=== PATIENT | female | born 1945 | race Caucasian/White ===

== ENCOUNTER 2023-10-23 15:52 | Inpatient (IN) | payer OTHER ==
[2023-10-23] MEDS ORDERED: ONDANSETRON 4 MG/2 ML VIAL ONE (16:09)
[2023-10-23] MEDS ORDERED: MORPHINE 4 MG/ML SYR ONE (16:09)
[2023-10-23] MEDS ORDERED: PANTOPRAZOLE 40 MG INJ ONE (16:09)
[2023-10-23] MEDS ORDERED: FAMOTIDINE 20 MG/2 ML VIAL IV ONE (16:10)
[2023-10-23] MEDS ORDERED: NA CHLORIDE 0.9% 1,000 ML ONE ×2 (16:10→19:06)
[2023-10-23 16:22] LABS: Absolute Lymphocytes (CBC) 0.3 K/uL (0.7-4.9); Absolute Neutrophil 1.5 K/uL (1.8-8.0); Basophils % 0.4 % (0-1.3); Eosinophils % 0.4 % (0-4.4); Hematocrit 37.2 % (36.0-45.0); Hemoglobin 12.4 g/dL (12.0-15.0); Lymphocytes % 15.1 % (15.3-44.8); MCH 29.7 pg (27.0-35.0); MCHC 33.4 g/dL (32.0-36.0); MPV 8.8 fL (7.6-11.3); Monocytes % 0.6 % (3.3-12.3); Neutrophils % 83.5 % (41.7-73.7); Nucleated Red Blood Cells % 0.7 % (0-0); Platelets 265 thou/uL (152-406); RBC Red Blood Cell Count 4.17 M/uL (3.86-4.86)
[2023-10-23 16:43] LABS: Albumin 3.1 g/dL (3.4-5.0); Anion Gap 18.7 mEq/L (5.0-15.0); Bilirubin Total 0.6 mg/dL (0.2-1.0); Protein, Total 6.1 g/dL (6.4-8.2)
[2023-10-23 16:46] LABS: Potassium 1.7 mEq/L (3.5-5.1)
[2023-10-23] MEDS ORDERED: KCL 20 MEQ/100 mL IVPB 200 ML IV ONE (16:47)
[2023-10-23] MEDS ORDERED: Magnesium Sulfate 2gm IVPB 2 G/50 ML BAG IV ONE (16:47)
[2023-10-23 16:54] LABS: Differential Total Cells Count 100
[2023-10-23 16:55] LABS: Band Neutrophils 1 % (0-1); Blood Morphology Comment NOT SEEN (NOT SEEN); Lymphocytes 16 % (15-42); Monocytes 0 % (0-10); Platelet Estimate ADEQ; Segmented Neutrophils 83 % (40-80); White Blood Cell Scan OK (OK)
[2023-10-23 17:11] LABS: Sqamous Epithelial <5 /HPF (None Seen); Urine Bacteria <20 /HPF (<20); Urine Bilirubin NEGATIVE (Negative); Urine Blood 3+ (OVER) (Negative); Urine Clarity Extremely Turbid (Clear); Urine Color Light-Brown (Yellow); Urine Culture Reflex Order REFLEXED; Urine Glucose 4+ (Over) (Negative); Urine Ketones 1+ (Negative); Urine Microscopic Reflex YN ORDER UMIC; Urine Nitrite NEGATIVE (Negative); Urine Protein 1+ (Negative); Urine RBC >50 /HPF (None Seen); Urine Urobilinogen Normal (Normal); Urine WBC >50 /HPF (<5); Urine Yeast (Budding) Trace /HPF (None Seen)
[2023-10-23 17:43] LABS: CDIFF INTERNAL NEG CONTROL White Background (WHITE BKGD); STOOL CONSISTENCY Formed/Solid (soft)
[2023-10-23 17:44] LABS: C.diff Antigen/Toxin Ag neg : Tox neg (NEG : NEG)
[2023-10-23] MEDS ORDERED: CEFTRIAXONE 1000 MG/VIAL ONE (17:55)
[2023-10-23] MEDS ORDERED: NA CHLORIDE 0.9% 50 ML ONE (17:56)
--- NOTE | 2023-10-23 18:36 | RAD REPORT ---
EXAM DESCRIPTION: CT - Abdomen Pelvis W Contrast - 10/23/2023 5:14 pm CLINICAL HISTORY: ABD PAIN COMPARISON: No comparisons TECHNIQUE: Thin cut axial CT imaging of the abdomen and pelvis was performed following intravenous a dministration of iodinated contrast. Multiplanar reformats were generated and reviewed. All CT scans are performed using dose optimization technique as appropriate and may include automated exposure control or mA/KV adjustment according to patient size. FINDINGS: No suspicious findings in the lung bases. The liver demonstrates areas of hypoattenuation extending along the periportal tracts, suggesting a d egree of periportal edema. Adrenal glands, spleen, and pancreas show no suspicious findings. Mild per icholecystic fluid. Cholelithiasis. Symmetric renal function is seen with no suspicious mass or radiopaque calculi. Mild right perinephri c edema. Mild right hydronephrosis and proximal hydroureter. Small amounts of gas along the proximal to mid right ureter and right upper to mid calices. Small volume of air layering anti dependently in the urinary bladder. Mild bowel wall thickening throughout the ascending through descending colon. Minimally prominent neli rt segments of small bowel with short-segment air-fluid levels, with no clear transition point. No fr ee air, free fluid or inflammatory stranding. No hernia, mass or bulky lymphadenopathy. The urinary b ladder is without significant finding. Moderate vertebral body height loss at L3, likely related to chronic superior endplate compression de formity. Diffuse osteopenia. No other suspicious bony findings. IMPRESSION: Mild bowel wall thickening throughout most of the colon proximally, suggesting segmental colitis. Short segments of mildly prominent fluid-filled small bowel as well, may relate to enteriti s or mild ileus. No evidence of obstruction. Mild right hydronephrosis and proximal hydroureter. Small amounts of gas along the right upper urinar y tract, concerning for ascending infection with gas-forming organism. Findings suggesting periportal edema. Mild pericholecystic fluid. Please correlate clinically for shayla dence of acute hepatitis. Likely chronic superior endplate compression deformity at L3. The findings were communicated to Mark Purdy on 10/23/2023 at 18:25 hours.
[2023-10-23 18:37] LABS: PT Prothrombin Time 11.9 SECONDS (9.5-12.5); Protime INR 1.08
[2023-10-23] MEDS ORDERED: METRONIDAZOLE 500mg IVPB 500 MG/100 ML BAG IV ONE (18:48)
[2023-10-23] MEDS ORDERED: SODIUM CHLORIDE 0.9% 10ML INJ IV PRN (19:02)
[2023-10-23] MEDS: METRONIDAZOLE 500mg IVPB 500 MG/100 ML BAG IV SCH (19:03)
[2023-10-23] MEDS: CEFTRIAXONE 1,000 MG in NA CHLORIDE 0.9% 50 ML IVPB SCH (19:04)
--- NOTE | 2023-10-23 19:05 | P.HP ---
Certification for Inpatient Patient admitted to: Inpatient With expected LOS: >2 Midnights Practitioner: I am a practitioner with admitting privileges, knowledge of patient current condition, hospital course, and medical plan of care. Services: Services provided to patient in accordance with Admission requirements found in Title 42 Section 412.3 of the Code of Federal Regulations Patient History Date of Service: 10/23/23 Reason for admission: Generalized weakness, nausea vomiting and diarrhea History of Present Illness: 77 yrs old Female with past medical history of hypertension, hyperlipidemia, diabetes, hypothyroidism, came in with nausea vomiting and diarrhea which has been going on for last 2 days and has been progressively worsening. Also associated with abdominal discomfort. Patient has baseline dementia and hence could not provide much of a history hence most of the history is obtained from the chart review and also talking to the family member at the bedside. Patient started having abdominal discomfort initially especially on the left lower quadrant lateral spreading to diffuse. Not associate with any fever. Associated with diarrhea. Had some blood in the stool. No sick contacts. Denies any chest pain or shortness of breath. Associated with nausea and vomiting. Patient was assessed in the ER and was found to have UTI as well as colitis and was admitted for further management Home medications list reviewed: Yes - Past Medical/Surgical History Diabetic: Yes Past Medical History: Reviewed- Non-Contributory Past Surgical History: Reviewed- Non-Contributory - Family History Family History: Reviewed- Non-Contributory - Social History Smoking Status: Never smoker Review of Systems is unable to be obtained Physical Examination - Vital Signs Temperature: 98.2 F Blood Pressure: 148/86 Pulse: 88 Respirations: 18 Pulse Ox (%): 94 - Physical Exam General: Alert, Oriented x1, Cooperative, Mild distress HEENT: Atraumatic, Normocephalic Neck: Supple, 2+ carotid pulse no bruit Respiratory: Clear to auscultation bilaterally, Normal air movement Cardiovascular: Regular rate/rhythm, Normal S1 S2 Capillary refill: <2 Seconds Gastrointestinal: W/out hepatosplenomegaly, No masses, No rebound, No guarding, Tenderness Musculoskeletal: No clubbing, No swelling Integumentary: No rashes, No tenderness/swelling Neurological: Normal strength at 5/5 x4 extr, Normal tone, Sensation intact, Normal reflexes 2+, Normal affect Lymphatics: No axilla or inguinal lymphadenopathy - Studies Laboratory Data (last 24 hrs) 10/23/23 10/23/23 10/23/23 18:11 16:01 16:01 WBC 1.80 L Hgb 12.4 Hct 37.2 Plt Count 265 PT 11.9 INR 1.08 APTT 23.0 L Sodium 140 Potassium 1.7 L* BUN 19 H Creatinine 0.96 Glucose 295 H Total Bilirubin 0.6 AST 12 L ALT 16 Alkaline Phosphatase 39 L Lipase 37 Assessment and Plan - Problems (Diagnosis) (1) Colitis Current Visit: Yes Status: Acute Plan: Colitis Monitor closely Started on IV antibiotic C. difficile is negative CT findings noted IV hydration Severe hypokalemia Electrolytes monitor and replace accordingly Lactic acidosis IV hydration Continue antibiotics Will obtain cultures Will change antibiotic as per sensitivity UTI Started on IV antibiotics Empirically Will obtain cultures Change antibiotic as per sensitivity Diabetes Insulin sliding scale Accu-Chek before every meal and at bedtime Hypertension Continue home medications Atarax as needed Leukopenia Monitor CBC in a.m. GI/DVT prophylaxis Advanced directive full code Discharge Plan: Home Plan to discharge in: Greater than 2 days - Advance Directives Does patient have a Living Will: No Does patient have a Durable POA for Healthcare: No - Code Status/Comfort Care Code Status: Full Code Time Spent Managing Pts Care (In Minutes): 49
--- NOTE | 2023-10-23 19:15 | EDPHYS ---
Physician Documentation [facility] Name: Precious Altamirano Age: 77 yrs Sex: Female : 1945 Arrival Date: 10/23/2023 Time: 15:52 Bed 20 Private MD: ED Physician Mark Purdy HPI: 10/22 16:25 This 77 yrs old Female presents to ER via EMS with complaints of diarrhea. rt 16:25 Patient presents to the ED with reported diarrhea, blood in stools. The diarrhea is rt reportedly mostly brown, with blood in the toilet. Patient complains of nausea, vomiting, abdominal pain. Rest the history is limited due to patient with baseline dementia. Unclear what the timing of onset was. Symptoms are moderate in severity, no other aggravating or alleviating factors.. Historical: - Allergies: 16:03 No Known Allergies; mb9 - Home Meds: 16:03 glimepiride 4 mg Oral tablet 1 tab [Active]; hydrochlorothiazide 12.5 mg Oral tablet mb9 [Active]; levothyroxine 112 mcg capsule [Active]; lovastatin 20 mg Oral tablet [Active]; metformin 500 mg Oral tablet [Active]; pioglitazone 30 mg oral tablet [Active]; - PMHx: 16:03 Hypertensive disorder; Hypothyroidism; hyperlipidemia; Diabetes mellitus; mb9 - PSHx: 16:03 None; mb9 - Immunization history:: Adult Immunizations up to date. - Infectious Disease History:: Denies. - Social history:: Smoking status: Patient denies any tobacco usage or history of. - Family history:: not pertinent. ROS: 16:25 Unable to obtain ROS due to baseline dementia, rt Exam: 16:25 Constitutional: This is a well developed, well nourished patient who is awake, alert, rt and in no acute distress. Head/Face: Normocephalic, atraumatic. Chest/axilla: Normal chest wall appearance and motion. Nontender with no deformity. No lesions are appreciated. Cardiovascular: Regular rate and rhythm with a normal S1 and S2. No gallops, murmurs, or rubs. Normal PMI, no JVD. No pulse deficits. Respiratory: Lungs have equal breath sounds bilaterally, clear to auscultation and percussion. No rales, rhonchi or wheezes noted. No increased work of breathing, no retractions or nasal flaring. Skin: Warm, dry with normal turgor. Normal color with no rashes, no lesions, and no evidence of cellulitis. MS/ Extremity: Pulses equal, no cyanosis. Neurovascular intact. Full, normal range of motion. Neuro: Awake and alert, GCS 15, oriented to person, place, time, and situation. Cranial nerves II-XII grossly intact. Motor strength 5/5 in all extremities. Sensory grossly intact. Cerebellar exam normal. Normal gait. 16:25 ECG was reviewed by the Attending Physician. 16:25 Abdomen/GI: Mild abdominal tenderness diffusely without rebound, guarding, distention. Brown stool in rectal vault, external hemorrhoid noted, Vital Signs: 16:00 BP 153 / 80; Pulse 129; Resp 18; Temp 98.2; Pulse Ox 100% on R/A; Weight 61.23 kg; mb9 Height 5 ft. 4 in. ; Pain 10/10; 16:42 BP 107 / 53; Pulse 132; Resp 18; Pulse Ox 100% on R/A; mb9 17:48 BP 147 / 66; Pulse 124; Resp 16; Pulse Ox 99% on R/A; mb9 19:16 BP 108 / 92; Pulse 110; Resp 17; Pulse Ox 97% on R/A; Pain 0/10; tm6 21:11 BP 100 / 57; Pulse 96; Pulse Ox 98% on R/A; Pain 0/10; tm6 16:00 Body Mass Index 23.17 (61.23 kg, 162.56 cm) mb9 16:00 Pain Scale: Adult mb9 19:16 Pain Scale: Adult tm6 21:11 Pain Scale: Adult tm6 MDM: 15:59 Patient medically screened. rt 19:14 Differential Diagnosis UTI, sepsis, colitis. Data reviewed: vital signs, nurses notes, rt lab test result(s), EKG, radiologic studies. Consideration of Admission/Observation Patient was admitted/placed on observation. Management of patient was discussed with the following: Hospitalist: Agrees to admit. Independent interpretation of the following test(s) in the Emergency Department CT Scan: My interpretation is No bowel obstruction seen on interpretation of CT scan images. Care significantly affected by the following chronic conditions: Hypertension. Counseling: I had a detailed discussion with the patient and/or guardian regarding the historical points, exam findings, and any diagnostic results supporting the discharge/admit diagnosis, lab results, radiology results, the need for further work-up and treatment in the hospital. Response to treatment: the patient's symptoms have mildly improved after treatment. ED course: Patient's initial presentation was not thought to be due to sepsis, thought to be due to GI bleed. Once infectious source (UTI) was identified, blood cultures, lactate were drawn, IV fluids were started. Patient did meet septic shock criteria with a lactate greater than 4, at that time, further fluids were added. Patient to be admitted for further care.. 10/22 16:00 Order name: CBC with Diff; Complete Time: 17:52 rt 10/22 16:00 Order name: CMP; Complete Time: 17:52 rt 10/22 16:00 Order name: Lipase; Complete Time: 17:52 rt 10/22 16:00 Order name: Urinalysis w/ reflexes; Complete Time: 17:52 rt 10/22 16:24 Order name: CDIFF; Complete Time: 17:52 rt 10/22 16:26 Order name: CBC Smear Scan; Complete Time: 17:52 EDMS 10/22 16:55 Order name: Manual Differential; Complete Time: 17:52 EDMS 10/22 17:19 Order name: Urine Culture EDMS 10/22 17:53 Order name: Blood Culture Adult (2) rt 10/22 17:53 Order name: Lactate w/ 2H reflex if indic. rt 10/22 17:53 Order name: Protime (+inr); Complete Time: 18:49 rt 10/22 17:53 Order name: Ptt, Activated; Complete Time: 18:49 rt 10/22 19:04 Order name: Urinalysis w/ reflexes EDMS 10/22 19:04 Order name: CBC with Automated Diff EDMS 10/22 19:04 Order name: CBC with Automated Diff EDMS 10/22 19:04 Order name: Comprehensive Metabolic Panel EDMS 10/22 19:04 Order name: Comprehensive Metabolic Panel EDNH 10/22 19:06 Order name: Potassium EDMS 10/22 19:06 Order name: Potassium EDNH 10/22 20:57 Order name: CMP tm6 10/22 16:00 Order name: CT Abd/Pelvis - IV Contrast Only; Complete Time: 18:36 rt 10/22 16:00 Order name: IV Saline Lock; Complete Time: 16:03 rt 10/22 16:00 Order name: Labs collected and sent; Complete Time: 16:03 rt 10/22 16:43 Order name: Straight Cath - Urine; Complete Time: 16:43 mb9 10/22 16:43 Order name: EKG - Nurse/Tech; Complete Time: 16:43 mb9 10/22 17:53 Order name: Accucheck; Complete Time: 17:55 rt 10/22 17:53 Order name: Cardiac monitoring; Complete Time: 17:55 rt 10/22 17:53 Order name: IV Saline Lock - Large Bore; Complete Time: 17:55 rt 10/22 17:53 Order name: O2 Per Protocol; Complete Time: 17:55 rt 10/22 17:53 Order name: O2 Sat Monitoring; Complete Time: 17:55 rt 10/22 17:53 Order name: Vital Signs; Complete Time: 17:55 rt EC:25 Rate is 129 beats/min. Rhythm is regular, Sinus tachycardia with No ectopy. Left axis rt deviation noted. QRS interval is normal. QT interval is normal. No Q waves. Administered Medications: 16:08 Drug: Ondansetron IVP 4 mg IVP once; over 2 minutes Route: IVP; Site: right antecubital;mb9 18:53 Follow up: Response: No adverse reaction mb9 16:10 Drug: NS 0.9% IV 1000 ml IV at 1 bolus Per protocol; 1000 mL bolus Route: IV; Rate: 1 mb9 bolus; Site: right antecubital; 18:53 Follow up: Response: No adverse reaction; IV Status: Completed infusion mb9 16:10 Drug: morphine IVP or IV 2 mg IVP once over 4 mins Route: IVP; Infused Over: 4 mins; mb9 Site: right antecubital; 18:53 Follow up: Response: No adverse reaction mb9 16:16 Drug: Famotidine IVP 20 mg IVP once; dilute with 10 mL 0.9% NaCl; give over 2 minutes mb9 Route: IVP; Site: right antecubital; 18:53 Follow up: Response: No adverse reaction mb9 16:19 Drug: Pantoprazole IVP 40 mg IVP once Route: IVP; Site: right antecubital; mb9 16:53 Follow up: Response: No adverse reaction mb9 16:50 Drug: Magnesium Sulfate IVPB 2 grams IVPB once over 2 hrs Route: IVPB; Infused Over: 2 mb9 hrs; Site: right antecubital; 18:52 Follow up: Response: No adverse reaction; IV Status: Completed infusion mb9 17:00 Drug: Potassium Chloride IV 40 mEq IV at calculated rate once; administer over 4 hours mb9 Route: IV; Rate: calculated rate; Site: right antecubital; 18:15 Drug: Rocephin IV 1 grams IV at calculated rate once; Given slow IV push per pharmacy mb9 instructions Route: IV; Rate: calculated rate; Site: left forearm; 18:52 Follow up: Response: No adverse reaction; IV Status: Completed infusion mb9 18:52 Drug: metroNIDAZOLE IVPB 500 mg 100 ml IVPB at 200 ml/hr once over 30 mins Volume: 100 mb9 ml; Route: IVPB; Rate: 200 ml/hr; Infused Over: 30 mins; Site: left forearm; 19:16 Drug: NS 0.9% IV (30 ml/kg) 30 ml/kg IV at bolus once; Sepsis Protocol, subtract fluids tm6 already given Route: IV; Rate: bolus; Site: left antecubital; Disposition Summary: 10/23/23 19:14 Hospitalization Ordered Notes: Hospitalization Status: Inpatient Admission rt Provider: Gigi Sebastian rt [facility] ([facility] rt Condition: Guarded rt Problem: new rt Symptoms: have improved rt Bed/Room Type: Standard rt Room Assignment: 203(10/23/23 19:30) vk Diagnosis - Colitis rt - UTI rt - Septic shock rt - Hypokalemia rt Forms: - Medication Reconciliation Form rt - SBAR form rt - Leadership Thank You Letter rt Critical care time excluding procedures: 19:14 Critical care time: Bedside Care: 30 minutes, Consultation: 5 minutes. Total time: 35 rt minutes Signatures: Dispatcher [employer] Yolanda Avalos RN RN mb9 Mark Purdy MD MD rt Jag Perera RN RN tm6 Shereen Campbell Corrections: (The following items were deleted from the chart) 17:54 17:54 BLOOD CULTURE*+BA.LAB.BRZ ordered. EDMS EDMS 17:54 17:54 LACTATE+C.LAB.BRZ ordered. EDMS EDMS 17:54 PROTIME (+INR)+COAG.LAB.STACY ordered. EDMS EDMS 17:54 PTT, ACTIVATED+COAG.LAB.STACY ordered. EDMS EDMS :30 19:14 rt vk
--- NOTE | 2023-10-23 19:15 | ER ---
Nurse's Notes [facility] Name: Precious Altamirano Age: 77 yrs Sex: Female : 1945 Arrival Date: 10/23/2023 Time: 15:52 Bed 20 Private MD: Diagnosis: Colitis;UTI;Septic shock;Hypokalemia Presentation: 10/22 16:00 Chief complaint: Patient states: "toned out from [facility] for nausea and mb9 bloody stools that started today. 20 g right AC, 4 mg Zofran, and 1 Liter of NS.". Coronavirus screen: Vaccine status: Patient reports receiving the 2nd dose of the covid vaccine. Ebola Screen: No symptoms or risks identified at this time. Initial Sepsis Screen: Does the patient meet any 2 criteria? No. Patient's initial sepsis screen is negative. Does the patient have a suspected source of infection? No. Patient's initial sepsis screen is negative. Risk Assessment: Do you want to hurt yourself or someone else? Patient reports no desire to harm self or others. Onset of symptoms was October 23, 2023. 16:00 Method Of Arrival: EMS: [facility] mb9 16:00 Acuity: JAILENE 2 mb9 Triage Assessment: 16:01 General: Appears in no apparent distress. Behavior is calm, cooperative. Pain: mb9 Complains of pain in abdomen Pain does not radiate. Pain currently is 10 out of 10 on a pain scale. Quality of pain is described as throbbing, Pain began suddenly, Is continuous. EENT: No signs and/or symptoms were reported regarding the EENT system. Neuro: [place] Agitation-Sedation Scale (RASS): 0 - Alert and Calm Level of Consciousness is awake, confused, Oriented to person. Cardiovascular: Heart tones S1 S2 present Patient's skin is warm and dry. Respiratory: Airway is patent Respiratory effort is even, unlabored, Respiratory pattern is regular, symmetrical, Breath sounds are clear bilaterally. GI: Abdomen is flat, non-distended, Bowel sounds present X 4 quads. Abd is soft Abdomen is tender to palpation X 4 quads. Parent/caregiver reports the patient having nausea, bloody stools. : No signs and/or symptoms were reported regarding the genitourinary system. Derm: Skin is pink, warm \\T\\ dry. Musculoskeletal: Range of motion: intact in all extremities. Historical: - Allergies: 16:03 No Known Allergies; mb9 - Home Meds: 16:03 glimepiride 4 mg Oral tablet 1 tab [Active]; hydrochlorothiazide 12.5 mg Oral tablet mb9 [Active]; levothyroxine 112 mcg capsule [Active]; lovastatin 20 mg Oral tablet [Active]; metformin 500 mg Oral tablet [Active]; pioglitazone 30 mg oral tablet [Active]; - PMHx: 16:03 Hypertensive disorder; Hypothyroidism; hyperlipidemia; Diabetes mellitus; mb9 - PSHx: 16:03 None; mb9 - Immunization history:: Adult Immunizations up to date. - Infectious Disease History:: Denies. - Social history:: Smoking status: Patient denies any tobacco usage or history of. - Family history:: not pertinent. Screenin:16 [facility] ED Fall Risk Assessment (Adult) History of falling in the last 3 months, mb9 including since admission Yes- fall prone (multiple falls) (3 pts) Confusion or Disorientation Yes (5 pts) Intoxicated or Sedated No (0 pts) Impaired Gait No (0 pts) Mobility Assist Device Used No (0 pt) Altered Elimination No (0 pt) Score/Fall Risk Level 3 or more points = High Risk Oriented to surroundings, Maintained a safe environment, Educated pt \\T\\ family on fall prevention, incl call for assistance when getting out of bed, Assessed \\T\\ reinforced patient's understanding of fall precautions, Provided non-skid footwear. Abuse screen: Denies threats or abuse. Nutritional screening: No deficits noted. Tuberculosis screening: No symptoms or risk factors identified. Assessment: 16:54 Reassessment: Patient appears in no apparent distress at this time. No changes from mb9 previously documented assessment. Patient and/or family updated on plan of care and expected duration. Pain level reassessed. 17:54 Reassessment: Patient appears in no apparent distress at this time. No changes from mb9 previously documented assessment. Patient and/or family updated on plan of care and expected duration. Pain level reassessed. 19:16 Reassessment: No changes from previously documented assessment. Patient and/or family tm6 updated on plan of care and expected duration. Pain level reassessed. Patient is alert, oriented x 3, equal unlabored respirations, skin warm/dry/pink. 19:35 Reassessment: per Dr. Sebastian, do not send patient upstairs until potassium infusion is tm6 complete. Redraw potassium level prior to sending patient upstairs, but do not have to wait for the results. 21:12 Reassessment: Patient appears in no apparent distress at this time. No changes from tm6 previously documented assessment. Patient and/or family updated on plan of care and expected duration. Pain level reassessed. Patient is alert, oriented x 3, equal unlabored respirations, skin warm/dry/pink. Vital Signs: 16:00 BP 153 / 80; Pulse 129; Resp 18; Temp 98.2; Pulse Ox 100% on R/A; Weight 61.23 kg; mb9 Height 5 ft. 4 in. ; Pain 10/10; 16:42 BP 107 / 53; Pulse 132; Resp 18; Pulse Ox 100% on R/A; mb9 17:48 BP 147 / 66; Pulse 124; Resp 16; Pulse Ox 99% on R/A; mb9 19:16 BP 108 / 92; Pulse 110; Resp 17; Pulse Ox 97% on R/A; Pain 0/10; tm6 21:11 BP 100 / 57; Pulse 96; Pulse Ox 98% on R/A; Pain 0/10; tm6 16:00 Body Mass Index 23.17 (61.23 kg, 162.56 cm) mb9 16:00 Pain Scale: Adult mb9 19:16 Pain Scale: Adult tm6 21:11 Pain Scale: Adult tm6 ED Course: 15:59 Patient arrived in ED. rt 15:59 Yolanda Merida RN is Primary Nurse. mb9 16:01 Mark Purdy MD is Attending Physician. rt 16:01 Triage completed. mb9 16:01 Arm band placed on. mb9 16:16 Placed in gown. Bed in low position. Call light in reach. Side rails up X 1. Adult w/ mb9 patient. Provided Education on: press call light if needing anything. Client placed on continuous cardiac and pulse oximetry monitoring. NIBP monitoring applied. 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 16:17 Served as a workers compensation paralegal during rectal exam. mb9 16:42 Repositioned patient. Cleaned of incontinence. Linen changed. mb9 16:42 EKG done, by ED staff, reviewed by Mark Purdy MD. Maintain EMS IV. Dressing mb9 intact. Good blood return noted. Site clean \\T\\ dry. Gauge \\T\\ site: 20g right AC. 16:42 Straight cath inserted, using sterile technique, 16 Fr. Specimen obtained. Returned mb9 bloody urine. 16:44 Notified ED physician of a critical lab result(s). K 1.7. hb 17:16 CT Abd/Pelvis - IV Contrast Only In Process Unspecified. EDMS 17:47 Inserted saline lock: 22 gauge in left forearm, using aseptic technique. mb9 18:24 Blood Culture Adult (2) Sent. mb9 18:24 Protime (+inr) Sent. mb9 18:24 Ptt, Activated Sent. mb9 18:53 Notified ED physician of a critical lab result(s). LACTATE 5.7. hb 18:53 Repositioned patient. Cleaned of incontinence. Linen changed. mb9 18:54 Door closed. Noise minimized. Warm blanket given. Pillow given. mb9 18:54 Patient admitted, IV remains in place. mb9 18:58 Report given to FEMI Rm. mb9 19:13 Gigi Sebastian MD is Hospitalizing Provider. rt 21:25 Repositioned patient. Cleaned of incontinence. tm6 Administered Medications: 16:08 Drug: Ondansetron IVP 4 mg IVP once; over 2 minutes Route: IVP; Site: right antecubital;mb9 18:53 Follow up: Response: No adverse reaction mb9 16:10 Drug: NS 0.9% IV 1000 ml IV at 1 bolus Per protocol; 1000 mL bolus Route: IV; Rate: 1 mb9 bolus; Site: right antecubital; 18:53 Follow up: Response: No adverse reaction; IV Status: Completed infusion mb9 16:10 Drug: morphine IVP or IV 2 mg IVP once over 4 mins Route: IVP; Infused Over: 4 mins; mb9 Site: right antecubital; 18:53 Follow up: Response: No adverse reaction mb9 16:16 Drug: Famotidine IVP 20 mg IVP once; dilute with 10 mL 0.9% NaCl; give over 2 minutes mb9 Route: IVP; Site: right antecubital; 18:53 Follow up: Response: No adverse reaction mb9 16:19 Drug: Pantoprazole IVP 40 mg IVP once Route: IVP; Site: right antecubital; mb9 16:53 Follow up: Response: No adverse reaction mb9 16:50 Drug: Magnesium Sulfate IVPB 2 grams IVPB once over 2 hrs Route: IVPB; Infused Over: 2 mb9 hrs; Site: right antecubital; 18:52 Follow up: Response: No adverse reaction; IV Status: Completed infusion mb9 17:00 Drug: Potassium Chloride IV 40 mEq IV at calculated rate once; administer over 4 hours mb9 Route: IV; Rate: calculated rate; Site: right antecubital; 18:15 Drug: Rocephin IV 1 grams IV at calculated rate once; Given slow IV push per pharmacy mb9 instructions Route: IV; Rate: calculated rate; Site: left forearm; 18:52 Follow up: Response: No adverse reaction; IV Status: Completed infusion mb9 18:52 Drug: metroNIDAZOLE IVPB 500 mg 100 ml IVPB at 200 ml/hr once over 30 mins Volume: 100 mb9 ml; Route: IVPB; Rate: 200 ml/hr; Infused Over: 30 mins; Site: left forearm; 19:16 Drug: NS 0.9% IV (30 ml/kg) 30 ml/kg IV at bolus once; Sepsis Protocol, subtract fluids tm6 already given Route: IV; Rate: bolus; Site: left antecubital; Medication: 16:17 VIS not applicable for this client. mb9 Outcome: 19:14 Decision to Hospitalize by Provider. rt 21:25 Admitted to Med/surg accompanied by tech, family with patient, via stretcher, room 203, tm6 with chart, 21:25 Condition: stable 21:25 Instructed on the need for admit, 21:26 Patient left the ED. tm6 Signatures: Dispatcher [employer] EDOK Amanda Bella RN RN Yolanda Merida RN RN mb9 Mark Purdy MD MD rt Jag Perera RN RN tm6
[2023-10-23] MEDS: NS KCL 40MEQ 40 MEQ/1,000 ML BAG IV SCH (20:00)
[2023-10-23] MEDS: PANTOPRAZOLE 40 MG INJ IVP SCH (21:00)
[2023-10-23 22:12] LABS: Albumin 3.1 g/dL (3.4-5.0); Albumin/Globulin Ratio 0.9 (1.1-1.8); Anion Gap 19.4 mEq/L (5.0-15.0); Bilirubin Total 0.4 mg/dL (0.2-1.0); Globulin 3.4 g/dL (2.3-3.5); Protein, Total 6.5 g/dL (6.4-8.2)
[2023-10-23 22:15] LABS: Potassium 2.4 mEq/L (3.5-5.1)
[2023-10-23] MEDS: KCL 20 MEQ/100 mL IVPB 100 ML IV ONE (22:36)
[2023-10-23] MEDS: NA CHLORIDE 0.9% 1,000 ML ONE (22:39)
[2023-10-23 22:42] VITALS: BMI 18.5
[2023-10-24 04:45] LABS: Absolute Lymphocytes (CBC) 0.2 K/uL (0.7-4.9); Absolute Monocytes 1.2 K/uL (0.1-1.3); Absolute Neutrophil 19.8 K/uL (1.8-8.0); Basophils % 0.2 % (0-1.3); Hematocrit 34.1 % (36.0-45.0); Lymphocytes % 1.2 % (15.3-44.8); MCH 29.3 pg (27.0-35.0); MCHC 32.4 g/dL (32.0-36.0); MCV 90.3 fL (80-100); MPV 10.5 fL (7.6-11.3); Monocytes % 5.7 % (3.3-12.3); Neutrophils % 92.9 % (41.7-73.7); Platelets 228 thou/uL (152-406); RBC Red Blood Cell Count 3.77 M/uL (3.86-4.86); Red Cell Distribution Width 13.9 % (12.1-15.2)
[2023-10-24 05:05] LABS: Albumin/Globulin Ratio 0.9 (1.1-1.8); Anion Gap 18.7 mEq/L (5.0-15.0); Bilirubin Total 0.5 mg/dL (0.2-1.0); Globulin 3.3 g/dL (2.3-3.5); Magnesium 1.8 mg/dL (1.6-2.4); Phosphorus 2.7 mg/dL (2.5-4.9); Potassium 2.7 mEq/L (3.5-5.1); Protein, Total 6.3 g/dL (6.4-8.2)
[2023-10-24] MEDS: KCL 20 MEQ/100 mL IVPB 100 ML IV ONE (05:14)
[2023-10-24 05:55] LABS: Band Neutrophils 29 % (0-1); Blood Morphology Comment NOTED (NOT SEEN); Burr Cells 1+; Differential Total Cells Count 100; Lymphocytes 4 % (15-42); Metamyelocytes 5 % (0-0); Monocytes 1 % (0-10); Myelocytes 2 % (0-0); Platelet Estimate ADEQ; Reactive Lymphocytes 2 %; Segmented Neutrophils 57 % (40-80)
[2023-10-24] MEDS ORDERED: D50W 25 GM/50 ML SYRINGE IV PRN (08:40)
[2023-10-24] MEDS ORDERED: GLUCAGON 1 MG/VIAL IM PRN (08:40)
--- NOTE | 2023-10-24 08:41 | P.PN ---
Subjective Date of Service: 10/24/23 Chief Complaint: Generalized weakness, nausea vomiting and diarrhea Subjective: No new changes <Natalie Lin - Last Filed: 10/24/23 08:41> Date of Service: 10/24/23 <BarbaranicJc - Last Filed: 10/24/23 12:16> Review of Systems 10-point ROS is otherwise unremarkable General: As per HPI Gastrointestinal: Other (denies pain this am) <Natalie Lin - Last Filed: 10/24/23 08:41> Physical Examination - Vital Signs Temperature: 97.9 F Blood Pressure: 94/53 Pulse: 88 Respirations: 20 Pulse Ox (%): 94 - Physical Exam General: Alert, Oriented x3, Other (appears dry) HEENT: Atraumatic, Normocephalic Neck: 2+ carotid pulse no bruit Respiratory: Normal air movement Cardiovascular: Normal pulses Capillary refill: <2 Seconds Gastrointestinal: Hypoactive, Soft and benign Musculoskeletal: No swelling, No contractures Integumentary: No rashes Neurological: Normal speech Lymphatics: No axilla or inguinal lymphadenopathy External genitalia: Deferred Rectal: Deferred - Studies Laboratory Data (last 24 hrs) 10/23/23 10/23/23 10/23/23 18:11 16:01 16:01 WBC 1.80 L Hgb 12.4 Hct 37.2 Plt Count 265 PT 11.9 INR 1.08 APTT 23.0 L Sodium 140 Potassium 1.7 L* BUN 19 H Creatinine 0.96 Glucose 295 H Total Bilirubin 0.6 AST 12 L ALT 16 Alkaline Phosphatase 39 L Lipase 37 <aNtalie Lin - Last Filed: 10/24/23 08:41> - Studies Laboratory Data (last 24 hrs) 10/23/23 10/23/23 10/23/23 18:11 16:01 16:01 WBC 1.80 L Hgb 12.4 Hct 37.2 Plt Count 265 PT 11.9 INR 1.08 APTT 23.0 L Sodium 140 Potassium 1.7 L* BUN 19 H Creatinine 0.96 Glucose 295 H Total Bilirubin 0.6 AST 12 L ALT 16 Alkaline Phosphatase 39 L Lipase 37 <Jc Dorman - Last Filed: 10/24/23 12:16> Assessment And Plan - Plan (1) Colitis Current Visit: Yes Status: Acute Plan: Colitis Monitor closely Started on IV antibiotic C. difficile is negative CT findings noted IV hydration Severe hypokalemia Electrolytes monitor and replace accordingly Lactic acidosis IV hydration Continue antibiotics Will obtain cultures Will change antibiotic as per sensitivity UTI Started on IV antibiotics Empirically Will obtain cultures Change antibiotic as per sensitivity Diabetes Insulin sliding scale Accu-Chek before every meal and at bedtime Hypertension Continue home medications Atarax as needed Leukopenia Monitor CBC in a.m. Wide fluctuation in WBC? no noted steroids or KULDEEP administered, will continue to monitor GI/DVT prophylaxis Advanced directive full code Discharge Plan: Home Plan to discharge in: Greater than 2 days <Natalie Lin - Last Filed: 10/24/23 08:41> - Plan Pt seen and examined. I agree with the note by the SHIFT SUPERVISOR RN. Pt was sleeping when I saw her. Will continue rocephin and flagyl for the UTI and colitis. Blood cx is growing GNR. Will increase rocephin to 2gm iv daily. F/u blood cx. Will replete electrolytes and continue home meds for other chronic medical problems. <Jc Dorman - Last Filed: 10/24/23 12:16>
[2023-10-24] MEDS ORDERED: D10W 125 ML IV PRN (08:52)
[2023-10-24] MEDS: CEFTRIAXONE 2,000 MG in NA CHLORIDE 0.9% 100 ML IVPB SCH (09:00)
[2023-10-24] MEDS: KCL 20 MEQ/100 mL IVPB 20 MEQ/100 ML BAG IV SCH (09:00)
[2023-10-24] MEDS ORDERED: CEFTRIAXONE 2,000 MG in NA CHLORIDE 0.9% 50 ML IVPB SCH (09:00)
[2023-10-24] MEDS: INSULIN GLARGINE 100 UNIT/ML SQ SCH (09:25)
[2023-10-24] MEDS: MAGNESIUM SULFATE 1 gm IVPB 1 GM/100 ML BAG IV ONE (09:27)
[2023-10-24] MEDS: POTASSIUM CL SA 10 MEQ TAB PO SCH (09:30)
[2023-10-24] MEDS: NA CHLORIDE 0.9% 1,000 ML with POTASSIUM CL 40 MEQ IV SCH (10:19)
[2023-10-24] MEDS: CEFTRIAXONE 2,000 MG in NA CHLORIDE 0.9% 100 ML IV SCH (11:05)
--- NOTE | 2023-10-24 12:22 | EKG ---
Test Date: 2023-10-23 Test Time: 16:21:18 Chartered Accountant: MAGO MEASUREMENT RESULTS: Intervals: Rate: 129 MI: QRSD: 90 QT: 420 QTc: 615 [place]: P: MI: QRS: 253 T: 77 INTERPRETIVE STATEMENTS: Suspect arm lead reversal, interpretation assumes no reversal Accelerated Junctional rhythm Inferior infarct, age undetermined Anterolateral infarct, age undetermined Abnormal ECG No previous ECG available for comparison Electronically Signed On 10-24-23 12:20:[address]
[2023-10-24] MEDS: INSULIN LISPRO 100 UNIT/ML SQ SCH (13:25)
[2023-10-24] MEDS: ACETAMINOPHEN 325 MG TABLET PO PRN (17:44)
[2023-10-24] MEDS: POTASSIUM 25 MEQ EFFERV TAB PO ONE (17:44)
[2023-10-24] MEDS: MELATONIN 5 MG TABLET PO PRN (21:01)
[2023-10-25 04:33] LABS: Absolute Lymphocytes (CBC) 0.5 K/uL (0.7-4.9); Absolute Monocytes 0.7 K/uL (0.1-1.3); Absolute Neutrophil 16.3 K/uL (1.8-8.0); Basophils % 0.1 % (0-1.3); Eosinophils % 0.2 % (0-4.4); Hematocrit 30.6 % (36.0-45.0); Hemoglobin 10.1 g/dL (12.0-15.0); Lymphocytes % 3.1 % (15.3-44.8); MCH 29.4 pg (27.0-35.0); MCHC 32.9 g/dL (32.0-36.0); MCV 89.4 fL (80-100); MPV 10.5 fL (7.6-11.3); Platelets 204 thou/uL (152-406); RBC Red Blood Cell Count 3.42 M/uL (3.86-4.86); Red Cell Distribution Width 14.2 % (12.1-15.2)
[2023-10-25 04:36] LABS: Neutrophils % 92.6 % (41.7-73.7)
[2023-10-25 04:47] LABS: Albumin 2.7 g/dL (3.4-5.0); Albumin/Globulin Ratio 0.8 (1.1-1.8); Bilirubin Total 0.3 mg/dL (0.2-1.0); Globulin 3.5 g/dL (2.3-3.5); Magnesium 2.1 mg/dL (1.6-2.4); Protein, Total 6.2 g/dL (6.4-8.2)
[2023-10-25] MEDS: POTASSIUM 25 MEQ EFFERV TAB PO ONE (05:56)
[2023-10-25] MEDS: GLUCERNA SHAKE 237 ML CAN PO SCH (09:49)
--- NOTE | 2023-10-25 11:20 | P.PN ---
Subjective Date of Service: 10/25/23 Chief Complaint: Generalized weakness, nausea vomiting and diarrhea Pt is resting comfortably in bed. She was agitated last night. She ate most of her breakfast this am. She is getting rocephina nd flagyl. No complaints this am. Review of Systems Unremarkable (Due to dementia) Physical Examination - Vital Signs Temperature: 97.1 F Blood Pressure: 95/52 Pulse: 91 Respirations: 14 Pulse Ox (%): 96 - Physical Exam General: Alert, In no apparent distress HEENT: Atraumatic, Normocephalic, PERRLA Neck: Supple, 2+ carotid pulse no bruit Respiratory: Clear to auscultation bilaterally, Normal air movement Cardiovascular: No edema, Normal pulses, Regular rate/rhythm, Normal S1 S2 Capillary refill: <2 Seconds Gastrointestinal: Normal bowel sounds, Soft and benign, Non-distended Musculoskeletal: No clubbing, No swelling Integumentary: No breakdown, No significant lesion Neurological: Normal strength at 5/5 x4 extr, Normal tone, Sensation intact Lymphatics: No axilla or inguinal lymphadenopathy - Studies Microbiology Data (last 24 hrs): 10/23/23 16:40 Clean Catch Urine [place] Count - Final >100,000 CFU/ML. 10/23/23 16:40 Clean Catch Urine - Final Escherichia Coli 10/23/23 18:05 Blood - Blood Blood Culture Gram Stain - Final 10/23/23 18:05 Blood - Blood Gram Stain - Final 10/23/23 18:11 Blood - Blood Blood Culture Gram Stain - Final 10/23/23 18:11 Blood - Blood Gram Stain - Final Assessment And Plan - Plan Colitis: Will continue IVF, rocephin and flagyl. F/u blood cx. C. diff is negative. Severe hypokalemia: Will replete and monitor. K is 3.5. Lactic acidosis: Continue IVF and trend lactate. UTI: Will continue rocephin. Urine cx is growing E. coli. . Diabetes: Continue accuchek, SSI and ADA diet Hypertension: Will continue home med. Leukopenia: WBC is now 8. Will trend GI ppx: protonix DVT ppx: SCD Code: full code Dispo: Pending hospital course
[2023-10-26 06:47] LABS: Absolute Eosinophils 0.1 K/uL (0-0.5); Absolute Lymphocytes (CBC) 0.6 K/uL (0.7-4.9); Absolute Monocytes 0.3 K/uL (0.1-1.3); Absolute Neutrophil 10.6 K/uL (1.8-8.0); Basophils % 0.2 % (0-1.3); Eosinophils % 0.6 % (0-4.4); Hematocrit 28.9 % (36.0-45.0); Hemoglobin 9.7 g/dL (12.0-15.0); MCH 29.5 pg (27.0-35.0); MCHC 33.4 g/dL (32.0-36.0); MCV 88.4 fL (80-100); MPV 9.9 fL (7.6-11.3); Monocytes % 2.6 % (3.3-12.3); Neutrophils % 91.6 % (41.7-73.7); Nucleated Red Blood Cells % 0.1 % (0-0); Platelets 173 thou/uL (152-406); RBC Red Blood Cell Count 3.27 M/uL (3.86-4.86); Red Cell Distribution Width 14.6 % (12.1-15.2)
[2023-10-26 07:00] LABS: Anion Gap 7.3 mEq/L (5.0-15.0); Potassium 3.3 mEq/L (3.5-5.1)
[2023-10-26 08:50] LABS: Band Neutrophils 13 % (0-1); Differential Total Cells Count 100; Lymphocytes 6 % (15-42); Monocytes 4 % (0-10); Segmented Neutrophils 77 % (40-80)
[2023-10-26 08:51] LABS: Dohle Bodies PRESENT; Platelet Estimate ADEQ
[2023-10-26 08:52] LABS: Anisocytosis 1+; Blood Morphology Comment NOTED (NOT SEEN)
--- NOTE | 2023-10-26 10:59 | P.PN ---
Subjective Date of Service: 10/26/23 Chief Complaint: Generalized weakness, nausea vomiting and diarrhea Pt is resting comfortably in bed. She is more alert and interactive. Will obtain repeat blood cx today. She is getting rocephin and flagyl. No complaints this am. Review of Systems General: Unremarkable Eyes: Unremarkable ENT: Unremarkable Respiratory: Unremarkable Cardiovascular: Unremarkable Gastrointestinal: Unremarkable Genitourinary: Unremarkable Musculoskeletal: Unremarkable Integumentary: Unremarkable Neurological: Unremarkable Lymphatics: Unremarkable Physical Examination - Vital Signs Temperature: 97.4 F Blood Pressure: 125/58 Pulse: 85 Respirations: 16 Pulse Ox (%): 97 - Physical Exam General: Alert, In no apparent distress, Oriented x3 HEENT: Atraumatic, Normocephalic, PERRLA Neck: Supple, 2+ carotid pulse no bruit, JVD not distended Respiratory: Clear to auscultation bilaterally, Normal air movement, Diminished Cardiovascular: No edema, Normal pulses, Regular rate/rhythm, Normal S1 S2 Capillary refill: <2 Seconds Gastrointestinal: Normal bowel sounds, Soft and benign, Non-distended Musculoskeletal: No clubbing, No swelling, No contractures Integumentary: No rashes, No breakdown, No significant lesion Neurological: Normal speech, Normal strength at 5/5 x4 extr, Normal tone, Sensation intact Lymphatics: No axilla or inguinal lymphadenopathy - Studies Microbiology Data (last 24 hrs): 10/23/23 18:05 Blood - Blood Blood Culture Gram Stain - Final 10/23/23 18:05 Blood - Blood Gram Stain - Final 10/23/23 18:11 Blood - Blood Blood Culture Gram Stain - Final 10/23/23 18:11 Blood - Blood Gram Stain - Final 10/23/23 16:40 Clean Catch Urine [place] Count - Final >100,000 CFU/ML. 10/23/23 16:40 Clean Catch Urine - Final Escherichia Coli Assessment And Plan - Plan Colitis: Will continue IVF, rocephin and flagyl. F/u blood cx. C. diff is negative. E. coli Bacteremia: Will continue rocephin 2gm iv daily. Will repeat blood cx. Severe hypokalemia: Will replete and monitor. K is 3.3 <- 3.5. Lactic acidosis: Continue IVF and trend lactate. UTI: Will continue rocephin. Urine cx is growing E. coli. . Diabetes: Continue accuchek, SSI and ADA diet Hypertension: Will continue home med. Leukopenia: WBC is now 11.6<- 8. Will trend GI ppx: protonix DVT ppx: SCD Code: full code Dispo: Pending hospital course
[2023-10-26] MEDS: ONDANSETRON 4 MG/2 ML VIAL IV PRN (15:06)
[2023-10-27 03:51] LABS: Absolute Eosinophils 0.1 K/uL (0-0.5); Absolute Lymphocytes (CBC) 0.8 K/uL (0.7-4.9); Absolute Monocytes 0.4 K/uL (0.1-1.3); Absolute Neutrophil 6.7 K/uL (1.8-8.0); Basophils % 0.3 % (0-1.3); Eosinophils % 0.7 % (0-4.4); Hematocrit 29.2 % (36.0-45.0); Hemoglobin 9.8 g/dL (12.0-15.0); Lymphocytes % 9.8 % (15.3-44.8); MCH 29.9 pg (27.0-35.0); MCHC 33.6 g/dL (32.0-36.0); MCV 89.1 fL (80-100); MPV 10.6 fL (7.6-11.3); Platelets 149 thou/uL (152-406); RBC Red Blood Cell Count 3.28 M/uL (3.86-4.86); Red Cell Distribution Width 14.8 % (12.1-15.2)
[2023-10-27 04:07] LABS: Anion Gap 8.6 mEq/L (5.0-15.0); Potassium 3.6 mEq/L (3.5-5.1)
[2023-10-27 04:12] LABS: Neutrophils % 84.2 % (41.7-73.7)
[2023-10-27] MEDS: POTASSIUM CL SA 10 MEQ TAB PO ONE (09:03)
--- NOTE | 2023-10-27 10:38 | P.PN ---
Subjective Date of Service: 10/27/23 Chief Complaint: Generalized weakness, nausea vomiting and diarrhea Pt is resting comfortably in bed. She is more alert and interactive. She does not want to eat or get out of bed. I encouraged her to eat. No growth on blood cx. She is getting rocephin and flagyl. No complaints this am. Review of Systems General: Unremarkable Eyes: Unremarkable ENT: Unremarkable Respiratory: Unremarkable Cardiovascular: Unremarkable Gastrointestinal: Unremarkable Genitourinary: Unremarkable Musculoskeletal: Unremarkable Integumentary: Unremarkable Neurological: Unremarkable Lymphatics: Unremarkable Physical Examination - Vital Signs Temperature: 97.7 F Blood Pressure: 131/69 Pulse: 73 Respirations: 16 Pulse Ox (%): 98 - Physical Exam General: Alert, In no apparent distress, Oriented x3 HEENT: Atraumatic, Normocephalic, PERRLA Neck: Supple, 2+ carotid pulse no bruit, JVD not distended Respiratory: Clear to auscultation bilaterally, Normal air movement, Diminished Cardiovascular: No edema, Normal pulses, Regular rate/rhythm Capillary refill: <2 Seconds Gastrointestinal: Normal bowel sounds, Soft and benign, Non-distended Musculoskeletal: No clubbing, No swelling, No contractures Integumentary: No rashes, No breakdown, No significant lesion Neurological: Normal speech, Normal strength at 5/5 x4 extr, Normal tone, Sensation intact Lymphatics: No axilla or inguinal lymphadenopathy - Studies Microbiology Data (last 24 hrs): 10/23/23 18:05 Blood - Blood Aerobic Blood Culture - Final Escherichia Coli 10/23/23 18:05 Blood - Blood Blood Culture Gram Stain - Final 10/23/23 18:05 Blood - Blood Anaerobic Blood Culture - Final Escherichia Coli 10/23/23 18:05 Blood - Blood Gram Stain - Final 10/23/23 18:11 Blood - Blood Aerobic Blood Culture - Final Escherichia Coli 10/23/23 18:11 Blood - Blood Blood Culture Gram Stain - Final 10/23/23 18:11 Blood - Blood Anaerobic Blood Culture - Final Escherichia Coli 10/23/23 18:11 Blood - Blood Gram Stain - Final Assessment And Plan - Plan Colitis: Will continue IVF, rocephin and flagyl. F/u blood cx. C. diff is negative. E. coli Bacteremia: Will continue rocephin 2gm iv daily. No growth on repeat blood cx. Severe hypokalemia: Will replete and monitor. K is 3.6<- 3.3 <- 3.5. Lactic acidosis: Continue IVF and trend lactate. UTI: Will continue rocephin. Urine cx is growing E. coli. . Diabetes: Continue accuchek, SSI and ADA diet Hypertension: Will continue home med. Leukopenia: WBC is now 8<- 11.6<- 8. Will trend GI ppx: protonix DVT ppx: SCD Code: full code Dispo: Pending hospital course
[2023-10-28 04:22] LABS: Absolute Eosinophils 0.1 K/uL (0-0.5); Absolute Lymphocytes (CBC) 0.7 K/uL (0.7-4.9); Absolute Monocytes 0.5 K/uL (0.1-1.3); Absolute Neutrophil 4.9 K/uL (1.8-8.0); Basophils % 0.5 % (0-1.3); Eosinophils % 2.2 % (0-4.4); Hematocrit 34.5 % (36.0-45.0); Hemoglobin 11.4 g/dL (12.0-15.0); Lymphocytes % 11.4 % (15.3-44.8); MCH 29.4 pg (27.0-35.0); MCHC 32.9 g/dL (32.0-36.0); MCV 89.3 fL (80-100); MPV 10.1 fL (7.6-11.3); Monocytes % 8.4 % (3.3-12.3); Neutrophils % 77.5 % (41.7-73.7); Nucleated Red Blood Cells % 0.1 % (0-0); Platelets 189 thou/uL (152-406); RBC Red Blood Cell Count 3.86 M/uL (3.86-4.86); Red Cell Distribution Width 14.7 % (12.1-15.2)
[2023-10-28 04:49] LABS: Anion Gap 11.2 mEq/L (5.0-15.0); Potassium 4.2 mEq/L (3.5-5.1)
--- NOTE | 2023-10-28 10:45 | P.PN ---
Subjective Date of Service: 10/28/23 Chief Complaint: Generalized weakness, nausea vomiting and diarrhea Pt is resting comfortably in bed. She is pulled out the iv line. Pt refused to get up and work with PT. I encouraged her to eat and work with PT. No growth on repeat blood cx. She is getting rocephin and flagyl. No complaints this am. Review of Systems General: Unremarkable Eyes: Unremarkable ENT: Unremarkable Respiratory: Unremarkable Cardiovascular: Unremarkable Gastrointestinal: Unremarkable Genitourinary: Unremarkable Musculoskeletal: Unremarkable Integumentary: Unremarkable Neurological: Unremarkable Lymphatics: Unremarkable Physical Examination - Vital Signs Temperature: 97.8 F Blood Pressure: 136/68 Pulse: 77 Respirations: 14 Pulse Ox (%): 98 - Physical Exam General: Alert, In no apparent distress, Oriented x3 HEENT: Atraumatic, Normocephalic, PERRLA Neck: Supple, 2+ carotid pulse no bruit, JVD not distended Respiratory: Clear to auscultation bilaterally, Normal air movement Cardiovascular: No edema, Normal pulses, Regular rate/rhythm, Normal S1 S2 Capillary refill: <2 Seconds Gastrointestinal: Normal bowel sounds, Soft and benign, Non-distended Musculoskeletal: No clubbing, No swelling Integumentary: No rashes, No breakdown Neurological: Normal speech, Normal strength at 5/5 x4 extr, Normal tone, Sensation intact Lymphatics: No axilla or inguinal lymphadenopathy - Studies Microbiology Data (last 24 hrs): 10/23/23 18:05 Blood - Blood Aerobic Blood Culture - Final Escherichia Coli 10/23/23 18:05 Blood - Blood Blood Culture Gram Stain - Final 10/23/23 18:05 Blood - Blood Anaerobic Blood Culture - Final Escherichia Coli 10/23/23 18:05 Blood - Blood Gram Stain - Final 10/23/23 18:11 Blood - Blood Aerobic Blood Culture - Final Escherichia Coli 10/23/23 18:11 Blood - Blood Blood Culture Gram Stain - Final 10/23/23 18:11 Blood - Blood Anaerobic Blood Culture - Final Escherichia Coli 10/23/23 18:11 Blood - Blood Gram Stain - Final Assessment And Plan - Plan Colitis: Will continue IVF, rocephin and flagyl. F/u blood cx. C. diff is negative. E. coli Bacteremia: Will continue rocephin 2gm iv daily. No growth on repeat blood cx. Will likely dc pt with cipro Severe hypokalemia: Will replete and monitor. K is 3.6<- 3.3 <- 3.5. Lactic acidosis: Continue IVF and trend lactate. UTI: Will continue rocephin. Urine cx is growing E. coli. . Diabetes: Continue accuchek, SSI and ADA diet Hypertension: Will continue home med. Leukopenia: WBC is now 6.4 <- 8<- 11.6<- 8. Will trend Deconditioning: Consulted PT GI ppx: protonix DVT ppx: SCD Code: full code Dispo: Pending hospital course
[2023-10-29 09:03] VITALS: O2SAT 92
[2023-10-29 09:21] VITALS: BP 146/71; TEMP 96.9
--- NOTE | 2023-10-29 10:30 | P.DS ---
Admission Date: 10/23/23 Discharge Date: 10/29/23 Disposition: TRANSFER TO PENITENTIARY Discharge Condition: GOOD Reason for Admission: Generalized weakness, nausea vomiting and diarrhea Brief History of Present Illness: 77 yrs old Female with past medical history of hypertension, hyperlipidemia, diabetes, hypothyroidism, came in with nausea vomiting and diarrhea which has been going on for last 2 days and has been progressively worsening. Also associated with abdominal discomfort. Patient has baseline dementia and hence could not provide much of a history hence most of the history is obtained from the chart review and also talking to the family member at the bedside. Patient started having abdominal discomfort initially especially on the left lower quadrant lateral spreading to diffuse. Not associate with any fever. A ssociated with diarrhea. Had some blood in the stool. No sick contacts. Denies any chest pain or shortness of breath. Associated with nausea and vomiting. Patient was assessed in the ER and was found to have UTI as well as colitis and was admitted for further management Hospital Course: Pt is a 77 yo female with past medical history of hypertension, dementia, hyperlipidemia, diabetes, and hypothyroidism who presented with nausea, vomiting and diarrhea for 2 days. It progressively worsened and became associated with diffuse abdominal pain and diarrhea. On admission, lab studies show evidence of UTI. CT abd shows evidence of colitis. We admitted pt for colitis and iv rocephin and flagyl. Pt later developed E. coli bacteremia and we increased rocephin to 2gm iv daily. Repeat blood cx on 10/26/23 did not show any growth. We continued home meds for other chronic medical problems. Pt was in NAD prior to discharge. Vital Signs/Physical Exam: Temp Pulse Resp BP Pulse Ox 96.9 F 76 16 146/71 H 98 10/29/23 08:00 10/29/23 08:00 10/29/23 08:00 10/29/23 08:00 10/29/23 08:00 Laboratory Data at Discharge: WBC 6.40 thou/uL (4.3-10.9) 10/28/23 03:15 Hgb 11.4 g/dL (12.0-15.0) L D 10/28/23 03:15 Hct 34.5 % (36.0-45.0) L 10/28/23 03:15 Plt Count 189 thou/uL (152-406) D 10/28/23 03:15 PT 11.9 SECONDS (9.5-12.5) 10/23/23 18:11 INR 1.08 10/23/23 18:11 APTT 23.0 SECONDS (24.3-36.9) L 10/23/23 18:11 Sodium 136 mEq/L (136-145) 10/28/23 03:15 Potassium 4.2 mEq/L (3.5-5.1) D 10/28/23 03:15 BUN 12 mg/dL (7-18) 10/28/23 03:15 Creatinine 0.59 mg/dL (0.55-1.02) 10/28/23 03:15 Glucose 272 mg/dL (74-106) H 10/28/23 03:15 Phosphorus 2.7 mg/dL (2.5-4.9) 10/24/23 04:06 Magnesium 2.1 mg/dL (1.6-2.4) 10/25/23 03:26 Total Bilirubin 0.3 mg/dL (0.2-1.0) 10/25/23 03:26 AST 17 U/L (15-37) 10/25/23 03:26 ALT 18 U/L (13-56) 10/25/23 03:26 Alkaline Phosphatase 45 U/L (45-117) D 10/25/23 03:26 Lipase 37 U/L (13-75) 10/23/23 16:01 Home Medications: Glimepiride 4 mg PO BIDWM 10/23/23 Levothyroxine [Synthroid*] 112 mcg PO [id number] 10/23/23 Lovastatin 20 mg PO BEDTIME 10/23/23 Metformin HCl [Glucophage*] 500 mg PO BIDWM 10/23/23 Pioglitazone HCl [Actos] 30 mg PO DAILY 10/23/23 hydroCHLOROthiazide [Hydrochlorothiazide*] 12.5 mg PO DAILY 10/23/23 Ciprofloxacin HCl [Cipro 500 MG Tablet] 500 mg PO DAILY 7 Days #7 tab 10/29/23 Pantoprazole [Protonix Tab] 40 mg PO DAILY 30 Days #30 tab 10/29/23 metroNIDAZOLE [Flagyl] 500 mg PO Q8H 7 Days #21 tab 10/29/23 New Medications: Ciprofloxacin HCl [Cipro 500 MG Tablet] 500 mg PO DAILY 7 Days #7 tab metroNIDAZOLE [Flagyl] 500 mg PO Q8H 7 Days #21 tab Pantoprazole [Protonix Tab] 40 mg PO DAILY 30 Days #30 tab Diet: AHA Activity: Ad long Followup: Shaylee Verdugo MD [Primary Care Provider] -
== END 2023-10-29 11:22 | DRG 871 ==
LOC: ER 15:52 → ERHOLD 18:59 → 2ND 20:38
PROVIDERS: ADMIT Family Medicine; ATTEND Hospitalist
DX: A41.51 Sepsis due to Escherichia coli [E. coli] (principal); R65.21 Severe sepsis with septic shock; N39.0 Urinary tract infection, site not specified; E87.20 Acidosis, unspecified; F03.911 Unspecified dementia, unspecified severity, with agitation; E87.6 Hypokalemia; I10 Essential (primary) hypertension; E78.5 Hyperlipidemia, unspecified; E11.9 Type 2 diabetes mellitus without complications; E03.9 Hypothyroidism, unspecified; K52.9 Noninfective gastroenteritis and colitis, unspecified; D72.819 Decreased white blood cell count, unspecified; Z79.84 Long term (current) use of oral hypoglycemic drugs; Z79.890 Hormone replacement therapy; Z79.899 Other long term (current) drug therapy
CPT/HCPCS: 36415; 51702; 74177; 80048; 80053; 81001; 82947; 83605; 83690; 83735; 84100; 84132; 85025; 85610; 85730; 87040; 87077; 87086; 87088; 87186; 87205; 87324; 93005; 94760; 97116; 97161; 97530; 99285; C9113; J0696; J1815; J2405; J3475; J3480; J7030; Q9967

== ENCOUNTER 2023-12-08 06:49 | Emergency (ER) | payer OTHER ==
--- NOTE | 2023-12-08 07:43 | RAD REPORT ---
EXAM DESCRIPTION: CT - Head C Spine Cap Wo Con - 12/08/2023 7:16 am CLINICAL HISTORY: fall, head/rib pain COMPARISON: Hip Right 2 View dated 11/04/2023; Abdomen Pelvis W Contrast dated 11/03/2023 TECHNIQUE: CT head without contrast. CT cervical spine without contrast with coronal and sagittal reformatted images. CT chest, abdomen and pelvis with coronal and sagittal reformatted images of the spine. All CT scans are performed using dose optimization technique as appropriate and may include automated exposure control or mA/KV adjustment according to patient size. FINDINGS: CT HEAD WITHOUT CONTRAST: No intracranial hemorrhage, hydrocephalus or extra-axial fluid collection. No acute large vascular te rritory infarct. Cerebral atrophy. Chronic small vessel ischemic changes. The paranasal sinuses and mastoids are clear. The calvarium is intact. CT CERVICAL SPINE WITHOUT CONTRAST: No fracture or subluxation. The prevertebral soft tissues are normal in thickness.Cervical spondylosis. increased neural foramina l narrowing. This is most pronounced at C3-4 secondary to uncovertebral joint and facet hypertrophy. No high-grade central spinal stenosis identified. CT CHEST, ABDOMEN, PELVIS: Thorax: Chest Wall: Calcified thyroid nodules. Lungs: Dependent atelectasis and/or scarring. Pleura: No effusions or pneumothorax. Brittny/Mediastinum: No lymphadenopathy. Aorta/Pulmonary Arteries: Unremarkable Heart: Normal size. Coronary artery calcifications. Abdomen/Pelvis: Liver: No acute abnormality or suspicious lesions. Biliary: No biliary ductal dilatation. Cholelithiasis. Stomach: No significant focal abnormality. Duodenum: No significant focal abnormality. Pancreas: No significant abnormality. Spleen: No significant abnormality. Adrenal: No suspicious lesions. Kidney/ureter: No hydronephrosis. No renal calculi. Retroperitoneum: No retroperitoneal adenopathy. Vascular: No aneurysm. Bowel: No significant focal abnormality. Peritoneum: No ascites or free air. Bladder: Grossly unremarkable. Reproductive: No adnexal masses. Bones: Status post right hip ORIF for intertrochanteric hip fracture. No acute fractures identified. Remote L3 compression fracture with approximately 30% loss of height anteriorly. Remote appearing T7 compression fracture with up to 90% height loss centrally. Neither has significant bony retropulsion. Mild deformity at the superior endplate of T11 that is also chronic. Other: n/a IMPRESSION: Negative for acute traumatic findings.
--- NOTE | 2023-12-08 08:04 | ER ---
Nurse's Notes [facility] Name: Precious Altamirano Age: 78 yrs Sex: Female : 1945 Arrival Date: 12/08/2023 Time: 06:49 Bed 7 Private MD: Diagnosis: Fall on same level, unspecified;Unspecified injury of head, initial encounter Presentation: 12/07 06:52 Chief complaint: EMS states[facility] Staff reports kd3 that she had an unwitnessed fall this morning after trying to get up from bed. Pt possibly hit her head on her desk that is beside the bed. Pt has a hematoma to the back of the head and is complaining of headache and left rib pain. Pt is holding her left side. employees report that the patient is at her baseline. Pt typically has generalized weakness and is a\T\o x 2 to 3. Pt VSS. Coronavirus screen: Vaccine status: Patient reports receiving the 2nd dose of the covid vaccine. Ebola Screen: No symptoms or risks identified at this time. Initial Sepsis Screen: Does the patient meet any 2 criteria? No. Patient's initial sepsis screen is negative. Does the patient have a suspected source of infection? No. Patient's initial sepsis screen is negative. Risk Assessment: Do you want to hurt yourself or someone else? Patient reports no desire to harm self or others. Onset of symptoms was December 08, 2023. 06:52 Method Of Arrival: EMS: [facility] kd3 06:52 Acuity: JAILENE 3 kd3 Triage Assessment: 06:56 General: Appears uncomfortable, Behavior is calm, cooperative. Pain: Complains of pain kd3 in left parietal area and right lateral posterior chest. Neuro: Level of Consciousness is awake, alert, obeys commands, Oriented to person, place, situation. Cardiovascular: Patient's skin is warm and dry. Respiratory: Airway is patent Trachea midline Respiratory effort is even, unlabored, Respiratory pattern is regular, symmetrical. Historical: - PMHx: 06:56 diabetes mellitus; Hypertensive disorder; Hyperlipidemia; Hypothyroidism; kd3 - Immunization history:: Adult Immunizations up to date. - Infectious Disease History:: Denies. - Social history:: Smoking status: unknown. - Family history:: not pertinent. - Hospitalizations: : No recent hospitalization is reported. Screenin:00 [facility] ED Fall Risk Assessment (Adult) History of falling in the last 3 months, ko1 including since admission Yes- single mechanical fall (1 pt) Confusion or Disorientation Yes (5 pts) Intoxicated or Sedated No (0 pts) Impaired Gait Yes (1 pt) Mobility Assist Device Used Yes (1 pt) Altered Elimination No (0 pt) Score/Fall Risk Level 3 or more points = High Risk Oriented to surroundings, Maintained a safe environment, Educated pt \T\ family on fall prevention, incl call for assistance when getting out of bed, Assessed \T\ reinforced patient's understanding of fall precautions, Provided non-skid footwear, Hourly rounding (assess needs \T\ fall precautionary measures) done, Used ambulatory aids as needed (educated on \T\ assisted with), Used gait belt as appropriate Implemented a Fall Risk Plan of Care, Apply high fall risk patient identification: yellow non skid footwear/ fall signage, Remained w/in arm's length of patient and in sight while toileting, Offered frequent toileting (1:1 observation), Remained with patient while ambulating, Utilized family, sitter, or virtual budget technician as indicated. Abuse screen: Denies threats or abuse. Denies injuries from another. Nutritional screening: No deficits noted. Tuberculosis screening: No symptoms or risk factors identified. Assessment: 07:00 General: Appears uncomfortable, Behavior is calm, cooperative, appropriate for age. ko1 Pain: Complains of pain in right lateral posterior chest and left parietal area. Neuro: No deficits noted. Cardiovascular: No deficits noted. Respiratory: No deficits noted. GI: No deficits noted. : No deficits noted. EENT: No deficits noted. Derm: No deficits noted. Musculoskeletal: Swelling present in left parietal area. Injury Description: Head injury sustained to left parietal area is closed, did not have loss of consciousness, was sustained 30-60 minutes ago. 08:31 Reassessment: patients daughter is calling someone to bring a vehicle the patient can ko1 get into. [facility] does not have transportation today, patient has had a recent hip replacement and is non wt bearing on that leg currently. She cannot sit in a wheelchair for very long so we will let the patient stay in the room/bed until her ride gets here. Vital Signs: 06:52 BP 133 / 73; Pulse 77; Resp 16; Temp 98.2(O); Pulse Ox 100% on R/A; Weight 48.53 kg; kd3 07:49 BP 143 / 75; Pulse 75; Resp 16; Pulse Ox 99% ; ko1 ED Course: 06:52 Patient arrived in ED. kd3 06:52 Lucy Baldwin, RN is Primary Nurse. kd3 06:56 Triage completed. kd3 06:56 Arm band placed on. kd3 06:58 Armaan Mirza MD is Attending Physician. rn 07:00 Patient has correct armband on for positive identification. Placed in gown. Bed in low ko1 position. Call light in reach. Side rails up X2. Provided Education on: call light. Pulse ox on. NIBP on. Door closed. Noise minimized. Lights dimmed. Warm blanket given. Pillow given. 07:00 No provider procedures requiring assistance completed. Patient did not have IV access ko1 during this emergency room visit. 07:16 CT Traumagram (Head C Spine CAP wo con) In Process Unspecified. EDMS Administered Medications: No medications were administered Medication: 07:00 VIS not applicable for this client. ko1 Outcome: 08:03 Discharge ordered by . rn 08:30 Discharged to [facility]. Report called to Jackeline contreras 08:30 Condition: stable 08:30 Discharge instructions given to family, usp, Instructed on discharge instructions, follow up and referral plans. Demonstrated understanding of instructions, follow-up care, 08:38 Discharge ordered by . rn 08:39 Patient left the ED. ko1 Signatures: Dispatcher [employer] EDMS Armaan Mirza MD MD rn Doucette, Kyli, RN FEMI kd3 Nicolasa Gamez RN RN ko1
--- NOTE | 2023-12-08 08:04 | EDPHYS ---
Physician Documentation [facility] Name: Precious Altamirano Age: 78 yrs Sex: Female : 1945 Arrival Date: 12/08/2023 Time: 06:49 Bed 7 Private MD: ED Physician Armaan Mirza HPI: 12/07 07:06 This 78 yrs old Female presents to ER via EMS with complaints of fall. rn 07:06 Onset: The symptoms/episode began/occurred just prior to arrival. Associated injuries: rn The patient sustained injury to the head, injury to the chest. Severity of symptoms: At their worst the symptoms were mild, in the emergency department the symptoms are unchanged. It is unknown whether or not the patient has had similar symptoms in the past. EMS reports [facility] fell at [facility]. Unwitnessed fall. Unknown if LOC. Patient does not recall events but has dementia. Patient reports mild pain to the back of the head but mainly complains of rib pain on the left side. No known blood thinners. No lower extremity injury. Patient thinks got up on her own.. Historical: - PMHx: 06:56 diabetes mellitus; Hypertensive disorder; Hyperlipidemia; Hypothyroidism; kd3 - Immunization history:: Adult Immunizations up to date. - Infectious Disease History:: Denies. - Social history:: Smoking status: unknown. - Family history:: not pertinent. - Hospitalizations: : No recent hospitalization is reported. ROS: 07:06 Constitutional: Negative for fever, chills, and weight loss, Eyes: Negative for injury, rn pain, redness, and discharge, ENT: Negative for injury, pain, and discharge, Neck: Negative for injury, pain, and swelling, Cardiovascular: + for chest pain on left side Respiratory: Negative for shortness of breath, cough, wheezing, and pleuritic chest pain, Abdomen/GI: Negative for abdominal pain, nausea, vomiting, diarrhea, and constipation, Back: Negative for injury and pain, MS/Extremity: Negative for injury and deformity, Neuro: Negative for headache, weakness, numbness, tingling, and seizure, Exam: 07:06 Constitutional: This is a well developed, well nourished patient who is awake, alert, rn and in no acute distress. Head/Face: Normocephalic, atraumatic. Eyes: Pupils equal round and reactive to light, extra-ocular motions intact. ENT: No oral trauma noted Neck: No midline cervical tenderness Chest/axilla: Positive for left lateral rib tenderness without ecchymosis or crepitus Cardiovascular: Regular rate and rhythm. No pulse deficits. Respiratory: No increased work of breathing, no retractions or nasal flaring. Abdomen/GI: Soft, non-tender Back: No spinal tenderness. MS/ Extremity: Pulses equal, no cyanosis. Neurovascular intact. Full, normal range of motion. Equal circumference. Neuro: Awake and alert, GCS 15 Vital Signs: 06:52 BP 133 / 73; Pulse 77; Resp 16; Temp 98.2(O); Pulse Ox 100% on R/A; Weight 48.53 kg; kd3 07:49 BP 143 / 75; Pulse 75; Resp 16; Pulse Ox 99% ; ko1 MDM: 06:58 Patient medically screened. rn 08:02 Differential diagnosis: contusion, fracture, sprain, strain. Data reviewed: vital rn signs, nurses notes, radiologic studies, CT scan, and as a result, I will discharge patient. Counseling: I had a detailed discussion with the patient and/or guardian regarding the historical points, exam findings, and any diagnostic results supporting the discharge/admit diagnosis, radiology results, the need for outpatient follow up, to return to the emergency department if symptoms worsen or persist or if there are any questions or concerns that arise at home. Special discussion: Based on the patient's history, exam and DX evaluation, there is no indication for emergent intervention or inpatient TX. It is understood by the patient/guardian that if the SXs persist or worsen they need to return immediately for re-evaluation. I discussed with the patient/guardian in detail that at this point there is no indication for admission to the hospital. It is understood, however, that if the symptoms persist or worsen the patient needs to return immediately for re-evaluation. ED course: Discharge images. 12/07 07:03 Order name: CT Traumagram (Head C Spine CAP wo con); Complete Time: 08:01 rn Administered Medications: No medications were administered Disposition Summary: 12/08/23 08:38 Discharge Ordered Notes: Location: Home(12/08/23 08:38) rn Problem: new(12/08/23 08:38) rn Symptoms: have improved(12/08/23 08:38) rn Condition: Stable(12/08/23 08:38) rn Diagnosis - Fall on same level, unspecified(12/08/23 08:38) rn - Unspecified injury of head, initial encounter(12/08/23 08:38) rn Followup: rn - With: Private Physician - When: As needed - Reason: Recheck today's complaints, Re-evaluation by your physician Discharge Instructions: - Discharge Summary Sheet rn - Head Injury, Adult rn - Fall Prevention in the Home, Adult rn Forms: - Medication Reconciliation Form rn - Antibiotic mold 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
[2023-12-08 08:54] VITALS: BP 143/75; TEMP 98.2; O2SAT 99
== END 2023-12-08 08:39 | disposition home or self-care (01) ==
LOC: ER 06:49
DX: S09.90XA Unspecified injury of head, initial encounter (principal); W18.30XA Fall on same level, unspecified, initial encounter
CPT/HCPCS: 70450; 71250; 72125; 99283

== ENCOUNTER 2023-12-14 03:01 | Emergency (ER) | payer OTHER ==
--- OUTSIDE RECORDS SUMMARY | 2023-12-14 03:04 | XMS REPORT | Continuity of Care Document ---
Author Name Unknown Address [address] [place] [address] [facility] Address [address] [place] [address] Care Team Providers Care Flour Blender Helper Name Role Phone PCP, PATIENT DOES NOT HAVE A Primary Care Physic horace Unavailable HARSH GARY Attending Clinician HARSH Henry Attending Clinician Harsh Henry MD Attending Clinician [phone] Payers Payer Name Policy Type Policy Number Effective Date Expirati on Date Source [facility] DUAL COMP CHOICE PPO [id number] 2023 00:00:00 Allergies, Adverse Reactions, Alerts Allergy Name Allergy Type Status Severity Reaction(s) Onset Date Inactive Date Treating Clinician Comments Source NO KNOWN ALLERGIE S Drug Class Active [facility] Social History Social Habit Start Date Stop Date Quantity Comments Source Sexual orientation [facility] History of Social function 2023-12-13 00:00:00 2023-12-13 00:00:00 [facility] Tobacco use and exposure 2023-12-13 00:00:00 2023-12-13 00:00:00 Smokeless tobacco non-user [facility] Alcoholic beverage intake 2023-12-13 00:00:00 2023-12-13 00:00:00 Lifetime non-drinker (finding) [facility] Sex assigned at 1945 00:00:00 1945 00:00:00 [facility] Smoking Status Start Date Stop Date Source Never smoked tobacco [facility] Encounters Start Date/Time End Date/Time Encounter Type Admission Type Attending Clinicians Care Facility Care Department Encounter ID Source 2023-12-13 11:04:18 2023-12-13 23:59:00 Outpatient R HARSH GARY CRAIG [facility] [id number] [facility] 2023-12-13 11:04:18 2023-12-13 23:59:00 Hospital Encounter Harsh Gary [facility] [id number] [facility]
--- NOTE | 2023-12-14 04:08 | RAD REPORT ---
EXAM DESCRIPTION: CT - Head C Spine Cap Wo Con - 12/14/2023 3:35 am CLINICAL HISTORY: Trauma, head and neck injury. Chest, abdomen and pelvis pain. TRAUMA COMPARISON: Head C Spine Cap Wo Con dated 12/08/2023 TECHNIQUE: CT head without contrast. CT cervical spine without contrast with coronal and sagittal reformatted images. CT chest, abdomen and pelvis without contrast with coronal and sagittal reformatted images of the spi ne. All CT scans are performed using dose optimization technique as appropriate and may include automated exposure control or mA/KV adjustment according to patient size. FINDINGS: CT HEAD WITHOUT CONTRAST: No intracranial hemorrhage, hydrocephalus or extra-axial fluid collection. No areas of brain edema o r midline shift. Cerebral atrophy. Mild chronic small vessel ischemic changes. The paranasal sinuses and mastoids are clear. The calvarium is intact. CT CERVICAL SPINE WITHOUT CONTRAST: No fracture or subluxation. The prevertebral soft tissues are normal in thickness.Multilevel degener ative changes are present in the spine. CT CHEST, ABDOMEN, PELVIS WITHOUT CONTRAST: NOTE: Lack of contrast is a significant limitation in the assessment of trauma related findings. Spec ifically, solid organ, vascular and bowel evaluation is significantly limited. The lungs are clear.No pneumothorax or pericardial/pleural fluid. Coronary artery calcifications. No evidence of intra-abdominal visceral injury, free fluid or free air is seen within the above detai led limitations. Cholelithiasis. Atherosclerosis. Moderate stool in the colon. No concerning pelvic findings. Status post right hip ORIF for intertrochanteric hip fracture. No acute fractures identified. Remote L3 compression fracture with approximately 30% loss of height anteriorly. Remote appearing T7 compression fracture with up to 90% height loss centrally. Neither has significant bony retropulsion. Mild deformity at the superior endplate of T11 that is also chronic. IMPRESSION: Negative for acute traumatic findings within the above detailed limitations. No signific ant change compared with 12/08/2023.
--- NOTE | 2023-12-14 04:12 | ER ---
Nurse's Notes [facility] Name: Precious Atlamirano Age: 78 yrs Sex: Female : 1945 Arrival Date: 12/14/2023 Time: 03:01 Bed 8 Private MD: Diagnosis: Scalp hematoma, scalp abrasion, fall, closed head injury, chest contusion left side Presentation: 12/13 03:03 Chief complaint: EMS states: Left lateral chest wall pain and contusion to back of head hb after unwitnessed mechanical fall from standing 20 mins ago. Coronavirus screen: At this time, the client does not indicate any symptoms associated with coronavirus-19. Ebola Screen: No symptoms or risks identified at this time. Initial Sepsis Screen: Does the patient meet any 2 criteria? No. Patient's initial sepsis screen is negative. Does the patient have a suspected source of infection? No. Patient's initial sepsis screen is negative. Risk Assessment: Do you want to hurt yourself or someone else? Patient reports no desire to harm self or others. Onset of symptoms was December 14, 2023. 03:03 Method Of Arrival: EMS: [facility] 03:03 Acuity: JAILENE 3 hb Triage Assessment: 03:06 General: Appears in no apparent distress. uncomfortable, Behavior is calm, cooperative. hb Pain: Pain currently is 10 out of 10 on a pain scale. Neuro: Level of Consciousness is awake, alert, obeys commands, Oriented to person, place, situation. Cardiovascular: Patient's skin is warm and dry. Respiratory: Respiratory effort is even, unlabored, Respiratory pattern is regular, symmetrical. Musculoskeletal: Reports left lateral chest wall pain. Historical: - Allergies: 03:04 No Known Allergies; hb - Home Meds: 03:04 cefdinir 300 mg Oral capsule 1 cap 2 times per day for for infection [Active]; Farxiga hb 10 mg Oral tablet daily [Active]; glimepiride 4 mg Oral tablet 1 tab 2 times per day [Active]; hydrochlorothiazide 12.5 mg Oral tablet [Active]; levothyroxine 112 mcg capsule 1 cap daily [Active]; lovastatin 20 mg Oral tablet [Active]; metformin 1 Oral tablet 1 tab 2 times per day [Active]; metronidazole 500 mg Oral tablet 1 tab 3 times per day [Active]; pantoprazole 40 mg Oral tablet 1 tab daily [Active]; pioglitazone 30 mg Oral tablet 1 tab daily [Active]; potassium chloride 20 mEq Oral tablet 1 tab 2 times per day [Active]; prednisone 20 mg Oral tablet 1 tab daily for ulcerative colitis [Active]; rosuvastatin 10 mg Oral tablet 1 tab nightly [Active]; - PMHx: 03:04 diabetes mellitus; Hyperlipidemia; Hypertensive disorder; Hypothyroidism; hb 03:06 Alzheimer's disease; hb - Immunization history:: Adult Immunizations up to date. - Infectious Disease History:: Denies. - Social history:: Smoking status: Patient denies any tobacco usage or history of. Screenin:15 [facility] ED Fall Risk Assessment (Adult) History of falling in the last 3 months, rg5 including since admission No falls in past 3 months (0 pts) Confusion or Disorientation No (0 pts) Intoxicated or Sedated No (0 pts) Impaired Gait Yes (1 pt) Mobility Assist Device Used Yes (1 pt) Altered Elimination No (0 pt) Score/Fall Risk Level 0 - 2 = Low Risk Oriented to surroundings, Maintained a safe environment, Educated pt \T\ family on fall prevention, incl call for assistance when getting out of bed, Assessed \T\ reinforced patient's understanding of fall precautions, Hourly rounding (assess needs \T\ fall precautionary measures) done. Abuse screen: Denies threats or abuse. Nutritional screening: No deficits noted. Tuberculosis screening: No symptoms or risk factors identified. Vital Signs: 03:03 BP 135 / 66; Pulse 64; Resp 18; Temp 98.2(O); Pulse Ox 100% on R/A; Weight 45.36 kg; hb Height 5 ft. 3 in. ; Pain 10/10; 04:00 BP 149 / 70; Pulse 87; Resp 17; Pulse Ox 100% on R/A; rg5 03:03 Body Mass Index 17.71 (45.36 kg, 160.02 cm) hb 03:03 Pain Scale: Adult hb ED Course: 03:03 Patient arrived in ED. hb 03:03 Patricia Allen MD is Attending Physician. sp3 03:04 Triage completed. hb 03:07 Arm band placed on. hb 03:37 CT Traumagram (Head C Spine CAP wo con) In Process Unspecified. EDMS 04:15 Bed in low position. Call light in reach. Side rails up X2. Adult w/ patient. Provided rg5 Education on: post ER care. 04:15 No provider procedures requiring assistance completed. Patient did not have IV access rg5 during this emergency room visit. Administered Medications: No medications were administered Medication: 04:29 VIS not applicable for this client. rg5 Outcome: 04:12 Discharge ordered by . frank 04:15 Discharged to home via wheelchair, rg5 04:15 Condition: stable 04:15 Discharge instructions given to patient, family, 04:32 Patient left the ED. rg5 Signatures: Dispatcher [employer] EDMS Amanda Bella, RN RN Patricia Reed MD MD sp3 Santhosh Davila RN RN rg5
--- NOTE | 2023-12-14 04:13 | EDPHYS ---
Physician Documentation [facility] Name: Precious Altamirano Age: 78 yrs Sex: Female : 1945 Arrival Date: 12/14/2023 Time: 03:01 Bed 8 Private MD: ED Physician Patricia Allen HPI: 12/13 03:04 This 78 yrs old Female presents to ER via Unassigned with complaints of Fall Injury. sp3 03:04 78-year-old female with history of dementia, Alzheimer's, frequent falls now presents sp3 [facility] ground-level [facility] where patient was found on floor. Patient is at her baseline neurological status as per EMS as reported by [facility]. Mild amount of bleeding to the posterior occiput noted. Also pain to the left side of the ribs. Remainder of history, physical and ROS limited secondary to dementia.. Historical: - Allergies: 03:04 No Known Allergies; hb - Home Meds: 03:04 cefdinir 300 mg Oral capsule 1 cap 2 times per day for for infection [Active]; Farxiga hb 10 mg Oral tablet daily [Active]; glimepiride 4 mg Oral tablet 1 tab 2 times per day [Active]; hydrochlorothiazide 12.5 mg Oral tablet [Active]; levothyroxine 112 mcg capsule 1 cap daily [Active]; lovastatin 20 mg Oral tablet [Active]; metformin 1 Oral tablet 1 tab 2 times per day [Active]; metronidazole 500 mg Oral tablet 1 tab 3 times per day [Active]; pantoprazole 40 mg Oral tablet 1 tab daily [Active]; pioglitazone 30 mg Oral tablet 1 tab daily [Active]; potassium chloride 20 mEq Oral tablet 1 tab 2 times per day [Active]; prednisone 20 mg Oral tablet 1 tab daily for ulcerative colitis [Active]; rosuvastatin 10 mg Oral tablet 1 tab nightly [Active]; - PMHx: 03:04 diabetes mellitus; Hyperlipidemia; Hypertensive disorder; Hypothyroidism; hb 03:06 Alzheimer's disease; hb - Immunization history:: Adult Immunizations up to date. - Infectious Disease History:: Denies. - Social history:: Smoking status: Patient denies any tobacco usage or history of. ROS: 03:05 Unable to obtain ROS due to baseline dementia, sp3 Exam: 03:05 Constitutional: This is a well developed, well nourished patient who is awake, alert, sp3 and in no acute distress. Eyes: Pupils equal round and reactive to light, extra-ocular motions intact. Lids and lashes normal. Conjunctiva and sclera are non-icteric and not injected. Cornea within normal limits. Periorbital areas with no swelling, redness, or edema. ENT: Nares patent. No nasal discharge, no septal abnormalities noted. External auditory canals are clear. Oropharynx with no redness, swelling, or masses, exudates, or evidence of obstruction, uvula midline. Mucous membranes moist. Neck: Trachea midline, no thyromegaly or masses palpated, and no cervical lymphadenopathy. Supple, full range of motion without nuchal rigidity, or vertebral point tenderness. No Meningismus. Chest/axilla: Normal chest wall appearance and motion. Nontender with no deformity. No lesions are appreciated. Cardiovascular: Regular rate and rhythm with a normal S1 and S2. No gallops, murmurs, or rubs. Normal PMI, no JVD. No pulse deficits. Respiratory: Lungs have equal breath sounds bilaterally, clear to auscultation and percussion. No rales, rhonchi or wheezes noted. No increased work of breathing, no retractions or nasal flaring. Abdomen/GI: Soft, non-tender, with normal bowel sounds. No distension or tympany. No guarding or rebound. No evidence of tenderness throughout. Back: No spinal tenderness. No costovertebral tenderness. Full range of motion. Skin: Warm, dry with normal turgor. Normal color with no rashes, no lesions, and no evidence of cellulitis. MS/ Extremity: Pulses equal, no cyanosis. Neurovascular intact. Full, normal range of motion. Psych: Awake, alert, with orientation to person, place and time. Behavior, mood, and affect are within normal limits. 03:05 Head/face: Abrasion and hematoma to posterior occiput noted without laceration.. 03:06 Chest/axilla: Pain to palpation left sided ribs. Breath sounds are equal bilaterally.. sp3 Vital Signs: 03:03 BP 135 / 66; Pulse 64; Resp 18; Temp 98.2(O); Pulse Ox 100% on R/A; Weight 45.36 kg; hb Height 5 ft. 3 in. ; Pain 10/10; 04:00 BP 149 / 70; Pulse 87; Resp 17; Pulse Ox 100% on R/A; rg5 03:03 Body Mass Index 17.71 (45.36 kg, 160.02 cm) hb 03:03 Pain Scale: Adult hb MDM: 03:03 Patient medically screened. sp3 03:06 Data reviewed: vital signs, nurses notes, EMS record, old medical records, radiologic sp3 studies. ED course: 78-year-old female with fall. Will obtain CT scan of the head, C-spine, chest abdomen pelvis and a full noncontrast trauma gram. Vital signs are normal. Patient is alert however not oriented as per her baseline dementia. [facility] if no significant findings that cannot be managed outpatient.. 04:11 ED course: CT scan's are negative as per radiology read. We will safely discharge sp3 patient home at this time. Wound care to the scalp prior to discharge.. 12/13 03:03 Order name: CT Traumagram (Head C Spine CAP wo con); Complete Time: 04:10 sp3 12/13 03:03 Order name: NPO; Complete Time: 03:08 sp3 Administered Medications: No medications were administered Disposition Summary: 12/14/23 04:12 Discharge Ordered Notes: Location: Home sp3 Condition: Stable sp3 Diagnosis - Scalp hematoma, scalp abrasion, fall, closed head injury, chest contusion left side sp3 Followup: sp3 - With: Private Physician - When: Upon discharge from the Emergency Department - Reason: Continuance of care Discharge Instructions: - Discharge Summary Sheet sp3 - Fall Prevention in Hospitals, Adult sp3 Forms: - Medication Reconciliation Form sp3 - Antibiotic Education sp3 - Prescription Opioid Use sp3 - Patient Portal Instructions sp3 - Leadership Thank You Letter sp3 Signatures: Dispatcher [employer] Amanda Vizcarra RN RN hb Patel, Setul, MD MD sp3
[2023-12-14 06:01] VITALS: BP 149/70; TEMP 98.2; O2SAT 100
== END 2023-12-14 04:32 | disposition home or self-care (01) ==
LOC: ER 03:01
DX: S00.01XA Abrasion of scalp, initial encounter (principal); S20.212A Contusion of left front wall of thorax, initial encounter; W18.30XA Fall on same level, unspecified, initial encounter; G30.9 Alzheimer's disease, unspecified; F02.80 Dementia in other diseases classified elsewhere, unspecified severity, without behavioral disturbance, psychotic disturbance, mood disturbance, and anxiety
CPT/HCPCS: 70450; 71250; 72125; 99283

== ENCOUNTER 2024-01-14 14:23 | Inpatient (IN) | payer OTHER ==
--- OUTSIDE RECORDS SUMMARY | 2024-01-14 14:25 | XMS REPORT | Continuity of Care Document ---
Author Name Unknown Address [address] [facility] [address] [place] [address] [facility] thconnect Address [address] [facility] [place] [address] Care Team Providers Care Terra Cotta [employer] Maker Name Role Phone MARCI PRESTON Primary Care Physician Unavailab DALTON Aparicio Attending Clinician Unavailable DALTON GUEVARA Attending Clinician Unavailable Harsh Gary MD Attending Clinician [phone] HARSH GARY Attending Clinician HARSH Damon Attending Clinician UnavailDALTON Rodriguez Admitting Clinician Unavailable Payers Payer Name Policy Type Policy Number Effective Date Expirati on Date Source [facility] DUAL COMP CHOICE PPO DSNP [id number] 2023 00:00:00 Allergies, Adverse Reactions, Alerts Allergy Name Allergy Type Status Severity Reaction(s) Onset Date Inactive Date Treating Clinician Comments Source NO KNOWN ALLERGIE S Drug Class Active [facility] Social History Social Habit Start Date Stop Date Quantity Comments Source [facility] Alcoholic beverage intake 2023-12-23 00:00:00 2023-12-23 00:00:00 Lifetime non-drinker (finding) [facility] History of Social function 2023-12-13 00:00:00 2023-12-13 00:00:00 [facility] Tobacco use and exposure 2023-12-13 00:00:00 2023-12-13 00:00:00 Smokeless tobacco non-user [facility] Sex assigned at 1945 00:00:00 1945 00:00:00 [facility] Smoking Status Start Date Stop Date Source Never smoked tobacco [facility] Vital Signs Vital Name Observation Time Observation Value Comments Fede chapman Systolic blood pressure 2023-12-23 15:00:00 132 mm[Hg] [facility] Diastolic blood pressure 2023-12-23 15:00:00 83 mm[Hg] [facility] Heart rate 2023-12-23 15:00:00 92 /min [facility] Respiratory rate 2023-12-23 15:00:00 14 /min [facility] Oxygen saturation in Arterial blood by Pulse oximetry 2023-12-23 15:00:00 98 /min [facility] Body temperature 2023-12-23 12:50:[address] [facility] Body height 2023-12-23 12:50:00 162.6 cm [facility] Body weight 2023-12-23 12:50:00 44.453 kg [facility] BMI 2023-12-23 12:50:00 16.82 kg/m2 [facility] Systolic blood pressure 2023-12-13 14:22:00 115 mm[Hg] [facility] Diastolic blood pressure 2023-12-13 14:22:00 71 mm[Hg] [facility] Heart rate 2023-12-13 14:22:00 86 /min [facility] Respiratory rate 2023-12-13 14:22:00 18 /min [facility] Body height 2023-12-13 14:22:00 167.6 cm [facility] Body weight 2023-12-13 14:22:00 56.246 kg [facility] BMI 2023-12-13 14:22:00 20.01 kg/m2 [facility] Procedures Procedure Date / Time Performed Performing Clinicia n Source URINALYSIS 2023-12-23 14:23:00 Dalton Guevara [facility] XR HAND 3+ VW RIGHT 2023-12-23 13:25:[address] [facility] TROPONIN I 2023-12-23 13:10:00 Dalton Guevara [facility] COMP. METABOLIC PANEL (11299) 2023-12-23 13:10:[address] [facility] CBC WITH DIFF 2023-12-23 13:10:00 Dalton Guevara [facility] N-TERMINAL PRO-BNP 2023-12-23 13:10:[address] [facility] Encounters Start Date/Time End Date/Time Encounter Type Admission Type Attending [facility] Care Facility Care Department Encounter ID Source 2023-12-23 07:48:00 2023-12-23 11:01:00 Emergency X DALTON GUEVARA [facility] ERT [id number] [facility] 2023-12-23 07:48:00 2023-12-23 11:01:00 Emergency Dalton Guevara [facility] [id number] [facility] 2023-12-20 00:00:00 2023-12-20 11:14:02 Letter (Out) [facility] [id number] [facility] 2023-12-13 11:04:18 2023-12-13 23:59:00 Hospital Encounter Harsh Gary [facility] [id number] [facility] 2023-12-13 09:00:00 2023-12-13 15:40:21 Office Visit Harsh Gary [facility] [id number] [facility] 2023-12-13 09:00:00 2023-12-13 15:40:21 Outpatient R HARSH GARY CRAIG [facility] [id number] [facility] Results Test Description Test Time Test Comments Results Result Comments Source XR HAND 3+ VW RIGHT 14:11:22 EXAM: XR HAND 3+ VW RIGHT HISTORY: hand pain COMPARISON: None available FINDINGS: Imaging of the hand demonstrates osteopenia. TFC chondrocalcinosis ispresent. Volar plate fixation hardware secures the distal radius with nohardware complication. Moderate joint space narrowing, subchondralsclerosis and marginal osteophyte formation involve the STT, thumb CMC andthumb IP joints. Diffuse interphalangeal joint space loss withosteophytosis is seen throughout the second through fifth digits. There issubchondral bone plate collapse and erosion seen at the index and smallfinger DIP joints resulting in gullwing deformities. No acute bonyabnormality is demonstrated. [facility] Notes Date/Time Note Provider Source 2023-12-23 10:44:11 Discharge instructions given to daughter of patient. No further questions. Daughter will take patient back to [facility]. Tanja Stubbs RN [facility] 2023-12-23 07:48:47 Patient to ED for a fall from [facility]. Arrived via EMS A&Ox1. Complaining of right arm pain. EMS reports she has had multiple falls recently. Eliceo Medrano RN [facility]
[2024-01-14] MEDS ORDERED: CEFTRIAXONE 1000 MG/VIAL ONE (15:06)
[2024-01-14] MEDS ORDERED: NA CHLORIDE 0.9% 500 ML ONE (15:07)
[2024-01-14 15:08] LABS: Absolute Basophils 0.1 K/uL (0-0.5); Absolute Lymphocytes (CBC) 1.6 K/uL (0.7-4.9); Absolute Monocytes 0.6 K/uL (0.1-1.3); Absolute Neutrophil 8.4 K/uL (1.8-8.0); Basophils % 0.7 % (0-1.3); Eosinophils % 0.1 % (0-4.4); Hematocrit 39.6 % (36.0-45.0); Hemoglobin 12.2 g/dL (12.0-15.0); Lymphocytes % 14.6 % (15.3-44.8); MCH 29.8 pg (27.0-35.0); MCHC 30.7 g/dL (32.0-36.0); MCV 96.9 fL (80-100); Monocytes % 5.7 % (3.3-12.3); Neutrophils % 78.9 % (41.7-73.7); Nucleated Red Blood Cells % 0.1 % (0-0); Platelets 469 thou/uL (152-406); RBC Red Blood Cell Count 4.09 M/uL (3.86-4.86); Red Cell Distribution Width 16.3 % (12.1-15.2)
[2024-01-14 15:23] LABS: PT Prothrombin Time 10.9 SECONDS (9.4-12.5); Protime INR 0.97
--- NOTE | 2024-01-14 15:37 | RAD REPORT ---
EXAM DESCRIPTION: CT - Head C Spine Cap Wo Con - 01/14/2024 3:06 pm CLINICAL HISTORY: Head and neck injury with chest and abdominal pain status post fall TECHNIQUE: Computed axial tomography of head, neck, chest, abdomen and pelvis obtained. IV and oral contrast not requested. Coronal and sagittal reconstruction performed. All CT scans are performed using dose optimization technique as appropriate and may include automated exposure control or mA/KV adjustment according to patient size. COMPARISON: December 2023 FINDINGS: An intracranial bleed is not seen. The ventricles are normal in caliber. An extra-axial fluid collection is not noted. Fluid within the sinuses/mastoids is not seen. A cervical fracture is not seen. No dislocation is noted. Spondylosis cervical spine results mild to moderate central spinal stenosis The evaluation of mediastinum, anjel, vessels, solid organs and bowel are limited secondary to the lac k of contrast administration. Images are degraded by patient motion artifact A mediastinal hematoma is not noted. A pleural effusion is not seen. A lung contusion is not present. The liver,spleen, pancreas, adrenals,kidneys and bladder do not demonstrate an acute traumatic injury Cholelithiasis. Gallbladder wall does not appear thickened. Development of an acute compression fracture T12 vertebral body estimated 20% compression. Additional old thoracic and lumbar vertebral body compression fractures Compression screw and intramedullary rods placed into the right femur affixing a fracture IMPRESSION: No acute intracranial abnormality is seen. A cervical fracture is not visualized. If the patient continues to have symptoms to suggest intracran ial/spinal cord pathology MRI be recommended Mild acute compression fracture T12 vertebral body Images are degraded by patient motion artifact
[2024-01-14 15:38] LABS: ALT/SGPT 17 U/L (13-56); Albumin 3.8 g/dL (3.4-5.0); Albumin/Globulin Ratio 0.8 (1.1-1.8); Alkaline Phosphatase 133 U/L (45-117); Anion Gap 31.4 mEq/L (5.0-15.0); Bilirubin Total 0.4 mg/dL (0.2-1.0); Globulin 4.9 g/dL (2.3-3.5); Glomerular Filtration Rate 41 ml/min (=/>90); Lipase 40 U/L (13-75); Magnesium 2.2 mg/dL (1.6-2.4); NT PRO-BNP 804 pg/mL (<450); Potassium 4.4 mEq/L (3.5-5.1); Protein, Total 8.7 g/dL (6.4-8.2); Sodium Level 136 mEq/L (136-145); Troponin High Sensitivity 9.7 pg/mL (<58.9)
[2024-01-14 16:02] LABS: SARS-CoV-2 Antigen CONTROL BLUE LINE VIS/BG OK; SARS-CoV-2 Antigen Rapid Res Negative (Negative)
--- NOTE | 2024-01-14 16:26 | RAD REPORT ---
EXAM DESCRIPTION: Nguyễn Single View01/14/2024 3:53 pm CLINICAL HISTORY: cough COMPARISON: October 2023 FINDINGS: Lungs are moderately hyperaerated consistent COPD The lungs appear clear of acute infiltrate. The heart is normal size IMPRESSION: No acute abnormalities displayed
[2024-01-14 16:52] LABS: Sqamous Epithelial <5 /HPF (None Seen); Urine Bacteria <20 /HPF (<20); Urine Microscopic Reflex YN ORDER UMIC; Urine Mucus 1+ /HPF (None Seen); Urine RBC >50 /HPF (None Seen); Urine WBC None Seen /HPF (<5); Urine Yeast (Budding) Many /HPF (None Seen)
[2024-01-14 16:53] LABS: Specific Gravity 1.024 (1.005-1.030); Urine Bilirubin NEGATIVE (Negative); Urine Blood 2+ (Negative); Urine Clarity Extremely Turbid (Clear); Urine Color Light-Yellow (Yellow); Urine Glucose 4+ (Over) (Negative); Urine Ketones 2+ (Negative); Urine Nitrite NEGATIVE (Negative); Urine Protein 2+ (Negative); Urine Urobilinogen Normal (Normal); Urine pH 5.5 (5.0-7.0)
[2024-01-14 17:19] LABS: Glucose Level 495 mg/dL (74-106)
[2024-01-14 17:20] LABS: BUN Blood Urea Nitrogen 29 mg/dL (7-18)
[2024-01-14 17:22] LABS: AST/SGOT < 10 U/L (15-37); Bicarbonate < 8 mEq/L (21-32); Bilirubin Direct < 0.2 mg/dL (0-0.2); Bilirubin Indirect, Calculated 0.2 mg/dL (0.2-0.8)
[2024-01-14] MEDS ORDERED: NA CHLORIDE 0.9% 2,000 ML ONE (17:38)
[2024-01-14] MEDS ORDERED: FAMOTIDINE 20 MG/2 ML VIAL IV ONE (17:38)
[2024-01-14 17:42] LABS: Arterial Blood Carboxyhemoglob 0.7 % (0-1.5); Blood Gas Oxyhemoglobin 93.6 % (94-97); Blood Gas THB 11.4 g/dl (12-18); Blood O2 Saturation 96.2 % (92-98.5)
[2024-01-14] MEDS ORDERED: SODIUM BICARB 50 MEQ/50ML VIAL ONE (17:55)
[2024-01-14] MEDS ORDERED: INSULIN REGULAR (HUMAN) 100 UNIT/ML ONE (18:04)
[2024-01-14] MEDS ORDERED: NA CHLORIDE 0.9% 1,000 ML ONE (18:06)
[2024-01-14] MEDS ORDERED: NA CHLORIDE 0.9% 100 ML ONE (18:06)
--- NOTE | 2024-01-14 18:10 | ER ---
Nurse's Notes [facility] Name: Precious Altamirano Age: 78 yrs Sex: Female : 1945 Arrival Date: 01/14/2024 Time: 14:23 Bed 8 Private MD: Diagnosis: Diabetes mellitus due to underlying condition with ketoacidosis;Type 1 diabetes mellitus with ketoacidosis;Altered mental status, unspecified;Severe sepsis without septic shock;History of falling;Wedge compression fracture of unspecified thoracic vertebra-T12 MILD ACUTE Presentation: 01/13 14:45 Chief complaint: EMS states: patient started complaining of back pain last night, worse ko1 this morning, seems altered as well. Coronavirus screen: At this time, the client does not indicate any symptoms associated with coronavirus-19. Ebola Screen: No symptoms or risks identified at this time. Initial Sepsis Screen: Does the patient meet any 2 criteria? No. Patient's initial sepsis screen is negative. Does the patient have a suspected source of infection? No. Patient's initial sepsis screen is negative. Risk Assessment: Do you want to hurt yourself or someone else? Patient reports no desire to harm self or others. Onset of symptoms was January 14, 2024. Care prior to arrival: IV initiated. 20 GA, in the right forearm, Glucose check: 355 Oxygen administered. Transition of care: patient was received from another setting of care (long-term care facility), [facility], [place]. 14:45 Method Of Arrival: EMS: [facility] ko1 14:45 Acuity: JAILENE 2 ko1 Triage Assessment: 15:11 General: Appears ill, Behavior is drowsy. Pain: Complains of pain in back. EENT: No ko1 deficits noted. Neuro: Level of Consciousness is lethargic, Facial symmetry appears normal, Pupils are Pupil Size: 2mm. Cardiovascular: No deficits noted. Respiratory: Respiratory effort is labored, Respiratory pattern is regular, symmetrical. GI: No deficits noted. : No deficits noted. Derm: Bruising that is green, yellow, on right side of forehead, right shoulder and right chest area. Musculoskeletal: Circulation, motion, and sensation intact. Range of motion: intact in all extremities. Historical: - Allergies: 15:11 No Known Allergies; ko1 - PMHx: 15:11 Alzheimer's disease; diabetes mellitus; Hyperlipidemia; Hypertensive disorder; ko1 Hypothyroidism; - PSHx: 15:11 Unable to Obtain; ko1 - Immunization history:: Adult Immunizations up to date. - Infectious Disease History:: Denies. - Social history:: Smoking status: Patient denies any tobacco usage or history of. Screenin:16 [facility] ED Fall Risk Assessment (Adult) History of falling in the last 3 months, ko1 including since admission Yes- single mechanical fall (1 pt) Confusion or Disorientation Yes (5 pts) Intoxicated or Sedated No (0 pts) Impaired Gait Yes (1 pt) Mobility Assist Device Used Yes (1 pt) Altered Elimination Yes (1 pt) Score/Fall Risk Level 3 or more points = High Risk Oriented to surroundings, Maintained a safe environment, Educated pt \T\ family on fall prevention, incl call for assistance when getting out of bed, Assessed \T\ reinforced patient's understanding of fall precautions, Provided non-skid footwear, Hourly rounding (assess needs \T\ fall precautionary measures) done, Used ambulatory aids as needed (educated on \T\ assisted with), Used gait belt as appropriate Implemented a Fall Risk Plan of Care, Apply high fall risk patient identification: yellow non skid footwear/ fall signage, Remained w/in arm's length of patient and in sight while toileting, Offered frequent toileting (1:1 observation), Remained with patient while ambulating, Utilized family, sitter, or virtual ethics officer as indicated. Abuse screen: Denies threats or abuse. Denies injuries from another. Nutritional screening: No deficits noted. Tuberculosis screening: No symptoms or risk factors identified. Assessment: 15:16 Reassessment: see triage note. Neuro: Level of Consciousness is lethargic, hx of ko1 alzheimers. Vital Signs: 14:45 BP 110 / 58; Pulse 108; Resp 20; Temp 97; Pulse Ox 100% on R/A; ko1 16:38 BP 115 / 55; Pulse 102; Resp 18; Pulse Ox 100% on R/A; ko1 17:00 BP 116 / 54; Pulse 100; Resp 19; Pulse Ox 100% on R/A; dd2 17:30 BP 113 / 54; Pulse 99; Resp 20; Pulse Ox 100% on R/A; dd2 18:00 BP 104 / 48 (/lg); Pulse 97; Resp 18; Pulse Ox 100% ; dd2 18:30 BP 95 / 45; Pulse 91; Resp 20; Pulse Ox 100% on R/A; dd2 19:33 BP 106 / 53; Pulse 99; Resp 20; Temp 98.4; Pulse Ox 100% ; me1 [place] Coma Score: 18:03 Eye Response: to pain(2). Motor Response: withdraws from pain(4). Verbal Response: paco confused(4). Total: 10. ED Course: 14:43 Patient arrived in ED. ko1 14:44 Wilder Veronica MD is Attending Physician. paco 14:45 Initial lab(s) drawn, by ED staff, sent to lab. First set of blood cultures drawn by ED ko1 staff, Second set of blood cultures drawn by ED staff, EKG done, by ED staff, reviewed by Wilder Veronica MD COVID swab sent to lab. Maintain EMS IV. Dressing intact. Site clean \T\ dry. Gauge \T\ site: 20g right FA. Flushed right forearm with 5 ml normal saline. Inserted saline lock: 20 gauge in right antecubital area, using aseptic technique. Blood collected. Flushed with 10 mL NS. 14:46 Yeimy Roldan, RN is Primary Nurse. nj1 15:04 Basic Metabolic Panel Sent. ko1 15:04 CBC with Diff Sent. ko1 15:04 LFT's Sent. ko1 15:05 Magnesium Sent. ko1 15:05 NT PRO-BNP Sent. ko1 15:05 PT-INR Sent. ko1 15:05 Troponin HS Sent. ko1 15:05 Lipase Sent. ko1 15:08 CT Traumagram (Head C Spine CAP wo con) In Process Unspecified. EDMS 15:11 Triage completed. ko1 15:11 Arm band placed on right wrist. Patient placed in an exam room, on a stretcher, on ko1 cardiac surgeon, on pulse oximetry, Patient notified of wait time. 15:16 Patient has correct armband on for positive identification. Fall risk band placed. ko1 Placed in gown. Bed in low position. Call light in reach. Side rails up X2. Provided Education on: call light, labs. Client placed on continuous cardiac and pulse oximetry monitoring. NIBP monitoring applied. school lunch monitor on. Door closed. Noise minimized. Lights dimmed. Warm blanket given. Pillow given. 15:55 XRAY Chest (1 view) In Process Unspecified. EDMS 16:19 Nicolasa Gamez, RN is Primary Nurse. ko1 16:35 No provider procedures requiring assistance completed. Urine collected: straight cath ko1 specimen, cloudy, Amount Returned: 150mL. 17:41 ABG Sent. ko1 18:05 Gigi Sebastain MD is Hospitalizing Provider. [facility] 18:21 [place]re cath inserted, using sterile technique, 16 Fr., by pr, balloon inflated, to dd2 gravity drainage. 19:35 Urinalysis w/ reflexes Sent. me1 19:36 Patient admitted, IV remains in place. me1 Administered Medications: 16:13 Drug: NS 0.9% IV 500 ml IV at bolus once Route: IV; Rate: bolus; Site: right ko1 antecubital; 17:00 Follow up: Response: No adverse reaction; IV Status: Completed infusion; IV Intake: ko1 500ml 16:13 Drug: Rocephin IV 1 grams IV at per protocol once; Given slow IV push per pharmacy ko1 instructions Route: IV; Rate: per protocol; Site: right antecubital; 16:30 Follow up: Response: No adverse reaction; IV Status: Completed infusion; IV Intake: [id number] 17:42 Drug: NS 0.9% IV 1000 ml IV at 1 bolus Per protocol; 1000 mL bolus Route: IV; Rate: 1 ko1 bolus; Site: right antecubital; 18:18 Follow up: Response: No adverse reaction; IV Status: Completed infusion; IV Intake: ko1 1000ml 17:42 Drug: Famotidine IVP 20 mg IVP once; dilute with 10 mL 0.9% NaCl; give over 2 minutes ko1 Route: IVP; Site: right antecubital; 17:57 Follow up: Response: No adverse reaction ko1 17:43 Drug: NS 0.9% IV 1000 ml IV at 1 bolus Per protocol; 1000 mL bolus Route: IV; Rate: 1 ko1 bolus; Site: right antecubital; 18:19 Follow up: Response: No adverse reaction; IV Status: Completed infusion; IV Intake: ko1 1000ml 18:01 Drug: Sodium Bicarbonate IVP 1 amp IVP once; (50 mL); equals 50 mEq Route: IVP; Site: ko1 left antecubital; 18:16 Follow up: Response: No adverse reaction ko1 18:11 Drug: Insulin Drip - (Insulin Regular Human IVP 100 units, NS 0.9% IV 100 ml) IV at 5 ko1 ml/hr continuous; Standard concentration 1unit/ml; Dose for DKA is 0.1 units/kg/hr {Co-Signature: dd2 (FAN BONNER RN).} Route: IV; Rate: 5 ml/hr; Site: right antecubital; 19:27 Follow up: IV Status: Infusion continued upon transfer me1 18:35 Drug: NS 0.9% IV 1000 ml IV at 125 ml/hr continuous Route: IV; Rate: 125 ml/hr; Site: ko1 right antecubital; 19:26 Follow up: IV Status: Infusion continued upon admission me1 Medication: 16:35 VIS not applicable for this client. ko1 Intake: 16:30 IV: 10ml; Total: 10ml. ko1 17:00 IV: 500ml; Total: 510ml. ko1 18:18 IV: 1000ml; Total: 1510ml. ko1 18:19 IV: 1000ml; Total: 2510ml. ko1 Outcome: 18:09 Decision to Hospitalize by Provider. paco 19:35 Admitted to ICU accompanied by nurse, via stretcher, room -3, on monitor, with chart, pr1 Report called to FEMI Lehman 19:35 Condition: stable 19:35 Instructed on the need for admit, 20:09 [place] [facility] [place] Signatures: Dispatcher [employer] Wilder Shipley MD MD cha Oliver, Kathy, RN RN ko1 Yeimy Roldan RN RN nj1 Eddleman, Michelle, RN RN me1 FAN BONNER RN RN dd2 FAN BONNER RN dd2
--- NOTE | 2024-01-14 18:10 | EDPHYS ---
Physician Documentation [facility] Name: Precious Altamirano Age: 78 yrs Sex: Female : 1945 Arrival Date: 01/14/2024 Time: 14:23 Bed 8 Private MD: ED Physician Wilder Veronica HPI: 01/13 17:57 This 78 yrs old Female presents to ER via EMS with complaints of Back Pain, paco Altered Mental Status. 17:57 The patient presents with pain that is chronic. paco Historical: - Allergies: 15:11 No Known Allergies; ko1 - PMHx: 15:11 Alzheimer's disease; diabetes mellitus; Hyperlipidemia; Hypertensive disorder; ko1 Hypothyroidism; - PSHx: 15:11 Unable to Obtain; ko1 - Immunization history:: Adult Immunizations up to date. - Infectious Disease History:: Denies. - Social history:: Smoking status: Patient denies any tobacco usage or history of. ROS: 17:58 Constitutional: Positive for fatigue, malaise, poor PO intake, paco 17:58 Cardiovascular: Positive for palpitations, 17:58 Abdomen/GI: Positive for nausea and vomiting, 17:58 Unable to obtain ROS due to baseline dementia, obtunded state, Exam: 17:58 Constitutional: The patient appears in obvious distress, moderately distressed, paco 17:58 ENT: Mouth: Oral mucosa: dry, Gums: normal with healthy appearance, PARCHED, Posterior pharynx: no acute changes, Airway: normal, no evidence of obstruction, Tonsils: are normal in appearance, peritonsillar mass, is not appreciated, 17:58 Cardiovascular: Rate: tachycardic, actual rate is 110 bpm, Rhythm: regular, Pulses: Pulses are 4+ in bilateral radial, brachial, femoral, popliteal, posterior tibial and and dorsalis pedis arteries.. Heart sounds: normal, Edema: is not appreciated, JVD: is not appreciated, 17:58 ECG was reviewed by the Attending Physician. 18:03 Constitutional: This is a well developed, well nourished patient who is awake, alert, paco and in no acute distress. 18:03 Musculoskeletal/extremity: Circulation is intact in all extremities. Compartment Syndrome exam of affected extremity: is normal. Weight bearing: is unable to bear weight, DVT Exam: No signs of deep vein thrombosis. no pain, no swelling, no tenderness, negative Homans' sign noted on exam, no appreciated bluish discoloration, no erythema, no increased warmth, 18:03 Neuro: Orientation: unable to test, Mentation: confused, responsive to pain, unable to test, Memory: unable to test, Cranial nerves: unable to test, Cerebellar function: unable to test, Motor: moves all fours, unable to test, Sensation: unable to test, Gait: not tested. seizure activity, is not displayed by the patient, Vital Signs: 14:45 BP 110 / 58; Pulse 108; Resp 20; Temp 97; Pulse Ox 100% on R/A; ko1 16:38 BP 115 / 55; Pulse 102; Resp 18; Pulse Ox 100% on R/A; ko1 17:00 BP 116 / 54; Pulse 100; Resp 19; Pulse Ox 100% on R/A; dd2 17:30 BP 113 / 54; Pulse 99; Resp 20; Pulse Ox 100% on R/A; dd2 18:00 BP 104 / 48 (/lg); Pulse 97; Resp 18; Pulse Ox 100% ; dd2 18:30 BP 95 / 45; Pulse 91; Resp 20; Pulse Ox 100% on R/A; dd2 19:33 BP 106 / 53; Pulse 99; Resp 20; Temp 98.4; Pulse Ox 100% ; me1 [place] Coma Score: 18:03 Eye Response: to pain(2). Motor Response: withdraws from pain(4). Verbal Response: paco confused(4). Total: 10. MDM: 14:44 Patient medically screened. paco 18:00 Differential diagnosis: Basilar Pneumonia chronic back pain, Fatigue Hydronephrosis paco Osteoarthritis Pyelonephritis Renal Infarction ruptured disc, spinal injury, sprain, Ureterolithiasis vertebral fracture. Differential Diagnosis altered mental status, sepsis, flu. Differential Diagnosis: CVA, electrolyte abnormality, hypoglycemia, intracranial bleed, meningitis, overdose, pneumonia, seizure, sepsis, TIA, UTI, volume depletion. Data reviewed: vital signs, nurses notes, EMS record, lab test result(s), EKG, radiologic studies, CT scan, plain films. Consideration of Admission/Observation Patient was admitted/placed on observation. Escalation of care including admission/observation considered. I considered the following discharge prescriptions or medication management in the emergency department Medications were administered in the Emergency Department. See MAR. Independent interpretation of the following test(s) in the Emergency Department EKG: See my EKG interpretation above. Test considered but Not performed: Ultrasound NO ABD USG. Historians other than the Patient: EMS: EMS WELL INFORMED. Care significantly affected by the following chronic conditions: Diabetes, Hypertension, ALZHEIMERS, HYPERLIPID, HYPOTHYROID. Counseling: I had a detailed discussion with the patient and/or guardian regarding the historical points, exam findings, and any diagnostic results supporting the discharge/admit diagnosis, lab results, radiology results, the need for further work-up and treatment in the hospital. 01/13 14:46 Order name: Basic Metabolic Panel; Complete Time: 17:25 [facility] 01/13 14:46 Order name: CBC with Diff; Complete Time: 17: [facility] 01/13 14:46 Order name: LFT's; Complete Time: 17:25 [facility] 01/13 14:46 Order name: Magnesium; Complete Time: 17:25 [facility] 01/13 14:46 Order name: NT PRO-BNP; Complete Time: 17:25 [facility] 01/13 14:46 Order name: PT-INR; Complete Time: 17:25 [facility] 01/13 14:46 Order name: Troponin HS; Complete Time: 17:25 [facility] 01/13 14:46 Order name: Lipase; Complete Time: 17:25 [facility] 01/13 14:46 Order name: Urinalysis w/ reflexes; Complete Time: 17:25 [facility] 01/13 14:46 Order name: Blood Culture Adult (2) [facility] 01/13 14:46 Order name: Lactate w/ 2H reflex if indic.; Complete Time: 17:53 [facility] 01/13 14:46 Order name: Flu; Complete Time: 17:25 [facility] 01/13 14:46 Order name: SARS RAPID; Complete Time: 17:25 [facility] 01/13 17:26 Order name: ABG; Complete Time: 17:53 [facility] 01/13 18:38 Order name: Urinalysis w/ reflexes [facility] 01/13 18:39 Order name: BETA HYDROXYBUTYRATE [facility] 01/13 19:28 Order name: Ghost Lactate-NO COLLECT Timer [facility] 01/13 14:46 Order name: XRAY Chest (1 view); Complete Time: 17:25 [facility] 01/13 14:46 Order name: CT Traumagram (Head C Spine CAP wo con); Complete Time: 17:25 [facility] 01/13 14:46 Order name: EKG; Complete Time: 14:47 [facility] 01/13 14:46 Order name: Cardiac monitoring; Complete Time: 15:04 [facility] 01/13 14:46 Order name: EKG - Nurse/Tech; Complete Time: 15:04 [facility] 01/13 14:46 Order name: IV Saline Lock; Complete Time: 15:04 [facility] 01/13 14:46 Order name: Labs collected and sent; Complete Time: 15:04 [facility] 01/13 14:46 Order name: O2 Per Protocol; Complete Time: 15:04 [facility] 01/13 14:46 Order name: O2 Sat Monitoring; Complete Time: 15:04 [facility] 01/13 17:26 Order name: Izaguirre; Complete Time: 17:52 [facility] 01/13 17:26 Order name: IV Saline Lock - Large Bore; Complete Time: 17:28 [facility] EC:58 Rate is 114 beats/min. Rhythm is regular. QRS [place] is Normal. [place] interval is normal. paco QRS interval is normal. QT interval is normal. No Q waves. T waves are Normal. No ST changes noted. Clinical impression: Sinus tachycardia and No evidence of ischemia. Interpreted by me. Reviewed by me. Administered Medications: 16:13 Drug: NS 0.9% IV 500 ml IV at bolus once Route: IV; Rate: bolus; Site: right [facility] antecubital; 17:00 Follow up: Response: No adverse reaction; IV Status: Completed infusion; IV Intake: ko1 500ml 16:13 Drug: Rocephin IV 1 grams IV at per protocol once; Given slow IV push per pharmacy ko1 instructions Route: IV; Rate: per protocol; Site: right antecubital; 16:30 Follow up: Response: No adverse reaction; IV Status: Completed infusion; IV Intake: [id number] 17:42 Drug: NS 0.9% IV 1000 ml IV at 1 bolus Per protocol; 1000 mL bolus Route: IV; Rate: 1 ko1 bolus; Site: right antecubital; 18:18 Follow up: Response: No adverse reaction; IV Status: Completed infusion; IV Intake: ko1 1000ml 17:42 Drug: Famotidine IVP 20 mg IVP once; dilute with 10 mL 0.9% NaCl; give over 2 minutes ko1 Route: IVP; Site: right antecubital; 17:57 Follow up: Response: No adverse reaction ko1 17:43 Drug: NS 0.9% IV 1000 ml IV at 1 bolus Per protocol; 1000 mL bolus Route: IV; Rate: 1 ko1 bolus; Site: right antecubital; 18:19 Follow up: Response: No adverse reaction; IV Status: Completed infusion; IV Intake: ko1 1000ml 18:01 Drug: Sodium Bicarbonate IVP 1 amp IVP once; (50 mL); equals 50 mEq Route: IVP; Site: ko1 left antecubital; 18:16 Follow up: Response: No adverse reaction ko1 18:11 Drug: Insulin Drip - (Insulin Regular Human IVP 100 units, NS 0.9% IV 100 ml) IV at 5 ko1 ml/hr continuous; Standard concentration 1unit/ml; Dose for DKA is 0.1 units/kg/hr {Co-Signature: dd2 (IRIS BONNER RN).} Route: IV; Rate: 5 ml/hr; Site: right antecubital; 19:27 Follow up: IV Status: Infusion continued upon transfer me1 18:35 Drug: NS 0.9% IV 1000 ml IV at 125 ml/hr continuous Route: IV; Rate: 125 ml/hr; Site: ko1 right antecubital; 19:26 Follow up: IV Status: Infusion continued upon admission me1 Disposition: 18:00 Critical Care:. paco Disposition Summary: 01/14/24 18:09 Hospitalization Ordered Notes: Hospitalization Status: Inpatient Admission paco Provider: Gigi Sebastian cha Location: Intensive Care Unit paco Condition: Critical paco Problem: new paco Symptoms: are unchanged paco Bed/Room Type: Standard paco Room Assignment: 3-(01/14/24 18:47) dw Diagnosis - Diabetes mellitus due to underlying condition with ketoacidosis paco - Type 1 diabetes mellitus with ketoacidosis paco - Altered mental status, unspecified paco - Severe sepsis without septic shock paco - History of falling paco - Wedge compression fracture of unspecified thoracic vertebra - T12 MILD ACUTE paco Forms: - Medication Reconciliation Form paco - SBAR form paco - Leadership Thank You Letter paco Critical care time excluding procedures: 18:00 Critical care time: Bedside Care: 40 minutes, Consultation: 10 minutes, Family paco Intervention: 10 minutes. Total time: 60 minutes Signatures: Dispatcher [employer] Iris Iverson, RN Wilder Yoder MD MD cha Oliver, Kathy, RN RN ko1 Najma López RN me1 IRIS BONNER RN dd2 Corrections: (The following items were deleted from the chart) 14:47 14:47 BASIC METABOLIC PANEL+C.LAB.BRZ ordered. EDMS EDMS 14:47 14:47 CBC+H.LAB.BRZ ordered. EDMS EDMS 14:47 14:47 HEPATIC FUNCTION+C.LAB.BRZ ordered. EDMS EDMS 14:47 14:47 MAGNESIUM+C.LAB.BRZ ordered. EDMS EDMS 14:47 14:47 PROBNP+C.LAB.BRZ ordered. EDMS EDMS 14:47 14:47 PROTIME (+INR)+COAG.LAB.BRZ ordered. EDMS EDMS 14:47 14:47 Troponin High Sensitivity+C.LAB.BRZ ordered. EDMS EDMS 14:47 14:47 LIPASE+C.LAB.BRZ ordered. EDMS EDMS 14:47 14:47 Urinalysis+U.LAB.BRZ ordered. EDMS EDMS 14:47 14:47 BLOOD CULTURE*+BA.LAB.BRZ ordered. EDMS EDMS 14:47 14:47 LACTATE+C.LAB.BRZ ordered. EDMS EDMS 14:47 14:47 Influenza Screen (A \T\ B)+BA.LAB.BRZ ordered. EDMS EDMS 14:47 14:47 SARS-COV-2 Antigen Rapid+I.LAB.BRZ ordered. EDMS EDMS 18:47 18:09 paco [place]
[2024-01-14] MEDS ORDERED: ACETAMINOPHEN 325 MG TABLET PO PRN (18:33)
[2024-01-14] MEDS ORDERED: ONDANSETRON 4 MG/2 ML VIAL IV PRN (18:33)
[2024-01-14] MEDS ORDERED: D50W 25 GM/50 ML SYRINGE IV PRN (18:41)
[2024-01-14] MEDS ORDERED: GLUCAGON 1 MG/VIAL IM PRN (18:41)
[2024-01-14] MEDS ORDERED: D10W 125 ML IV PRN (19:26)
[2024-01-14] MEDS: INSULIN REGULAR, HUMAN 100 UNIT in NA CHLORIDE 0.9% 100 ML IV SCH (20:00)
[2024-01-14 20:18] VITALS: O2SAT 100
[2024-01-14 21:20] LABS: Anion Gap 27.8 mEq/L (5.0-15.0); BUN Blood Urea Nitrogen 31 mg/dL (7-18); Glomerular Filtration Rate 59 ml/min (=/>90); Glucose Level 388 mg/dL (74-106); Potassium 3.8 mEq/L (3.5-5.1); Sodium Level 144 mEq/L (136-145)
[2024-01-14 21:28] LABS: Bicarbonate < 8 mEq/L (21-32)
[2024-01-14] MEDS: NACHLORIDE 0.45% 1,000 ML IV SCH (22:12)
[2024-01-15] MEDS: D5 0.45 NS 1,000 ML IV SCH (00:03)
[2024-01-15 01:13] LABS: Anion Gap 20.4 mEq/L (5.0-15.0); Potassium 3.4 mEq/L (3.5-5.1)
[2024-01-15 02:09] LABS: Specific Gravity 1.018 (1.005-1.030); Sqamous Epithelial <5 /HPF (None Seen); Urine Bacteria <20 /HPF (<20); Urine Bilirubin NEGATIVE (Negative); Urine Blood 1+ (Negative); Urine Clarity Extremely Turbid (Clear); Urine Color Light-Yellow (Yellow); Urine Culture Reflex Order REFLEXED; Urine Glucose 4+ (Over) (Negative); Urine Ketones 3+ (Negative); Urine Microscopic Reflex YN ORDER UMIC; Urine Mucus Slight /HPF (None Seen); Urine Nitrite NEGATIVE (Negative); Urine Protein TRACE (Negative); Urine Urobilinogen Normal (Normal); Urine WBC >50 /HPF (<5); Urine Yeast (Budding) Many /HPF (None Seen)
[2024-01-15 02:19] LABS: Anion Gap 18.7 mEq/L (5.0-15.0); Potassium 3.7 mEq/L (3.5-5.1)
--- NOTE | 2024-01-15 04:15 | P.HP ---
Certification for Inpatient Patient admitted to: Inpatient With expected LOS: >2 Midnights Practitioner: I am a practitioner with admitting privileges, knowledge of patient current condition, hospital course, and medical plan of care. Services: Services provided to patient in accordance with Admission requirements found in Title 42 Section 412.3 of the Code of Federal Regulations Patient History Date of Service: 01/14/24 Reason for admission: AMS History of Present Illness: 78 yrs old Female with past medical history of Alzheimer's dementia, diabetes, hyperlipidemia, hypertension, hypothyroidism who was in dementia care brought to ER with altered mental status. Patient is altered hence most of the history is obtained from the chart review and also talking to the family member at the bedside. Daughter stated that the patient has not been eating the recent few days. Patient has a history of hip fracture since which she has been on the decline. She also has a history of recurrent UTI and history of multiple falls. Patient was assessed in the ER and was admitted for further management. Patient found to be in DKA and admitted to the ICU with insulin drip Allergies No Known Allergies Allergy (Unverified 10/23/23 22:23) Home medications list reviewed: Yes Home Medications: Glimepiride 4 mg PO BIDWM 10/23/23 Levothyroxine [Synthroid*] 112 mcg PO [id number] 10/23/23 Metformin HCl [Glucophage*] 500 mg PO BIDWM 10/23/23 Pioglitazone HCl [Actos] 30 mg PO DAILY 10/23/23 Pantoprazole [Protonix Tab*] 40 mg PO DAILY 30 Days #30 tab 10/29/23 Acetaminophen 500 mg PO Q6HR PRN 11/02/23 Rosuvastatin Calcium [Crestor] 10 mg PO DAILY 11/02/23 Acidophilus/Bulgaricus [Lactinex Packet] 1 each PO TID #90 tab 11/03/23 Cefdinir [Cefdinir*] 300 mg PO BID #14 cap 11/03/23 Ensure High Protein 240 ml PO TIDWM #90 can 11/03/23 Magnesium Chloride [Slow-Mag*] 64 mg PO BID #30 tab 11/03/23 Potassium Chloride 20 meq PO BID #30 tab 11/03/23 metroNIDAZOLE [Flagyl*] 500 mg PO Q8H 7 Days #21 tab 11/03/23 predniSONE [Prednisone*] 20 mg PO DAILY #5 tab 11/03/23 Hydrocodone 5/APAP 325 [[place] 5/325*] 1 tab PO Q4HP PRN 3 Days #18 tab 11/12/23 - Past Medical/Surgical History Diabetic: Yes Past Medical History: Reviewed- Non-Contributory -: DM -: HTN -: Hypothyroidism -: HLD -: chronic UTI Past Surgical History: Reviewed- Non-Contributory -: Hysterectomy -: Thumb Joint Surgery -: right hip sx - Social History Smoking Status: Never smoker Alcohol use: No CD- Drugs: No Caffeine use: No Place of Residence: Long-Term Review of Systems is unable to be obtained Physical Examination - Vital Signs Temperature: 96.8 F Blood Pressure: 102/52 Pulse: 85 Respirations: 15 Pulse Ox (%): 100 - Physical Exam General: Cachectic, Demented, Other (Altered mental status) HEENT: Atraumatic, Normocephalic Neck: Supple Respiratory: Diminished Cardiovascular: Regular rate/rhythm, Normal S1 S2 Capillary refill: <2 Seconds Gastrointestinal: Soft and benign, W/out hepatosplenomegaly Musculoskeletal: No clubbing, No swelling Integumentary: No rashes, No breakdown Neurological: Other (Drowsy , not arousable ) Lymphatics: No axilla or inguinal lymphadenopathy - Studies Laboratory Data (last 24 hrs) 01/14/24 01/14/24 01/14/24 14:45 14:45 14:45 WBC 10.70 Hgb 12.2 Hct 39.6 Plt Count 469 H PT 10.9 INR 0.97 Sodium 136 Potassium 4.4 BUN 29 H Creatinine 1.33 H Glucose 495 H* Magnesium 2.2 Total Bilirubin 0.4 AST < 10 L ALT 17 Alkaline Phosphatase 133 H Lipase 40 Microbiology Data (last 24 hrs): 01/14/24 15:30 Nasopharnyx Influenza Type A Antigen Screen - Final 01/14/24 15:30 Nasopharnyx Influenza Type B Antigen Screen - Final Assessment and Plan - Plan Diabetic ketoacidosis Admit to ICU Insulin drip Aggressive hydration BMP VBG monitored Acute encephalopathy metabolic Possibly induced by UTI/DKA Patient has baseline dementia CT head showing no acute changes Neuro vital signs monitor closely UTI Started on IV antibiotics Monitor cultures Change antibiotic as per sensitivity Dementia Hypertension Hyperlipidemia Continue home medications and titrate as needed Discussed in detail with the daughter Goals of care was discussed as well Her brother is medical power of health care attorney Will keep full code for now Prognosis guarded GI/DVT prophylaxis Advanced directive full code for now Patient was seen and examined on 01/14/2024 This note is for the encounter on the day 01/14/2024 Discharge Plan: Long-Term - Advance Directives Does patient have a Living Will: No Does patient have a Durable POA for Healthcare: Yes - Code Status/Comfort Care Code Status: Full Code Time Spent Managing Pts Care (In Minutes): 65
[2024-01-15 04:49] LABS: Blood Gas Oxyhemoglobin 36.9 % (94-97); Blood Gas THB 10.1 g/dl (12-18); Blood O2 Saturation 37.7 % (92-98.5)
[2024-01-15 05:12] LABS: Absolute Basophils 0.1 K/uL (0-0.5); Absolute Lymphocytes (CBC) 1.3 K/uL (0.7-4.9); Absolute Monocytes 0.9 K/uL (0.1-1.3); Absolute Neutrophil 12.6 K/uL (1.8-8.0); Basophils % 0.7 % (0-1.3); Eosinophils % 0.1 % (0-4.4); Hematocrit 29.7 % (36.0-45.0); Hemoglobin 9.6 g/dL (12.0-15.0); Lymphocytes % 8.6 % (15.3-44.8); MCH 29.5 pg (27.0-35.0); MCHC 32.5 g/dL (32.0-36.0); MCV 90.7 fL (80-100); MPV 9.2 fL (7.6-11.3); Neutrophils % 84.6 % (41.7-73.7); Platelets 356 thou/uL (152-406); RBC Red Blood Cell Count 3.27 M/uL (3.86-4.86); Red Cell Distribution Width 14.9 % (12.1-15.2)
[2024-01-15 05:18] LABS: Anion Gap 19.6 mEq/L (5.0-15.0); Potassium 3.6 mEq/L (3.5-5.1)
[2024-01-15] MEDS: KCL 20 MEQ/100 mL IVPB 20 MEQ/100 ML BAG IV ONE (05:48)
[2024-01-15] MEDS: MAGNESIUM SULFATE 1 gm IVPB 1 GM/100 ML BAG IV ONE (05:49)
[2024-01-15 08:39] LABS: Blood Morphology Comment NOT SEEN (NOT SEEN); Platelet Estimate ADEQ; White Blood Cell Scan OK (OK)
[2024-01-15] MEDS: CEFTRIAXONE 1,000 MG in NA CHLORIDE 0.9% 50 ML IVPB SCH (08:46)
[2024-01-15 09:53] LABS: Anion Gap 12.7 mEq/L (5.0-15.0); Potassium 3.7 mEq/L (3.5-5.1)
[2024-01-15] MEDS: KCL 20 MEQ/100 mL IVPB 20 MEQ/100 ML BAG IV SCH ×2 (11:42→23:17)
--- NOTE | 2024-01-15 13:18 | P.PN ---
Subjective Date of Service: 01/15/24 Chief Complaint: AMS Patient remained unresponsive. Metabolic acidosis has improved and bicarb level improved. No recorded fever. Physical Examination - Vital Signs Temperature: 97.0 F Blood Pressure: 126/58 Pulse: 75 Respirations: 16 Pulse Ox (%): 100 - Studies Laboratory Data (last 24 hrs) 01/14/24 01/14/24 01/14/24 14:45 14:45 14:45 WBC 10.70 Hgb 12.2 Hct 39.6 Plt Count 469 H PT 10.9 INR 0.97 Sodium 136 Potassium 4.4 BUN 29 H Creatinine 1.33 H Glucose 495 H* Magnesium 2.2 Total Bilirubin 0.4 AST < 10 L ALT 17 Alkaline Phosphatase 133 H Lipase 40 Microbiology Data (last 24 hrs): 01/14/24 16:42 Blood - Blood Anaerobic Blood Culture - Final 01/14/24 15:30 Nasopharnyx Influenza Type A Antigen Screen - Final 01/14/24 15:30 Nasopharnyx Influenza Type B Antigen Screen - Final Assessment And Plan - Plan Physical examination General: Obtunded, NAD HEENT: Conjunctiva not pale, anicteric sclera Neck: Supple, no elevated JVD Heart: Heart sounds 1 and 2 normal, regular rhythm, normal rate, no pedal edema Lungs: Clear to auscultation bilaterally, adequate breath sounds bilaterally, no rhonchi or crackles. Abdomen: Soft, nondistended, nontender, normal bowel sounds. Extremities: No tenderness, no deformity Skin: Normal skin turgor, no rash, no nodules or ulcers. Neuro: Patient moves all extremities, obtunded Psychiatry: Obtunded Diabetic ketoacidosis Acidosis is improving Continue insulin drip Continue hydration Monitor BMP every 6 hours. Acute encephalopathy metabolic Secondary to DKA and UTI Patient has baseline dementia CT head showing no acute changes Neuro vital signs monitor closely UTI Continue IV Rocephin Monitor cultures Change antibiotic as per sensitivity Dementia Hypertension Hyperlipidemia Continue home medications and titrate as needed Prognosis guarded GI/DVT prophylaxis: Heparin SQ Advanced directive full code
[2024-01-15 14:27] LABS: Anion Gap 16.1 mEq/L (5.0-15.0); Potassium 4.1 mEq/L (3.5-5.1)
[2024-01-15] MEDS: NA CHLORIDE 0.9% 100 ML ONE (16:47)
[2024-01-15] MEDS: INSULIN REGULAR (HUMAN) 100 UNIT/ML ONE (16:47)
[2024-01-15] MEDS: MORPHINE 4 MG/ML SYR IV PRN (18:18)
[2024-01-15 20:11] LABS: Anion Gap 14.7 mEq/L (5.0-15.0); Potassium 3.7 mEq/L (3.5-5.1)
[2024-01-15] MEDS: HEPARIN 5000 UNIT/ML 1 ML VIAL SQ SCH (20:38)
[2024-01-16 01:59] LABS: Anion Gap 13.7 mEq/L (5.0-15.0); Potassium 3.7 mEq/L (3.5-5.1)
[2024-01-16 07:39] LABS: Absolute Lymphocytes (CBC) 1.3 K/uL (0.7-4.9); Absolute Monocytes 0.5 K/uL (0.1-1.3); Basophils % 0.2 % (0-1.3); Eosinophils % 0.5 % (0-4.4); Hematocrit 28.8 % (36.0-45.0); Hemoglobin 9.5 g/dL (12.0-15.0); Lymphocytes % 14.5 % (15.3-44.8); MCH 29.3 pg (27.0-35.0); MCHC 33.1 g/dL (32.0-36.0); MCV 88.4 fL (80-100); MPV 8.4 fL (7.6-11.3); Neutrophils % 78.8 % (41.7-73.7); Platelets 328 thou/uL (152-406); RBC Red Blood Cell Count 3.26 M/uL (3.86-4.86); Red Cell Distribution Width 15.5 % (12.1-15.2)
[2024-01-16 07:47] LABS: Anion Gap 12.5 mEq/L (5.0-15.0); Potassium 3.5 mEq/L (3.5-5.1)
[2024-01-16] MEDS ORDERED: D50W 25 GM/50 ML SYRINGE IV PRN (11:52)
[2024-01-16] MEDS ORDERED: GLUCAGON 1 MG/VIAL IM PRN (11:52)
[2024-01-16] MEDS: INSULIN REGULAR (HUMAN) 100 UNIT/ML SQ SCH (12:10)
--- NOTE | 2024-01-16 12:55 | P.PN ---
Subjective Date of Service: 01/16/24 Chief Complaint: AMS Patient is more interactive today. It appears her mental status is improving Metabolic acidosis has improved. No recorded fever. Physical Examination - Vital Signs Temperature: 97.6 F Blood Pressure: 118/98 Pulse: 76 Respirations: 18 Pulse Ox (%): 100 - Studies Microbiology Data (last 24 hrs): 01/14/24 16:42 Blood - Blood Anaerobic Blood Culture - Final Assessment And Plan - Plan Physical examination General: Drowsy but easily arousable, NAD HEENT: Conjunctiva not pale, anicteric sclera Neck: Supple, no elevated JVD Heart: Heart sounds 1 and 2 normal, regular rhythm, normal rate, no pedal edema Lungs: Clear to auscultation bilaterally, adequate breath sounds bilaterally, no rhonchi or crackles. Abdomen: Soft, nondistended, nontender, normal bowel sounds. Extremities: No tenderness, no deformity Skin: Normal skin turgor, no rash, no nodules or ulcers. Neuro: Patient moves all extremities, obtunded Psychiatry: Drowsy, no agitation. Assessment and plan Diabetic ketoacidosis DKA resolved Insulin drip transition to subcutaneous insulin Continue IV hydration Monitor BMP Start full liquid diet and advance as tolerated. Acute encephalopathy metabolic Secondary to DKA and UTI Patient has baseline dementia CT head showing no acute changes Neuro vital signs monitor closely UTI Continue IV Rocephin Urine culture still pending. Dementia Hypertension Hyperlipidemia Continue home medications and titrate as needed Prognosis guarded GI/DVT prophylaxis: Heparin SQ Advanced directive full code
--- NOTE | 2024-01-16 13:50 | EKG ---
Test Date: 2024-01-14 Test Time: 14:39:02 Bridge Attacher: JHONY MEASUREMENT RESULTS: Intervals: Rate: 111 WA: 158 QRSD: 78 QT: 354 QTc: 481 [place]: P: 70 WA: 158 QRS: -88 T: 66 INTERPRETIVE STATEMENTS: Sinus tachycardia Right atrial enlargement Left axis deviation Inferior infarct, age undetermined Possible Anterolateral infarct, age undetermined Abnormal ECG Compared to ECG 10/31/2023 22:15:20 Atrial abnormality now present Sinus rhythm no longer present Prolonged QT interval no longer present Myocardial infarct finding still present Electronically Signed On 01-16-24 13:45:43 CDT by Tian Gomes
[2024-01-16] MEDS: NA CHLORIDE 0.9% 1,000 ML IV SCH (15:51)
[2024-01-16] MEDS: TRAZODONE 50 MG TABLET PO ONE (23:11)
[2024-01-17 05:49] LABS: Absolute Lymphocytes (CBC) 1.1 K/uL (0.7-4.9); Absolute Monocytes 0.4 K/uL (0.1-1.3); Basophils % 0.4 % (0-1.3); Eosinophils % 0.7 % (0-4.4); Hematocrit 26.8 % (36.0-45.0); Hemoglobin 9.2 g/dL (12.0-15.0); Lymphocytes % 24.3 % (15.3-44.8); MCHC 34.3 g/dL (32.0-36.0); MCV 87.6 fL (80-100); MPV 9.3 fL (7.6-11.3); Monocytes % 8.2 % (3.3-12.3); Neutrophils % 66.4 % (41.7-73.7); Nucleated Red Blood Cells % 0.1 % (0-0); Platelets 319 thou/uL (152-406); RBC Red Blood Cell Count 3.06 M/uL (3.86-4.86); Red Cell Distribution Width 15.2 % (12.1-15.2)
[2024-01-17 06:12] LABS: Anion Gap 12.8 mEq/L (5.0-15.0); Magnesium 1.2 mg/dL (1.6-2.4); Potassium 2.8 mEq/L (3.5-5.1)
[2024-01-17 06:47] VITALS: BMI 17.4
[2024-01-17 07:24] LABS: Phosphorus 1.9 mg/dL (2.5-4.9)
[2024-01-17] MEDS: Magnesium Sulfate 2gm IVPB 2 G/50 ML BAG IV ONE (07:54)
[2024-01-17] MEDS: KCL 20 MEQ/100 mL IVPB 20 MEQ/100 ML BAG IV SCH (07:54)
[2024-01-17] MEDS: POTASSIUM PHOS IN 0.9 % NACL 15 MMOL/250 ML BAG IV SCH ×2 (08:00→12:54)
--- NOTE | 2024-01-17 14:22 | P.PN ---
Subjective Date of Service: 01/17/24 Chief Complaint: AMS Patient's mental status continue to improve. She has been tolerating diet. No issues overnight. No recorded fever. Physical Examination - Vital Signs Temperature: 97.3 F Blood Pressure: 127/99 Pulse: 85 Respirations: 16 Pulse Ox (%): 99 Assessment And Plan - Plan Physical examination General: Awake, NAD Neck: No elevated JVD Heart: Heart sounds 1 and 2 normal, regular rhythm, normal rate, no pedal edema Lungs: Clear to auscultation bilaterally, adequate breath sounds bilaterally, no rhonchi or crackles. Abdomen: Soft, nondistended, nontender, normal bowel sounds. Extremities: No tenderness, no deformity Skin: Normal skin turgor, no rash, no nodules or ulcers. Neuro: Patient moves all extremities, no focal motor deficit Psychiatry: No agitation. Assessment and plan Diabetic ketoacidosis DKA resolved Insulin drip transition to subcutaneous insulin Continue IV hydration Advance diet as tolerated Monitor BMP Acute metabolic encephalopathy. Secondary to DKA and UTI Patient has baseline advanced dementia and lives in [facility] memory unit. CT head showing no acute changes. Mental status is improving slowly. UTI Urine culture shows yeast Patient completed 3 days of IV Rocephin. UA suggested significant UTI. Will treat yeast UTI with Diflucan. Dementia Hypertension Hyperlipidemia Continue home medications. GI/DVT prophylaxis: Heparin SQ Advanced directive: DNR
[2024-01-17] MEDS: TENECTEPLASE 50 MG/10 ML VIAL IV ONE (14:31)
[2024-01-17] MEDS: TRAZODONE 50 MG TABLET PO SCH (21:02)
[2024-01-18 05:31] LABS: Absolute Eosinophils 0.1 K/uL (0-0.5); Absolute Lymphocytes (CBC) 1.1 K/uL (0.7-4.9); Absolute Monocytes 0.4 K/uL (0.1-1.3); Absolute Neutrophil 2.8 K/uL (1.8-8.0); Basophils % 0.6 % (0-1.3); Eosinophils % 1.3 % (0-4.4); Hematocrit 30.9 % (36.0-45.0); Hemoglobin 10.5 g/dL (12.0-15.0); Lymphocytes % 24.8 % (15.3-44.8); MCH 29.9 pg (27.0-35.0); MCHC 34.1 g/dL (32.0-36.0); MCV 87.8 fL (80-100); MPV 8.7 fL (7.6-11.3); Neutrophils % 64.3 % (41.7-73.7); Nucleated Red Blood Cells % 0.2 % (0-0); Platelets 343 thou/uL (152-406); RBC Red Blood Cell Count 3.52 M/uL (3.86-4.86)
[2024-01-18 05:53] LABS: Anion Gap 16.3 mEq/L (5.0-15.0); Potassium 3.3 mEq/L (3.5-5.1)
--- NOTE | 2024-01-18 09:34 | P.PN ---
Date of Service: 01/18/24 Subjective: feeling better today. able to get some rest overnight pulled out IV yesterday evening appetite okay doesn't feel anything is getting worse ROS: 10 point ROS as noted above, otherwise negative Physical Exam: GEN: awake, oriented x1, NAD HEENT: Normal conjunctiva, sclera anicteric, CV: Regular rate and rhythm, no edema Pulm: Nonlabored respirations on room air, clear bilaterally ABD: soft, nontender, nondistended\ Neuro: Normal speech, normal affect Problem List: DKA, resolved UTI, secondary to yeast Acute metabolic encephalopathy secondary to DKA Hypokalemia Dementia Hypertension Hyperlipidemia DKA, resolved DKA resolved s/p Insulin drip; transitioned to subcutaneous insulin 01/15 Continue IV hydration Tolerating liquid diet. Advance diet as tolerated PRN glucagon / dextrose Daily labs UTI, secondary to yeast Urine cx (01/14): 3+ yeast blood cx (01/13): NGTD s/p IV Rocephin (01/14-01/16) Start PO diflucan to cover yeast; added 01/17 Acute metabolic encephalopathy secondary to DKA encephalopathy secondary to DKA Patient has baseline advanced dementia and lives in [facility] memory unit. CT head was negative for any acute findings. Mental status ~baseline Hypokalemia Monitor and replete electrolytes as needed potassium improving Dementia Hypertension Hyperlipidemia Continue home medications VTE: heparin sq Code: DNR Dispo: back to [facility], anticipate tomorrow Time Spent Managing Pts Care (In Minutes): 39
[2024-01-18] MEDS: FLUCONAZOLE 100 MG TAB PO SCH (10:22)
--- NOTE | 2024-01-18 16:33 | EKG ---
Test Date: 2024-01-14 Test Time: 14:40:57 Drier Helper: JHONY MEASUREMENT RESULTS: Intervals: Rate: 114 OR: 160 QRSD: 82 QT: 346 QTc: 476 [place]: P: 69 OR: 160 QRS: -88 T: 75 INTERPRETIVE STATEMENTS: Sinus tachycardia Biatrial enlargement Left axis deviation Inferior infarct, age undetermined Anterolateral infarct, age undetermined Abnormal ECG Compared to ECG 01/14/2024 14:39:02 No significant changes Electronically Signed On 01-18-24 16:30:46 CDT by Tian Gomes
[2024-01-19 06:19] LABS: Absolute Eosinophils 0.1 K/uL (0-0.5); Absolute Lymphocytes (CBC) 1.3 K/uL (0.7-4.9); Absolute Monocytes 0.5 K/uL (0.1-1.3); Absolute Neutrophil 3.1 K/uL (1.8-8.0); Basophils % 0.5 % (0-1.3); Eosinophils % 1.5 % (0-4.4); Hematocrit 34.8 % (36.0-45.0); Hemoglobin 11.7 g/dL (12.0-15.0); Lymphocytes % 26.9 % (15.3-44.8); MCHC 33.7 g/dL (32.0-36.0); MCV 89.1 fL (80-100); Monocytes % 9.2 % (3.3-12.3); Neutrophils % 61.9 % (41.7-73.7); Platelets 343 thou/uL (152-406); RBC Red Blood Cell Count 3.91 M/uL (3.86-4.86); Red Cell Distribution Width 15.1 % (12.1-15.2)
[2024-01-19 06:45] LABS: Anion Gap 12.7 mEq/L (5.0-15.0); Magnesium 1.7 mg/dL (1.6-2.4); Potassium 3.7 mEq/L (3.5-5.1)
[2024-01-19] MEDS: POTASSIUM CL SA 10 MEQ TAB PO ONE (08:02)
[2024-01-19] MEDS: GLIMEPIRIDE 2 MG TABLET PO SCH (08:02)
[2024-01-19] MEDS: METFORMIN HCL 500 MG TAB PO SCH (08:02)
[2024-01-19] MEDS: PANTOPRAZOLE 40MG TABLET PO SCH (08:03)
[2024-01-19] MEDS: LEVOTHYROXINE SOD 0.112 MG TAB PO SCH (08:07)
--- NOTE | 2024-01-19 08:20 | P.PN ---
Date of Service: 01/19/24 Subjective: mentation ~same, near baseline tolerating liquid diet without issues no issues overnight doesn't think anything is getting worse ROS: 10 point ROS as noted above, otherwise negative Physical Exam: GEN: awake, oriented x1, NAD HEENT: Normal conjunctiva, sclera anicteric, CV: Regular rate and rhythm, no edema Pulm: Non-labored respirations on room air, clear bilaterally ABD: soft, nontender, nondistended Neuro: Normal speech, normal affect Problem List: DKA, resolved UTI, secondary to yeast Acute metabolic encephalopathy secondary to DKA Hypokalemia Dementia Hypertension Hyperlipidemia DKA, resolved DKA resolved s/p Insulin drip; transitioned to [facility] subcutaneous insulin 01/15 restarted metformin and glimepiride 01/18 Continue IV hydration Advance to regular diet 01/18 Daily labs UTI, secondary to yeast Urine cx (01/14): 3+ yeast blood cx (01/13): NGTD s/p IV Rocephin (01/14-01/16) continue PO diflucan 2 wks; added 01/17 Acute metabolic encephalopathy secondary to DKA encephalopathy secondary to DKA Patient has baseline advanced dementia and lives in [facility] memory unit. CT head was negative for any acute findings. Mental status ~baseline Hypokalemia Monitor and replete electrolytes as needed potassium improving Dementia Hypertension Hyperlipidemia Continue home medications VTE: heparin sq Code: DNR Dispo: back to [facility] anticipate tomorrow pending glc stable, tolerating diet Time Spent Managing Pts Care (In Minutes): 39
[2024-01-19] MEDS: ROSUVASTATIN 10 MG TAB PO SCH (20:46)
[2024-01-20 06:32] LABS: Anion Gap 8.5 mEq/L (5.0-15.0); Magnesium 1.4 mg/dL (1.6-2.4); Potassium 3.5 mEq/L (3.5-5.1)
--- NOTE | 2024-01-20 07:53 | P.DS ---
Admission Date: 01/14/24 Discharge Date: 01/20/24 Disposition: TRANSFER TO ASSISTED Discharge Condition: GOOD Reason for Admission: AMS Brief History of Present Illness: 78yo F, PMH: Alzheimer's dementia, diabetes, hyperlipidemia, hypertension, hypothyroidism who was in dementia care Patient was brought to ER with altered mental status. Patient is altered hence most of the history is obtained from the chart review and also talking to the family member at the bedside. Daughter stated that the patient has not been eating the recent few days. Patient has a history of hip fracture since which she has been on the decline. She also has a history of recurrent UTI and history of multiple falls. Patient was assessed in the ER and was admitted for further management. Patient found to be in DKA and admitted to the ICU with insulin drip Hospital Course: Problem List: DKA, resolved UTI, secondary to yeast Acute metabolic encephalopathy secondary to DKA; improved Hypokalemia, improved Dementia Hypertension Hyperlipidemia Physician discharge instructions: Patient presented with fatigue, altered mentation. She was found to be in diabetic ketoacidosis with anion gap 31.4, uncontrolled glucose in 400-500s on admission. Patient was given IVF in ED and started on an insulin drip and had improvement of her symptoms. Anion gap closed, acidosis improved 01/14. She was transitioned of insulin drip and received sliding scale insulin and continued to show improvement each day. Glucose levels remained in the 120-200 range without much insulin while she was not having much appetite. As her appetite improved and glucose levels slowly began to rise, she was restarted on her oral metformin and half dose of her glimepiride with glucose levels 150-220. Recommend continue home medications, continue to monitor with accucheks ACHS. Mentation improved to baseline once DKA resolved. Suspect encephalopathy secondary to baseline dementia further exacerbated by DKA. Patient was feeling better clsoe to her normal self, strength improving, glucose stable, and was deemed stable for discharge. Urinalysis in ED noted +leuk esterase, yeast, ketones, no WBCs, no bacteria. She was started on empiric rocephin to cover possible bacterial infection/UTI. Final urine culture grew 3+ yeast and no bacteria. Blood cultures were without growth. Rocephin was discontinued after 2 days, patient was started on diflucan and had continued improvement of her symptoms. Remained afebrile throughout hospitalization, and leukocytosis of 14.9 on 01/14 resolved the following day and remained normal. Medications: Diflucan 200 mg daily for 2 weeks total to cover acute cystitis- started 01/17, end date:01/30 continue other chronic meds as previously prescribed. Follow up: PCP 3-5 days Please call to schedule / confirm appointments Physical Exam: GEN: awake, oriented x1-2, NAD HEENT: Normal conjunctiva, sclera anicteric, CV: Regular rate and rhythm, no edema Pulm: Non-labored respirations on room air, clear bilaterally ABD: soft, nontender, nondistended Neuro: Normal speech, normal affect Vital Signs/Physical Exam: Temp Pulse Resp BP Pulse Ox 98 F 95 H 18 106/51 L 91 01/19/24 20:00 01/19/24 20:00 01/19/24 20:00 01/19/24 20:00 01/19/24 20:00 Laboratory Data at Discharge: WBC 4.90 thou/uL (4.3-10.9) 01/19/24 05:11 Hgb 11.7 g/dL (12.0-15.0) L D 01/19/24 05:11 Hct 34.8 % (36.0-45.0) L 01/19/24 05:11 Plt Count 343 thou/uL (152-406) 01/19/24 05:11 PT 10.9 SECONDS (9.4-12.5) 01/14/24 14:45 INR 0.97 01/14/24 14:45 Sodium 130 mEq/L (136-145) L 01/20/24 05:55 Potassium 3.5 mEq/L (3.5-5.1) 01/20/24 05:55 BUN 14 mg/dL (7-18) 01/20/24 05:55 Creatinine 0.55 mg/dL (0.55-1.02) 01/20/24 05:55 Glucose 256 mg/dL (74-106) H 01/20/24 05:55 Phosphorus 1.9 mg/dL (2.5-4.9) L 01/17/24 05:05 Magnesium 1.4 mg/dL (1.6-2.4) L 01/20/24 05:55 Total Bilirubin 0.4 mg/dL (0.2-1.0) 01/14/24 14:45 AST < 10 U/L (15-37) L 01/14/24 14:45 ALT 17 U/L (13-56) 01/14/24 14:45 Alkaline Phosphatase 133 U/L (45-117) H 01/14/24 14:45 Lipase 40 U/L (13-75) 01/14/24 14:45 Home Medications: Acetaminophen 1,000 mg PO TID PRN 01/15/24 Acetaminophen 500 mg PO Q6H PRN 01/15/24 Dapagliflozin Propanediol [Farxiga] 10 mg PO DAILY 01/15/24 Ferrous Sulfate 325 mg PO DAILY 01/15/24 Glimepiride 4 mg PO BID 01/15/24 Levothyroxine [Synthroid*] 112 mcg PO DAILY 01/15/24 Magnesium Chloride [Slow-Mag*] 71.5 mg PO BID 01/15/24 Metformin HCl 1,000 mg PO BID 01/15/24 Mirtazapine 15 mg PO DAILY 01/15/24 Pantoprazole [Protonix Tab*] 40 mg PO DAILY 01/15/24 Pioglitazone HCl 30 mg PO DAILY 01/15/24 Potassium Chloride 20 meq PO BID 01/15/24 Rosuvastatin [Crestor*] 10 mg PO BEDTIME 01/15/24 Trazodone HCl 50 mg PO BEDTIME 01/15/24 Fluconazole [Diflucan] 200 mg PO DAILY 11 Days #11 tab 01/20/24 New Medications: Fluconazole [Diflucan] 200 mg PO DAILY 11 Days #11 tab Physician Discharge Instructions: Physician discharge instructions: Patient presented with fatigue, altered mentation. She was found to be in diabetic ketoacidosis with anion gap 31.4, uncontrolled glucose in 400-500s on admission. Patient was given IVF in ED and started on an insulin drip and had improvement of her symptoms. Anion gap closed, acidosis improved 01/14. She was transitioned of insulin drip and received sliding scale insulin and continued to show improvement each day. Glucose levels remained in the 120-200 range without much insulin while she was not having much appetite. As her appetite improved and glucose levels slowly began to rise, she was restarted on her oral metformin and half dose of her glimepiride with glucose levels 150-220. Recommend continue home medications, continue to monitor with accucheks ACHS. Mentation improved to baseline once DKA resolved. Suspect encephalopathy secondary to baseline dementia further exacerbated by DKA. Patient was feeling better clsoe to her normal self, strength improving, glucose stable, and was deemed stable for discharge. Urinalysis in ED noted +leuk esterase, yeast, ketones, no WBCs, no bacteria. She was started on empiric rocephin to cover possible bacterial infection/UTI. Final urine culture grew 3+ yeast and no bacteria. Blood cultures were without growth. Rocephin was discontinued after 2 days, patient was started on diflucan and had continued improvement of her symptoms. Remained afebrile throughout hospitalization, and leukocytosis of 14.9 on 01/14 resolved the following day and remained normal. Medications: Diflucan 200 mg daily for 2 weeks total to cover acute cystitis- started 01/17, end date:01/30 continue other chronic meds as previously prescribed. Follow up: PCP 3-5 days Please call to schedule / confirm appointments Home health services to resume with: [facility] Home Health P:[phone] Followup: Shaylee Verdugo MD [Primary Care Provider] - Time spent managing pt's care (in minutes): 45
[2024-01-20] MEDS: MAGNESIUM CHLORIDE 64 MG TAB PO SCH (09:06)
[2024-01-20] MEDS: POTASSIUM CL SA 10 MEQ TAB PO ONE (09:06)
[2024-01-20] MEDS: GLIMEPIRIDE 2 MG TABLET PO SCH (09:07)
[2024-01-20 13:14] VITALS: BP 129/62; TEMP 97.5
== END 2024-01-20 14:14 | DRG 637 ==
LOC: ER 14:23 → ERHOLD 18:33 → 3RD-ICU 19:36 → 2ND 01-17 15:22
PROVIDERS: ADMIT Family Medicine; ATTEND Hospitalist
PROC: 0T9B70Z Drainage of Bladder with Drainage Device, Via Natural or Artificial Opening (ICD-10-PCS; 2024-01-14)
PROC: 4A033R1 Measurement of Arterial Saturation, Peripheral, Percutaneous Approach (ICD-10-PCS; principal; 2024-01-17)
DX: E10.10 Type 1 diabetes mellitus with ketoacidosis without coma (principal); E43 Unspecified severe protein-calorie malnutrition; G93.41 Metabolic encephalopathy; S22.080A Wedge compression fracture of T11-T12 vertebra, initial encounter for closed fracture; R64 Cachexia; N39.0 Urinary tract infection, site not specified; L89.151 Pressure ulcer of sacral region, stage 1; E87.6 Hypokalemia; I10 Essential (primary) hypertension; E78.5 Hyperlipidemia, unspecified; E03.9 Hypothyroidism, unspecified; G30.9 Alzheimer's disease, unspecified; F02.80 Dementia in other diseases classified elsewhere, unspecified severity, without behavioral disturbance, psychotic disturbance, mood disturbance, and anxiety; R29.6 Repeated falls; Z66 Do not resuscitate; Z91.81 History of falling; Z11.52 Encounter for screening for COVID-19; Z79.52 Long term (current) use of systemic steroids; Z79.84 Long term (current) use of oral hypoglycemic drugs; Z79.890 Hormone replacement therapy; Z79.899 Other long term (current) drug therapy; Z90.710 Acquired absence of both cervix and uterus
CPT/HCPCS: 36415; 36600; 51702; 70450; 71045; 71250; 72125; 80048; 80076; 81001; 82010; 82805; 82947; 83605; 83690; 83735; 83880; 84100; 84484; 85025; 85610; 87040; 87086; 87088; 87804; 87811; 93005; 97110; 97161; 99285; J0696; J1644; J3101; J3475; J3480; J7030; J7040; J7799

== ENCOUNTER 2024-01-28 18:12 | Inpatient (IN) | payer OTHER ==
--- OUTSIDE RECORDS SUMMARY | 2024-01-28 18:15 | XMS REPORT | Continuity of Care Document ---
Author Name Unknown Address [address] [place] [address] [facility] Address [address] [place] [address] Care Team Providers Care Work Measurement Engineer Name Role Phone BILL PRESTONE Primary Care Physician Unavailab DALTON Aparicio Attending Clinician Unavailable DALTON GUEVARA Attending Clinician Unavailable Harsh Gary MD Attending Clinician [phone] HARSH GARY Attending Clinician HARSH Damon Attending Clinician DALTON Edwards Admitting Clinician Unavailable Payers Payer Name Policy Type Policy Number Effective Date Expirati on Date Source [facility] DUAL COMP CHOICE PPO [id number] 2023 00:00:00 Allergies, Adverse Reactions, Alerts Allergy Name Allergy Type Status Severity Reaction(s) Onset Date Inactive Date Treating Clinician Comments Source NO KNOWN ALLERGIE S Drug Class Active [facility] Social History Social Habit Start Date Stop Date Quantity Comments Source [facility] Alcoholic beverage intake 2023-12-23 00:00:00 2023-12-23 00:00:00 Lifetime non-drinker (finding) [facility] History of Social function 2023-12-13 00:00:00 2023-12-13 00:00:00 [facility] Tobacco use and exposure 2023-12-13 00:00:00 2023-12-13 00:00:00 Smokeless tobacco non-user [facility] Sex assigned at 1945 00:00:00 1945 00:00:00 [facility] Smoking Status Start Date Stop Date Source Never smoked tobacco [facility] Vital Signs Vital Name Observation Time Observation Value Comments S ource Systolic blood pressure 2023-12-23 15:00:00 132 mm[Hg] [facility] Diastolic blood pressure 2023-12-23 15:00:00 83 mm[Hg] [facility] Heart rate 2023-12-23 15:00:00 92 /min [facility] Respiratory rate 2023-12-23 15:00:00 14 /min [facility] Oxygen saturation in Arterial blood by Pulse oximetry 2023-12-23 15:00:00 98 /min [facility] Body temperature 2023-12-23 12:50:00 36.94 Marcy [facility] Body height 2023-12-23 12:50:00 162.6 cm [facility] Body weight 2023-12-23 12:50:00 44.453 kg [facility] BMI 2023-12-23 12:50:00 16.82 kg/m2 [facility] Systolic blood pressure 2023-12-13 14:22:00 115 mm[Hg] [facility] Diastolic blood pressure 2023-12-13 14:22:00 71 mm[Hg] [facility] Heart rate 2023-12-13 14:22:00 86 /min [facility] Respiratory rate 2023-12-13 14:22:00 18 /min [facility] Body height 2023-12-13 14:22:00 167.6 cm [facility] Body weight 2023-12-13 14:22:00 56.246 kg [facility] BMI 2023-12-13 14:22:00 20.01 kg/m2 [facility] Procedures Procedure Date / Time Performed Performing Clinicia n Source URINALYSIS 2023-12-23 14:23:00 Dalton Guevara [facility] XR HAND 3+ VW RIGHT 2023-12-23 13:25:33 Kong Guevara [facility] TROPONIN I 2023-12-23 13:10:00 Guevara, Dalton [facility] COMP. METABOLIC PANEL ([id number]) 2023-12-23 13:10:00 Dalton Guevara [facility] CBC WITH DIFF 2023-12-23 13:10:00 Dalton Guevara [facility] N-TERMINAL PRO-BNP 2023-12-23 13:10:00 Dalton Guevara [facility] Encounters Start Date/Time End Date/Time Encounter Type Admission Type Attending [facility] Care Facility Care Department Encounter ID Source 2023-12-23 07:48:00 2023-12-23 11:01:00 Emergency X DALTON GUEVARA [facility] ERT [id number] [facility] 2023-12-23 07:48:00 2023-12-23 11:01:00 Emergency Dalton Guevara [facility] [id number] [facility] 2023-12-20 00:00:00 2023-12-20 11:14:02 Letter (Out) [facility] [id number] [facility] 2023-12-13 11:04:18 2023-12-13 23:59:00 Hospital Encounter Harsh Gary [facility] [id number] [facility] 2023-12-13 09:00:00 2023-12-13 15:40:21 Office Visit Harsh Gary [facility] [id number] [facility] 2023-12-13 09:00:00 2023-12-13 15:40:21 Outpatient R HARSH GARY [facility] [id number] [facility] Results Test Description Test Time Test [...] gullwing deformities. No acute bonyabnormality is demonstrated. [facility] Notes Date/Time Note Provider Source 2023-12-23 10:44:11 Discharge instructions given to daughter of patient. No further questions. Daughter will take patient back to [facility]. Tanja Stubbs RN [facility] 2023-12-23 07:48:47 Patient to ED for a fall [facility]. Arrived via EMS A&Ox1. Complaining of right arm pain. EMS reports she has had multiple falls recently. Eliceo Medrano RN [facility]
[2024-01-28] MEDS ORDERED: NA CHLORIDE 0.9% 1,000 ML ONE ×2 (18:29→19:49)
[2024-01-28 18:37] LABS: Arterial Blood Carboxyhemoglob 0.4 % (0-1.5); Blood Gas Oxyhemoglobin 93.8 % (94-97); Blood Gas THB 12.4 g/dl (12-18)
[2024-01-28 18:47] LABS: Absolute Lymphocytes (CBC) 1.2 K/uL (0.7-4.9); Absolute Monocytes 0.6 K/uL (0.1-1.3); Absolute Neutrophil 17.2 K/uL (1.8-8.0); Basophils % 0.2 % (0-1.3); Eosinophils % 0.1 % (0-4.4); Hematocrit 42.5 % (36.0-45.0); Hemoglobin 12.4 g/dL (12.0-15.0); Lymphocytes % 6.4 % (15.3-44.8); MCH 29.7 pg (27.0-35.0); MCHC 29.1 g/dL (32.0-36.0); MCV 102.1 fL (80-100); MPV 9.2 fL (7.6-11.3); Monocytes % 3.4 % (3.3-12.3); Neutrophils % 89.9 % (41.7-73.7); Platelets 480 thou/uL (152-406); RBC Red Blood Cell Count 4.16 M/uL (3.86-4.86); Red Cell Distribution Width 17.5 % (12.1-15.2)
--- NOTE | 2024-01-28 18:56 | RAD REPORT ---
EXAM DESCRIPTION: RAD - Chest Single View - 01/28/2024 6:48 pm CLINICAL HISTORY: DYSPNEA Chest pain. COMPARISON: <Comparisons> FINDINGS: Portable technique limits examination quality. The lungs are grossly clear. The heart is normal in size. No displaced fractures. IMPRESSION: No acute intrathoracic process suspected.
--- NOTE | 2024-01-28 19:04 | RAD REPORT ---
EXAM DESCRIPTION: CT - Head Brain Wo Cont - 01/28/2024 6:57 pm CLINICAL HISTORY: CONFUSED Headache, drowsiness COMPARISON: <Comparisons> TECHNIQUE: All CT scans are performed using dose optimization technique as appropriate and may inclu de automated exposure control or mA/KV adjustment according to patient size. FINDINGS: No intracranial hemorrhage, hydrocephalus or extra-axial fluid collection.Mild generalized brain atrophy is present with mild periventricular and deep white matter chronic microvascular ische orsaura changes.No areas of brain edema or evidence of midline shift. The paranasal sinuses and mastoids are clear. The calvarium is intact. IMPRESSION: No acute intracranial abnormality.
[2024-01-28] MEDS ORDERED: SODIUM BICARB 50 MEQ/50ML VIAL ONE (19:15)
[2024-01-28 19:24] LABS: ALT/SGPT 16 U/L (13-56); AST/SGOT < 10 U/L (15-37); Albumin 3.9 g/dL (3.4-5.0); Albumin/Globulin Ratio 0.8 (1.1-1.8); Alkaline Phosphatase 149 U/L (45-117); Anion Gap 33.4 mEq/L (5.0-15.0); BUN Blood Urea Nitrogen 44 mg/dL (7-18); Bilirubin Total 0.4 mg/dL (0.2-1.0); Globulin 4.9 g/dL (2.3-3.5); Glomerular Filtration Rate 35 ml/min (=/>90); Glucose Level 656 mg/dL (74-106); Potassium 5.4 mEq/L (3.5-5.1); Protein, Total 8.8 g/dL (6.4-8.2); Sodium Level 133 mEq/L (136-145)
[2024-01-28 19:26] LABS: Bicarbonate < 8 mEq/L (21-32)
[2024-01-28] MEDS ORDERED: INSULIN REGULAR (HUMAN) 100 UNIT/ML ONE (19:34)
[2024-01-28] MEDS ORDERED: NA CHLORIDE 0.9% 100 ML ONE (19:35)
--- NOTE | 2024-01-28 20:04 | EDPHYS ---
Physician Documentation [facility] Name: Precious Altamirano Age: 78 yrs Sex: Female : 1945 Arrival Date: 01/28/2024 Time: 18:12 Bed 19 Private MD: ED Physician Wilder Veronica HPI: 01/27 20:02 This 78 yrs old Female presents to ER via EMS with complaints of Altered Mental Status, kb Unresponsive, High Blood Sugar. 20:02 Pt is a 78 year old female who was brought in by EMS for unresponsiveness. EMS reports kb this is pt's typical presentation when she is in DKA. long term staff reported pt was acting normally earlier today and then they found her in her room about an hour ago with heavy breathing and unresponsive. . Historical: - Allergies: 18:12 No Known Allergies; kc6 - PMHx: 18:12 Alzheimer's disease; diabetes mellitus; Hyperlipidemia; Hypertensive disorder; kc6 Hypothyroidism; - PSHx: 18:12 Unable to Obtain; kc6 - Immunization history:: Adult Immunizations unknown. - Infectious Disease History:: Denies. - Social history:: Smoking status: unknown. ROS: 20:00 Constitutional: As per HPI kb Exam: 18:17 ECG was reviewed by the Attending Physician. kb 20:00 Constitutional: This is a well developed, well nourished patient who is awake, alert, kb and in no acute distress. Head/Face: Normocephalic, atraumatic. ENT: Moist Mucous membranes Cardiovascular: Regular rate Respiratory: Respirations even and unlabored. No increased work of breathing. Talking in full sentences Abdomen/GI: Soft, non-tender. No distention Skin: Warm, dry with normal turgor. Normal color. MS/ Extremity: Pulses equal, no cyanosis. Neurovascular intact. Full, normal range of motion. 20:00 Neuro: Mentation: responsive to pain, Vital Signs: 18:12 BP 112 / 63; Pulse 100; Resp 20 S; Pulse Ox 100% on R/A; kc6 19:09 BP 120 / 56; Pulse 90; Resp 17 S; Pulse Ox 100% on R/A; Weight 34.93 kg (M); Height 5 kc6 ft. 4 in. (R); 19:27 Weight 39.46 kg; me1 20:00 BP 101 / 50; Pulse 87; Resp 14; Pulse Ox 100% on R/A; me1 21:00 BP 109 / 70; Pulse 93; Resp 18; Pulse Ox 98% on R/A; me1 22:00 BP 106 / 60; Pulse 94; Resp 12; Pulse Ox 100% on R/A; me1 19:09 Body Mass Index 13.22 (39.46 kg, 162.56 cm) kc6 MDM: 18:14 Patient medically screened. kb 18:17 Data reviewed: vital signs, nurses notes. kb 20:01 Differential Diagnosis DKA, CVA, abnormal electrolytes, dehydration. Consideration of kb Admission/Observation Patient was admitted/placed on observation. Escalation of care including admission/observation considered. Management of patient was discussed with the following: Hospitalist: Dr Sebastian accepts pt for admission. Historians other than the Patient: EMS: [facility]. Counseling: I had a detailed discussion with the patient and/or guardian regarding the historical points, exam findings, and any diagnostic results supporting the discharge/admit diagnosis, lab results, radiology results, the need for further work-up and treatment in the hospital. 01/27 18:15 Order name: Blood Culture Adult (2) kb 01/27 18:15 Order name: CBC with Diff; Complete Time: 21:57 kb 01/27 18:15 Order name: CMP; Complete Time: 20:12 kb 01/27 18:15 Order name: Lactate w/ 2H reflex if indic.; Complete Time: 19:16 kb 01/27 18:15 Order name: Protime (+inr); Complete Time: 20:32 kb 01/27 18:15 Order name: Ptt, Activated; Complete Time: 20:32 kb 01/27 18:15 Order name: Urinalysis w/ reflexes kb 01/27 18:16 Order name: BETA HYDROXYBUTYRATE; Complete Time: 20:12 kb 01/27 18:16 Order name: ABG; Complete Time: 18:48 kb 01/27 18:45 Order name: Glucose, Ancillary Testing; Complete Time: 18:46 EDMS 01/27 20:27 Order name: Urinalysis w/ reflexes EDMS 01/27 20:27 Order name: CBC with Automated Diff EDMS 01/27 20:27 Order name: CBC with Automated Diff EDMS 01/27 20:27 Order name: Comprehensive Metabolic Panel EDMS 01/27 20:27 Order name: Comprehensive Metabolic Panel EDMS 01/27 20:41 Order name: Glucose me1 01/27 20:50 Order name: Glucose, Ancillary Testing; Complete Time: 20:50 EDMS 01/27 21:10 Order name: Ghost Lactate-NO COLLECT Timer; Complete Time: 21:17 EDMS 01/27 21:19 Order name: Glucose Level; Complete Time: 21:19 EDMS 01/27 21:56 Order name: CBC Smear Scan; Complete Time: 21:57 EDMS 01/27 18:15 Order name: Chest Single View XRAY; Complete Time: 18:57 kb 01/27 18:15 Order name: CT Head Brain wo Cont; Complete Time: 19:08 kb 01/27 18:15 Order name: Accucheck; Complete Time: 18:34 kb 01/27 18:15 Order name: Cardiac monitoring; Complete Time: 18:18 kb 01/27 18:15 Order name: EKG - Nurse/Tech; Complete Time: 18:18 kb 01/27 18:15 Order name: IV Saline Lock - Large Bore; Complete Time: 18:34 kb 01/27 18:15 Order name: Labs collected and sent; Complete Time: 18:34 kb 01/27 18:15 Order name: O2 Per Protocol; Complete Time: 18:18 kb 01/27 18:15 Order name: O2 Sat Monitoring; Complete Time: 18:18 kb 01/27 18:15 Order name: Vital Signs; Complete Time: 18:18 kb 01/27 21:18 Order name: Misc. Order: please draw repeat lactate; Complete Time: 22:33 kb EC:17 Rate is 100 beats/min. Rhythm is regular. MT interval is normal at 170 msec. QRS kb interval is normal at 82 msec. QT interval is normal at 482 msec. Administered Medications: 18:34 Drug: NS 0.9% IV 1000 ml IV at 1000 ml once Route: IV; Rate: 1000 ml; Site: right kc6 antecubital; 19:28 Follow up: Response: No adverse reaction; IV Status: Completed infusion; IV Intake: me1 1000ml 19:25 Drug: Sodium Bicarbonate IVP 1 amp IVP once; (50 mL); equals 50 mEq Route: IVP; Site: me1 right antecubital; 19:27 Follow up: Response: No adverse reaction me1 19:50 Drug: Insulin Drip - (Insulin Regular Human IVP 100 units, NS 0.9% IV 100 ml) IV at me1 calculated rate continuous; Standard concentration 1unit/ml; Dose for DKA is 0.1 units/kg/hr {Co-Signature: vc1 (Keerthi Gay RN).} Route: IV; Rate: calculated rate; Site: right antecubital; 23:07 Follow up: Response: No adverse reaction; IV Status: Completed infusion; Infusion me1 continued upon admission 20:07 Drug: NS 0.9% IV 1000 ml IV at 1000 ml once Route: IV; Rate: 1000 ml; Site: left me1 antecubital; 23:07 Follow up: Response: No adverse reaction; IV Status: Completed infusion me1 Disposition Summary: 01/28/24 20:04 Hospitalization Ordered Notes: Hospitalization Status: Inpatient Admission kb Provider: Gigi Sebastian Location: Intensive Care Unit kb Condition: Stable kb Problem: new kb Symptoms: are unchanged kb Bed/Room Type: [facility] Room Assignment: 7-(01/28/24 21:06) Diagnosis - Diabetes mellitus due to underlying condition with ketoacidosis kb Forms: - Medication Reconciliation Form kb - SBAR form kb - Leadership Thank You Letter kb Critical care time excluding procedures: 20:02 Critical care time: Bedside Care: 10 minutes, Consultation: 10 minutes, Family kb Intervention: 10 minutes. Total time: 30 minutes Signatures: Dispatcher [employer] Lashawn Fry, BECK TENDER-C BECK TENDER-Taina Jordan RN RN [place] Kaitlyn RN RN Najma Manzanares RN RN me1 Keerthi Gay RN vc1 Corrections: (The following items were deleted from the chart) 18:16 18:16 BLOOD CULTURE*+BA.LAB.BRZ ordered. EDMS EDMS 18:16 18:16 CBC+H.LAB.BRZ ordered. EDMS EDMS 18:16 18:16 COMPREHENSIVE METABOLIC PANEL+C.LAB.BRZ ordered. EDMS EDMS 18:16 18:16 LACTATE+C.LAB.BRZ ordered. EDMS EDMS 18:16 18:16 PROTIME (+INR)+COAG.LAB.BRZ ordered. EDMS EDMS 18:16 18:16 PTT, ACTIVATED+COAG.LAB.BRZ ordered. EDMS EDMS 18:16 18:16 Urinalysis+U.LAB.BRZ ordered. EDMS EDMS 18:16 18:16 Chest Single View+RAD.RAD.BRZ ordered. EDMS EDMS 18:16 18:16 Head Brain Wo Cont+CT.RAD.BRZ ordered. EDMS EDMS 18:17 18:17 Arterial Blood Gas+RC.LAB.BRZ ordered. EDMS EDMS 20:51 20:04 kb sp 21:06 20:51 2- sp kl
--- NOTE | 2024-01-28 20:04 | ER ---
Nurse's Notes [facility] Name: Precious Altamirano Age: 78 yrs Sex: Female : 1945 Arrival Date: 01/28/2024 Time: 18:12 Bed 19 Private MD: Diagnosis: Diabetes mellitus due to underlying condition with ketoacidosis Presentation: 01/27 18:12 Chief complaint: EMS states: they were toned out to [facility] for unresponsive and kc6 unable to obtain a BP. staff states pt was normal this morning but did mention that her BGL was reading in the 400's and she was recently d/c for DKA. 18:12 Coronavirus screen: At this time, the client does not indicate any symptoms associated kc6 with coronavirus-19. Ebola Screen: No symptoms or risks identified at this time. Initial Sepsis Screen: Does the patient meet any 2 criteria? Altered Mental Status. HR > 90 bpm. Does the patient have a suspected source of infection? No. Patient's initial sepsis screen is negative. Risk Assessment: Do you want to hurt yourself or someone else? Patient reports no desire to harm self or others. Onset of symptoms was January 28, 2024. 18:12 Method Of Arrival: EMS: [facility] kc6 18:12 Acuity: JAILENE 2 kc6 Triage Assessment: 18:12 General: Appears distressed, uncomfortable, slender, well groomed, Behavior is kc6 unresponsive. Smells of ketones. Pain: Unable to use pain scale. Patient is disoriented. Patient is unresponsive. EENT: No signs and/or symptoms were reported regarding the EENT system. Neuro: Level of Consciousness is confused, unresponsive, Oriented to none Facial symmetry appears normal, Pupils are PERRLA. Cardiovascular: Heart tones S1 S2 present Capillary refill < 3 seconds Rhythm is sinus tachycardia. Respiratory: Airway is patent Trachea midline Respiratory effort is even, unlabored, Respiratory pattern is regular, symmetrical. GI: No signs and/or symptoms were reported involving the gastrointestinal system. : No signs and/or symptoms were reported regarding the genitourinary system. Derm: No signs and/or symptoms reported regarding the dermatologic system. Skin is intact, is fragile, is thin, with poor turgor Skin is dry, Skin is normal, Skin temperature is warm. Musculoskeletal: No signs and/or symptoms reported regarding the musculoskeletal system. Circulation, motion, and sensation intact. Capillary refill < 3 seconds, Range of motion: intact in all extremities. Historical: - Allergies: 18:12 No Known Allergies; kc6 - PMHx: 18:12 Alzheimer's disease; diabetes mellitus; Hyperlipidemia; Hypertensive disorder; kc6 Hypothyroidism; - PSHx: 18:12 Unable to Obtain; kc6 - Immunization history:: Adult Immunizations unknown. - Infectious Disease History:: Denies. - Social history:: Smoking status: unknown. Screenin:12 [facility] ED Fall Risk Assessment (Adult) History of falling in the last 3 months, kc6 including since admission No falls in past 3 months (0 pts) Confusion or Disorientation Yes (5 pts) Intoxicated or Sedated No (0 pts) Impaired Gait No (0 pts) Mobility Assist Device Used No (0 pt) Altered Elimination No (0 pt) Score/Fall Risk Level 3 or more points = High Risk. Abuse screen: Denies threats or abuse. Denies injuries from another. Nutritional screening: No deficits noted. Tuberculosis screening: No symptoms or risk factors identified. Assessment: 18:12 Reassessment: please see triage. kc6 19:15 General: Appears slender, well developed, Behavior is unresponsive. Smells of ketones. me1 Pain: Unable to use pain scale. Patient is unresponsive. Neuro: Level of Consciousness is unresponsive, Oriented to none. Cardiovascular: Capillary refill < 3 seconds Patient's skin is warm and dry. Respiratory: Airway is patent Respiratory effort is even, unlabored, Respiratory pattern is regular, symmetrical. GI: No signs and/or symptoms were reported involving the gastrointestinal system. : No signs and/or symptoms were reported regarding the genitourinary system. EENT: No signs and/or symptoms were reported regarding the EENT system. Derm: Skin with poor turgor Skin is dry, Skin is pale. Musculoskeletal: No signs and/or symptoms reported regarding the musculoskeletal system. Vital Signs: 18:12 BP 112 / 63; Pulse 100; Resp 20 S; Pulse Ox 100% on R/A; kc6 19:09 BP 120 / 56; Pulse 90; Resp 17 S; Pulse Ox 100% on R/A; Weight 34.93 kg (M); Height 5 kc6 ft. 4 in. (R); 19:27 Weight 39.46 kg; me1 20:00 BP 101 / 50; Pulse 87; Resp 14; Pulse Ox 100% on R/A; me1 21:00 BP 109 / 70; Pulse 93; Resp 18; Pulse Ox 98% on R/A; me1 22:00 BP 106 / 60; Pulse 94; Resp 12; Pulse Ox 100% on R/A; me1 19:09 Body Mass Index 13.22 (39.46 kg, 162.56 cm) kc6 ED Course: 18:12 Patient maintains SpO2 saturation greater than 95% on room air. kc6 18:12 Arm band placed on. EKG completed in triage. Results shown to MD. kc6 18:12 Patient has correct armband on for positive identification. Placed in gown. Bed in low kc6 position. Call light in reach. Side rails up X2. Adult w/ patient. lunchroom monitor on. Pulse ox on. NIBP on. Door closed. Noise minimized. Lights dimmed. Warm blanket given. Pillow given. 18:14 Patient arrived in ED. kb 18:14 Lashawn Pires FNP-C is PHCP. kb 18:14 Wilder Veronica MD is Attending Physician. kb 18:18 Lianna Trevizo RN is Primary Nurse. kc6 18:30 Initial lab(s) drawn, by ga, sent to lab. First set of blood cultures drawn by ga. cm10 18:38 Inserted saline lock: 18 gauge in right antecubital area, using aseptic technique. cm10 Blood collected. Flushed with 10 mL NS. 18:50 Chest Single View XRAY In Process Unspecified. EDMS 18:59 CT Head Brain wo Cont In Process Unspecified. EDMS 19:05 Triage completed. kc6 19:09 Report given to Najma López RN. kc6 20:03 Gigi Sebastian MD is Hospitalizing Provider. kb 20:06 Second set of blood cultures drawn by ga. me1 20:08 Inserted saline lock: 22 gauge in left antecubital area, using aseptic technique. me1 20:46 Glucose Sent. me1 22:39 Patient admitted, IV remains in place. me1 22:40 No provider procedures requiring assistance completed. me1 22:40 Provided Education on: POC. Daughter verbalized understanding.. me1 Administered Medications: 18:34 Drug: NS 0.9% IV 1000 ml IV at 1000 ml once Route: IV; Rate: 1000 ml; Site: right kc6 antecubital; 19:28 Follow up: Response: No adverse reaction; IV Status: Completed infusion; IV Intake: me1 1000ml 19:25 Drug: Sodium Bicarbonate IVP 1 amp IVP once; (50 mL); equals 50 mEq Route: IVP; Site: ga1 right antecubital; 19:27 Follow up: Response: No adverse reaction me1 19:50 Drug: Insulin Drip - (Insulin Regular Human IVP 100 units, NS 0.9% IV 100 ml) IV at ga1 calculated rate continuous; Standard concentration 1unit/ml; Dose for DKA is 0.1 units/kg/hr {Co-Signature: vc1 (Keerthi Gay RN).} Route: IV; Rate: calculated rate; Site: right antecubital; 23:07 Follow up: Response: No adverse reaction; IV Status: Completed infusion; Infusion me1 continued upon admission 20:07 Drug: NS 0.9% IV 1000 ml IV at 1000 ml once Route: IV; Rate: 1000 ml; Site: left ga1 antecubital; 23:07 Follow up: Response: No adverse reaction; IV Status: Completed infusion me1 Medication: 22:40 VIS not applicable for this client. me1 Intake: 19:28 IV: 1000ml; Total: 1000ml. me1 Outcome: 20:04 Decision to Hospitalize by Provider. kb 22:39 Admitted to ICU accompanied by nurse, via stretcher, room -7, with chart, Report called me1 to FEMI Cosby 22:39 Condition: stable 22:39 Instructed on the need for admit, 23:05 Patient left the ED. me1 Signatures: Dispatcher [employer] Lashawn Fry, ALEKSANDR GREEN-Lianna Munguia RN RN kc6 Daily Vaca RN RN cm10 Najma López RN RN me1 Keerthi Gay RN vc1 Corrections: (The following items were deleted from the chart) 23:10 22:38 General: me1 me1
[2024-01-28] MEDS ORDERED: ONDANSETRON 4 MG/2 ML VIAL IV PRN (20:20)
[2024-01-28] MEDS ORDERED: ALBUTEROL 2.5 MG/3 ML NEB SOL NEB PRN (20:20)
[2024-01-28] MEDS ORDERED: ACETAMINOPHEN 325 MG TABLET PO PRN (20:20)
[2024-01-28] MEDS ORDERED: GLUCAGON 1 MG/VIAL IM PRN (20:27)
[2024-01-28] MEDS ORDERED: D50W 25 GM/50 ML SYRINGE IV PRN (20:27)
--- NOTE | 2024-01-28 20:29 | P.HP ---
Certification for Inpatient Patient admitted to: Inpatient With expected LOS: >2 Midnights Practitioner: I am a practitioner with admitting privileges, knowledge of patient current condition, hospital course, and medical plan of care. Services: Services provided to patient in accordance with Admission requirements found in Title 42 Section 412.3 of the Code of Federal Regulations Patient History Date of Service: 01/28/24 Reason for admission: DKA History of Present Illness: 78 yrs old Female with past medical history of Alzheimer's dementia, diabetes, hyperlipidemia, hypertension, hypothyroidism who was in dementia care brought to ER with altered mental status. Patient is altered hence most of the history is obtained from the chart review and also talking to the family member at the bedside. Daughter stated that the patient has not been eating the recent few days. Patient has a history of hip fracture since which she has been on the decline. She also has a history of recurrent UTI and history of multiple falls. Patient was assessed in the ER and was admitted for further management. Patient found to be in DKA and admitted to the ICU with insulin drip Allergies No Known Allergies Allergy (Unverified 10/23/23 22:23) Home medications list reviewed: Yes Home Medications: Acetaminophen 1,000 mg PO TID PRN 01/15/24 Acetaminophen 500 mg PO Q6H PRN 01/15/24 Dapagliflozin Propanediol [Farxiga] 10 mg PO DAILY 01/15/24 Ferrous Sulfate 325 mg PO DAILY 01/15/24 Glimepiride 4 mg PO BID 01/15/24 Levothyroxine [Synthroid*] 112 mcg PO DAILY 01/15/24 Magnesium Chloride [Slow-Mag*] 71.5 mg PO BID 01/15/24 Metformin HCl 1,000 mg PO BID 01/15/24 Mirtazapine 15 mg PO DAILY 01/15/24 Pantoprazole [Protonix Tab*] 40 mg PO DAILY 01/15/24 Pioglitazone HCl 30 mg PO DAILY 01/15/24 Potassium Chloride 20 meq PO BID 01/15/24 Rosuvastatin [Crestor*] 10 mg PO BEDTIME 01/15/24 Trazodone HCl 50 mg PO BEDTIME 01/15/24 Fluconazole [Diflucan] 200 mg PO DAILY 11 Days #11 tab 01/20/24 - Past Medical/Surgical History Diabetic: Yes Past Medical History: Reviewed- Non-Contributory -: DM -: HTN -: Hypothyroidism -: HLD -: chronic UTI Past Surgical History: Reviewed- Non-Contributory -: Hysterectomy -: Thumb Joint Surgery -: right hip sx - Family History Family History: Reviewed- Non-Contributory - Social History Smoking Status: Never smoker Alcohol use: No CD- Drugs: No Caffeine use: No Review of Systems is unable to be obtained Physical Examination - Vital Signs Temperature: 97.2 F Blood Pressure: 112/68 Pulse: 78 Respirations: 20 Pulse Ox (%): 94 - Physical Exam General: Moderate distress, Confused HEENT: Atraumatic, Normocephalic Neck: Supple, No Thyromegaly Respiratory: Normal air movement Cardiovascular: Regular rate/rhythm, Normal S1 S2 Capillary refill: <2 Seconds Gastrointestinal: Soft and benign, W/out hepatosplenomegaly Musculoskeletal: No clubbing, No swelling Integumentary: No rashes Neurological: Abnormal gait, Abnormal speech, Dementia Lymphatics: No axilla or inguinal lymphadenopathy - Studies Laboratory Data (last 24 hrs) 01/28/24 01/28/24 18:30 18:30 WBC 19.10 H Hgb 12.4 Hct 42.5 Plt Count 480 H Sodium 133 L Potassium 5.4 H BUN 44 H Creatinine 1.52 H Glucose 656 H* Total Bilirubin 0.4 AST < 10 L ALT 16 Alkaline Phosphatase 149 H Assessment and Plan - Plan Diabetic ketoacidosis Admit to ICU Insulin drip Aggressive hydration BMP VBG monitored Acute encephalopathy metabolic Possibly induced by UTI/DKA Patient has baseline dementia Neuro vital signs monitor closely Recurrent UTI Leucocytosis Started on IV antibiotics Monitor cultures Change antibiotic as per sensitivity Dementia Hyperlipidemia Continue home medications and titrate as needed GABRIELLE Renal parameters monitored Electrolytes monitored and replace as needed Prognosis guarded GI/DVT prophylaxis Advanced directive full code for now Discharge Plan: Assisted Plan to discharge in: Greater than 2 days - Advance Directives Does patient have a Living Will: Yes Does patient have a Durable POA for Healthcare: Yes - Code Status/Comfort Care Code Status: Full Code Time Spent Managing Pts Care (In Minutes): 50
[2024-01-28 20:30] LABS: PT Prothrombin Time 10.3 SECONDS (9.4-12.5); PTT, Activated Partial Thromb 29.7 SECONDS (24.3-36.9); Protime INR 0.92
[2024-01-28] MEDS ORDERED: D10W 125 ML IV PRN (20:38)
[2024-01-28] MEDS: D5 0.45 NS 1,000 ML IV SCH (21:00)
[2024-01-28 21:55] LABS: White Blood Cell Scan OK (OK)
[2024-01-28 21:56] LABS: Anisocytosis 1+; Blood Morphology Comment NOTED (NOT SEEN); Platelet Estimate INCR; Poikilocytosis 1+
[2024-01-28] MEDS: NACHLORIDE 0.45% 1,000 ML IV SCH (23:30)
[2024-01-29] MEDS: INSULIN REGULAR, HUMAN 100 UNIT in NA CHLORIDE 0.9% 100 ML IV SCH
[2024-01-29] MEDS: PIPER TAZO 3.375 GM in NA CHLORIDE 0.9% 100 ML IV ONE (00:11)
[2024-01-29 02:05] LABS: Anion Gap 22.8 mEq/L (5.0-15.0); Potassium 3.8 mEq/L (3.5-5.1)
[2024-01-29] MEDS: KCL 20 MEQ/100 mL IVPB 20 MEQ/100 ML BAG IV SCH ×2 (02:35→23:12)
[2024-01-29] MEDS: ENOXAPARIN 30 MG/0.3 ML SQ SCH (08:31)
[2024-01-29 08:33] LABS: Absolute Basophils 0.1 K/uL (0-0.5); Absolute Lymphocytes (CBC) 1.1 K/uL (0.7-4.9); Absolute Monocytes 0.5 K/uL (0.1-1.3); Absolute Neutrophil 16.5 K/uL (1.8-8.0); Basophils % 0.3 % (0-1.3); Hematocrit 33.1 % (36.0-45.0); Hemoglobin 10.7 g/dL (12.0-15.0); Lymphocytes % 6.1 % (15.3-44.8); MCH 29.6 pg (27.0-35.0); MCHC 32.4 g/dL (32.0-36.0); MCV 91.3 fL (80-100); MPV 9.2 fL (7.6-11.3); Neutrophils % 90.6 % (41.7-73.7); Platelets 346 thou/uL (152-406); RBC Red Blood Cell Count 3.63 M/uL (3.86-4.86); Red Cell Distribution Width 15.8 % (12.1-15.2)
[2024-01-29 08:51] LABS: Albumin 3.2 g/dL (3.4-5.0); Albumin/Globulin Ratio 0.9 (1.1-1.8); Alkaline Phosphatase 109 U/L (45-117); Anion Gap 14.3 mEq/L (5.0-15.0); BUN Blood Urea Nitrogen 38 mg/dL (7-18); Bicarbonate 16 mEq/L (21-32); Bilirubin Total 0.3 mg/dL (0.2-1.0); Globulin 3.6 g/dL (2.3-3.5); Glomerular Filtration Rate 49 ml/min (=/>90); Glucose Level 190 mg/dL (74-106); Potassium 4.3 mEq/L (3.5-5.1); Protein, Total 6.8 g/dL (6.4-8.2); Sodium Level 140 mEq/L (136-145)
[2024-01-29 09:23] LABS: ALT/SGPT < 14 U/L (13-56); AST/SGOT < 10 U/L (15-37)
[2024-01-29] MEDS: PIPER TAZO 3.375 GM in NA CHLORIDE 0.9% 100 ML IV SCH (11:45)
--- NOTE | 2024-01-29 12:10 | P.PN ---
Subjective Date of Service: 01/29/24 Chief Complaint: DKA Patient is confused and not able to give any subjective. No reported nausea vomiting or diarrhea. She has been afebrile. Currently n.p.o.. Physical Examination - Vital Signs Temperature: 97.1 F Blood Pressure: 110/54 Pulse: 96 Respirations: 12 Pulse Ox (%): 100 - Studies Laboratory Data (last 24 hrs) 01/28/24 01/28/24 01/28/24 18:30 18:30 18:30 WBC 19.10 H Hgb 12.4 Hct 42.5 Plt Count 480 H PT 10.3 INR 0.92 APTT 29.7 Sodium 133 L Potassium 5.4 H BUN 44 H Creatinine 1.52 H Glucose 656 H* Total Bilirubin 0.4 AST < 10 L ALT 16 Alkaline Phosphatase 149 H Assessment And Plan - Plan Physical examination General: Confused, not in acute distress HEENT: Conjunctiva not pale, anicteric sclera Neck: Supple, no elevated JVD Heart: Heart sounds 1 and 2 normal, regular rhythm, normal rate, no pedal edema Lungs: Clear to auscultation bilaterally, adequate breath sounds bilaterally, no rhonchi or crackles. Abdomen: Soft, nondistended, nontender, normal bowel sounds. Extremities: No tenderness, no deformity Skin: Normal skin turgor, no rash, no nodules or ulcers. Neuro: No focal motor deficit. Confused Psychiatry: no agitation. Assessment and plan Diabetic ketoacidosis Acute encephalopathy metabolic due to diabetic ketoacidosis Improving. Continue telemetry insulin drip Aggressive hydration Monitor BMP and fingerstick glucose per DKA protocol. Empiric IV antibiotics given leukocytosis GABRIELLE Improving Continue IV fluid. Monitor electrolytes and replace as needed Leucocytosis History of recurrent UTI. Continue IV antibiotics Obtain urinalysis with reflex urine culture Dementia Hyperlipidemia Continue home medications. GI/DVT prophylaxis: Lovenox Advanced directive: DNR
[2024-01-29 14:00] LABS: Anion Gap 8.5 mEq/L (5.0-15.0); Potassium 3.5 mEq/L (3.5-5.1)
[2024-01-29 15:58] LABS: Specific Gravity > 1.030 (1.005-1.030); Sqamous Epithelial None Seen /HPF (None Seen); Urine Bacteria None Seen /HPF (<20); Urine Bilirubin 1+ (Negative); Urine Blood Trace (Negative); Urine Clarity Extremely Turbid (Clear); Urine Color Light-Yellow (Yellow); Urine Culture Reflex Order NOT NEEDED; Urine Glucose 4+ (Over) (Negative); Urine Ketones 1+ (Negative); Urine Microscopic Reflex YN ORDER UMIC; Urine Mucus Slight /HPF (None Seen); Urine Nitrite NEGATIVE (Negative); Urine Protein 1+ (Negative); Urine RBC None Seen /HPF (None Seen); Urine Urobilinogen Normal (Normal); Urine WBC None Seen /HPF (<5); Urine Yeast (Budding) Many /HPF (None Seen); Urine pH 5.5 (5.0-7.0)
[2024-01-29 17:30] LABS: Anion Gap 10.4 mEq/L (5.0-15.0); Potassium 3.4 mEq/L (3.5-5.1)
[2024-01-29] MEDS ORDERED: GLUCAGON 1 MG/VIAL IM PRN (21:33)
[2024-01-29] MEDS ORDERED: D10W 125 ML IV PRN (21:33)
[2024-01-30] MEDS: INSULIN REGULAR (HUMAN) 100 UNIT/ML SQ SCH
[2024-01-30 05:38] VITALS: BMI 16.7
[2024-01-30 07:55] LABS: BETA HYDROXYBUTYRATE > 4.50 mmol/L (0.02-0.27)
[2024-01-30 09:11] LABS: Anion Gap 11.1 mEq/L (5.0-15.0); Potassium 3.1 mEq/L (3.5-5.1)
[2024-01-30 09:19] LABS: Absolute Monocytes 0.4 K/uL (0.1-1.3); Absolute Neutrophil 7.7 K/uL (1.8-8.0); Basophils % 0.1 % (0-1.3); Eosinophils % 0.2 % (0-4.4); Hematocrit 28.3 % (36.0-45.0); Hemoglobin 9.5 g/dL (12.0-15.0); Lymphocytes % 10.6 % (15.3-44.8); MCH 29.8 pg (27.0-35.0); MCHC 33.4 g/dL (32.0-36.0); MCV 89.3 fL (80-100); MPV 9.3 fL (7.6-11.3); Monocytes % 4.8 % (3.3-12.3); Neutrophils % 84.3 % (41.7-73.7); Platelets 255 thou/uL (152-406); RBC Red Blood Cell Count 3.17 M/uL (3.86-4.86); Red Cell Distribution Width 15.8 % (12.1-15.2)
--- NOTE | 2024-01-30 15:54 | P.PN ---
Subjective Date of Service: 01/30/24 Chief Complaint: DKA Patient remained confused. She has been refusing to eat. No reported nausea vomiting or diarrhea. Physical Examination - Vital Signs Temperature: 97.8 F Blood Pressure: 119/53 Pulse: 89 Respirations: 20 Pulse Ox (%): 100 Assessment And Plan - Plan Physical examination General: Confused, not in acute distress HEENT: Anicteric sclera Neck: Supple, no elevated JVD Heart: Heart sounds 1 and 2 normal, regular rhythm, normal rate, no pedal edema Lungs: Clear to auscultation bilaterally, adequate breath sounds bilaterally, no rhonchi or crackles. Abdomen: Soft, nondistended, nontender, normal bowel sounds. Extremities: No tenderness, no deformity Skin: Normal skin turgor, no rash, no nodules or ulcers. Neuro: No focal motor deficit. Confused Psychiatry: no agitation. Assessment and plan Diabetic ketoacidosis Acute encephalopathy metabolic due to diabetic ketoacidosis DKA resolved, patient transitioned from insulin drip to subcutaneous insulin. Patient declining to eat Continue IV hydration with D5-1/2NS Continue to monitor BMP. I had a discussion with her daughter Natalie Hui who requested patient to be placed on hospice. Discontinue antibiotics yes. Social service consulted for hospice GABRIELLE Resolved Continue IV fluid maintenance Monitor electrolytes and replace as needed Leucocytosis History of recurrent UTI. Leukocytosis resolved. Urinalysis shows yeast. No bacteriuria or pyuria. Dementia Hyperlipidemia Continue home medications. GI/DVT prophylaxis: Lovenox Advanced directive: DNR
[2024-01-30] MEDS ORDERED: ALBUTEROL 2.5 MG/3 ML NEB SOL NEB PRN (16:05)
[2024-01-30] MEDS: D5 0.45 NS 1,000 ML IV SCH (16:49)
[2024-01-31 10:17] LABS: Absolute Lymphocytes (CBC) 0.9 K/uL (0.7-4.9); Absolute Monocytes 0.3 K/uL (0.1-1.3); Absolute Neutrophil 3.6 K/uL (1.8-8.0); Basophils % 0.5 % (0-1.3); Eosinophils % 0.2 % (0-4.4); Hematocrit 30.8 % (36.0-45.0); Hemoglobin 10.4 g/dL (12.0-15.0); Lymphocytes % 18.5 % (15.3-44.8); MCH 29.7 pg (27.0-35.0); MCHC 33.9 g/dL (32.0-36.0); MCV 87.8 fL (80-100); MPV 8.9 fL (7.6-11.3); Monocytes % 6.7 % (3.3-12.3); Neutrophils % 74.1 % (41.7-73.7); Nucleated Red Blood Cells % 0.1 % (0-0); Platelets 272 thou/uL (152-406); RBC Red Blood Cell Count 3.51 M/uL (3.86-4.86)
[2024-01-31 10:34] LABS: Anion Gap 12.8 mEq/L (5.0-15.0); Potassium 2.8 mEq/L (3.5-5.1)
--- NOTE | 2024-01-31 11:29 | P.PN ---
Date of Service: 01/31/24 Subjective: no acute events overnight reports doing ok, wanting to rest ROS: 10 point ROS as noted above, otherwise negative Physical Exam: GEN: Confused, not in acute distress, +dementia CV: Regular rate and rhythm, no edema Pulm: Nonlabored respirations on room air ABD: Soft, nontender, nondistended vitals reviewed Problem List: Diabetic ketoacidosis, resolved Acute encephalopathy metabolic due to diabetic ketoacidosis GABRIELLE, resolved Leucocytosis History of recurrent UTI. Dementia Hyperlipidemia Diabetic ketoacidosis, resolved Acute encephalopathy metabolic due to diabetic ketoacidosis anion gap 33.4, uncontrolled glucose in 500-600s on admission. DKA resolved, anion gap closed 01/28. Insulin drip transitioned to subq insulin (01/29) Discussed patients condition at length with patient, family. Given her worsening declination, qualify of life, frequent falls and recurrent hospitalizations, the decision for Hospice was made by the patient and her family. environmental services tech & hospice consulted comfort care dc IVF, dc accucheks GABRIELLE, prerenal; resolved Resolved with IVF Leucocytosis History of recurrent UTI. Leukocytosis resolved 01/29 Urinalysis shows yeast. No bacteriuria or pyuria. Blood cx (01/27): NGTD antibiotics dc'd 01/29 Dementia Hyperlipidemia Continue home medications. VTE: lovenox Code: DNR Dispo: hospice at SNF Time Spent Managing Pts Care (In Minutes): 40
--- NOTE | 2024-01-31 12:46 | EKG ---
Test Date: 2024-01-28 Test Time: 18:14:43 Pulmonary Disease Specialist: CINDY MEASUREMENT RESULTS: Intervals: Rate: 100 NE: 170 QRSD: 82 QT: 374 QTc: 482 [place]: P: 72 NE: 170 QRS: -78 T: 80 INTERPRETIVE STATEMENTS: Normal sinus rhythm Biatrial enlargement Left axis deviation Low voltage QRS Inferior infarct, age undetermined Cannot rule out Anterior infarct, age undetermined Abnormal ECG Compared to ECG 01/14/2024 14:40:57 Low QRS voltage now present Sinus tachycardia no longer present Myocardial infarct finding still present Electronically Signed On 01-31-24 12:43:[address]
[2024-01-31] MEDS: KCL 20 MEQ/100 mL IVPB 20 MEQ/100 ML BAG IV SCH (17:25)
[2024-01-31] MEDS ORDERED: KCL 20 MEQ/100 mL IVPB 20 MEQ/100 ML BAG IV SCH (18:00)
[2024-02-01] MEDS: KCL 20 MEQ/100 mL IVPB 20 MEQ/100 ML BAG IV SCH (08:00)
[2024-02-01 10:29] VITALS: O2SAT 100
[2024-02-01 12:10] VITALS: BP 144/76; TEMP 98.3
== END 2024-02-01 15:37 | disposition hospice, inpatient (51) | DRG 637 ==
LOC: ER 18:12 → ERHOLD 20:20 → 3RD-ICU 21:05 → 4TH 01-30 13:50
PROVIDERS: ADMIT Family Medicine; ATTEND Hospitalist
PROC: 4A033R1 Measurement of Arterial Saturation, Peripheral, Percutaneous Approach (ICD-10-PCS; principal; 2024-01-28)
DX: E11.10 Type 2 diabetes mellitus with ketoacidosis without coma (principal); E43 Unspecified severe protein-calorie malnutrition; G93.41 Metabolic encephalopathy; N17.9 Acute kidney failure, unspecified; N39.0 Urinary tract infection, site not specified; Z68.1 Body mass index [BMI] 19.9 or less, adult; F02.80 Dementia in other diseases classified elsewhere, unspecified severity, without behavioral disturbance, psychotic disturbance, mood disturbance, and anxiety; L89.151 Pressure ulcer of sacral region, stage 1; G30.9 Alzheimer's disease, unspecified; E03.9 Hypothyroidism, unspecified; I10 Essential (primary) hypertension; E78.5 Hyperlipidemia, unspecified; Z66 Do not resuscitate; R63.0 Anorexia
CPT/HCPCS: 36415; 36600; 70450; 71045; 80048; 80053; 81001; 82010; 82805; 82947; 83605; 85025; 85610; 85730; 87040; 93005; 94760; 96361; 96365; 96366; 96375; 99285; J1650; J2543; J3480; J7030; J7799